=== PATIENT | male | born 1935 | race Caucasian/White ===

== ENCOUNTER 2018-01-24 11:19 | Emergency (ER) | payer MEDICARE, BC ==
[2018-01-24] MEDS ORDERED: Bacitracin Zinc 1 Packet ONE (12:39)
[2018-01-24] MEDS ORDERED: Adacel (T-DAP) 0.5 ML VIAL ONE (12:50)
== END 2018-01-24 13:15 | disposition home or self-care (01) ==
LOC: ERS 11:19
DX: S51.012A Laceration without foreign body of left elbow, initial encounter (principal); I25.10 Atherosclerotic heart disease of native coronary artery without angina pectoris; I11.0 Hypertensive heart disease with heart failure; I50.9 Heart failure, unspecified; E03.9 Hypothyroidism, unspecified; K21.9 Gastro-esophageal reflux disease without esophagitis; E78.5 Hyperlipidemia, unspecified; W01.0XXA Fall on same level from slipping, tripping and stumbling without subsequent striking against object, initial encounter
CPT/HCPCS: 90471; 90715

== ENCOUNTER 2018-02-02 13:42 | Outpatient (CLI) | payer MEDICARE, BC ==
[~2018-02-02 13:42] MED LIST: Sodium Chloride 0.9% 15 ML NEB ONE
--- NOTE | 2018-02-02 19:11 | HP ---
DATE OF SERVICE: 02/02/2018 HISTORY OF PRESENT ILLNESS: Mr. Jack Angelo is a very pleasant 82-year-old gentleman, who presents to the [facility] for evaluation of a wound of the left upper arm from a skin tear. The patient s tates that he fell approximately 10 days ago. He states that for the wound of his left upper arm, he was seen in the Emergency Department on the following day after his fall. The patient states that t he wound from his skin tear was cleansed and antibiotic ointment applied and bandaged. The patient s vandana being seen in the Emergency Department has been receiving dressing changes every other day of an antibiotic ointment followed by 4 x 4s and Kerlix secured with tape. The wound is being cleansed wi th water at the time of dressing changes. At the time of the patient's visit in the Emergency Depart ment, Mr. Angelo was referred to the Wound Center for further evaluation and treatment. PAST MEDICAL HISTORY: 1. Psoriasis. 2. Hypertension. 3. Atrial fibrillation. 4. Coronary artery disease. 5. History of bladder cancer. 6. Cardiomyopathy. 7. Diabetes mellitus. 8. Osteoarthritis. 9. Gastroesophageal reflux disease. 10. Choledocholithiasis. 11. History of chronic pancreatitis. 12. COPD. 13. History of hepatic encephalopathy. 14. Chronic liver disease. PAST SURGICAL HISTORY: 1. Removal of scar from neck. 2. Knee arthroscopy. 3. Coronary artery bypass grafting x3/intraoperative maze procedure. 4. Laser ablation of bladder tumor x3. 5. Right shoulder replacement and left shoulder replacement. 6. Cystectomy/Penny pouch and prostatectomy in 2004. 7. Laparoscopic cholecystectomy. 8. AICD placement. MEDICATIONS: 1. Aspirin 81 mg. 2. Atorvastatin. 3. Coenzyme Q10. 4. Coreg. 5. Tarceva. 6. NovoLog. 7. Omeprazole. 8. Xifaxan. 9. Potassium chloride. 10. Torsemide. 11. Metolazone. 12. Lisinopril. 13. Magnesium oxide. 14. Lactulose. 15. Zenpep. 16. Synthroid. 17. Advair Diskus. 18. Spiriva. 19. Folic acid. 20. Cinnamon. 21. Vitamin D3. ALLERGIES: No known diagnosed allergies. SOCIAL HISTORY: Significant for tobacco use of up to 1 pack of cigarettes per day for 30 years. The patient states that he stopped smoking 25 years ago. The patient also admits to the moderate consum ption of alcohol in the past. The patient states that he stopped consuming alcohol completely 12 yea rs ago. FAMILY HISTORY: Significant for diabetes mellitus. The patient states that his son and a half-broth er were both diagnosed with diabetes mellitus. Family history is negative for coronary artery diseas e. PHYSICAL EXAMINATION: VITAL SIGNS: Temperature 97.5, pulse 71, respirations 17, blood pressure 106/63. Accu-Chek is 204. GENERAL: An 82-year-old gentleman sitting on wheelchair in examination room, in no acute distress. HEENT: Normocephalic, atraumatic. NECK: No nuchal rigidity. CHEST: Clear to auscultation. CARDIOVASCULAR: Irregular. ABDOMEN: Soft. EXTREMITIES: A wound of the left upper arm is present, which measures approximately 7.1 x 3.0 cm. G ranulation tissue is present within the wound margins. No purulent drainage is associated with the w ound. No erythema of the skin surrounding the wound is present. No maceration of the skin of the pe riwound is noted. ASSESSMENT AND PLAN: 1. Wound of left upper arm from a skin tear subsequent to a fall. Dressing changes of Silvercel, 4 x 4s, Kerlix, and an Oracio bandage will be initiated today. These dressing changes are to be performed on a daily basis or alternatively every other day after cleansing and irrigation. I will see Mr. Me choudhary again in two weeks if the wound is still present at this time. No antibiotics will be prescribe d today based upon the appearance of the wound. The patient understands and is in agreement with the preceding treatment plan. 2. Psoriasis. 3. Hypertension. 4. Atrial fibrillation. 5. Coronary artery disease. 6. History of bladder carcinoma. 7. Cardiomyopathy. 8. Diabetes mellitus. The patient's Accu-Chek in clinic today is 204. The patient has been told th at for optimal wound healing, his blood glucoses should remain below 150. 9. Osteoarthritis. 10. Gastroesophageal reflux disease. 11. Choledocholithiasis. 12. History of chronic pancreatitis. 13. Chronic obstructive pulmonary disease. 14. History of hepatic encephalopathy. 15. Chronic liver disease.
== END 2018-02-02 13:43 | disposition home or self-care (01) ==
LOC: WCC 13:42
PROVIDERS: ATTEND Family Medicine
DX: S41.102D Unspecified open wound of left upper arm, subsequent encounter (principal); E11.9 Type 2 diabetes mellitus without complications; K21.9 Gastro-esophageal reflux disease without esophagitis; L40.9 Psoriasis, unspecified; I10 Essential (primary) hypertension; I48.91 Unspecified atrial fibrillation; J44.9 Chronic obstructive pulmonary disease, unspecified; K76.9 Liver disease, unspecified; I25.10 Atherosclerotic heart disease of native coronary artery without angina pectoris; I51.7 Cardiomegaly; M19.90 Unspecified osteoarthritis, unspecified site; K80.50 Calculus of bile duct without cholangitis or cholecystitis without obstruction; Z85.51 Personal history of malignant neoplasm of bladder; Z86.61 Personal history of infections of the central nervous system
CPT/HCPCS: 36416; 97602; 99203; A4218; G0463

== ENCOUNTER 2018-12-24 09:40 | Outpatient (CLI) | payer MEDICARE, BC ==
--- NOTE | 2018-12-24 12:02 | ULT ---
HEPATIC DOPPLER ULTRASOUND: HISTORY: Cirrhosis, pancreatitis. FINDINGS: Multiple longitudinal and transverse images of the liver were obtained using a Multihertz curvilinear transducer. Real-time, color flow, and spectral waveform Doppler analysis demonstrates visualized p ortions of the pancreas to be unremarkable. Normal flow is seen in the hepatic veins. Hepatopetal f low is seen in the portal system. Good blood flow is seen in the inferior vena cava. No evidence of intrahepatic biliary dilatation seen. The gallbladder has been surgically removed. The spleen is unremarkable. The abdominal aorta demonstrates a fusiform mid abdominal aortic dilatation, axial diameter measuring 2.9 x 3.4 cm with an area of aneurysmal dilatation superior inferiorly having a length of 4.6 cm. IMPRESSION: Infrarenal abdominal aortic aneurysm. Correlate with CT angiography. POS: SENG
== END 2018-12-24 09:41 | disposition home or self-care (01) ==
LOC: BICULT 09:40
PROVIDERS: ATTEND Internal Medicine Gastroenterology
DX: K86.1 Other chronic pancreatitis (principal); K74.60 Unspecified cirrhosis of liver; K86.89 Other specified diseases of pancreas; I71.4 Abdominal aortic aneurysm, without rupture
CPT/HCPCS: 76705

== ENCOUNTER 2019-08-23 09:39 | Outpatient (CLI) | payer MEDICARE, BC ==
--- NOTE | 2019-08-23 11:03 | ULT ---
Hepatic sonogram with duplex evaluation HISTORY: Liver disease. FINDINGS: Gallbladder is surgically absent. Common duct is 0.7 cm. Liver heterogeneous without focal mass or intrahepatic biliary dilatation. No free fluid. Spleen measures up to 11.5 cm. Good color and spectral Doppler flow within the splenic artery. Hepati c artery not well documented. Fusiform dilatation of the lower abdominal aorta measures up to 3.0 cm AP diameter on today's exam. Portal venous flow is towards the liver. Hepatic venous flow is towar ds the IVC. IMPRESSION: Status post cholecystectomy. No evidence of biliary obstruction. No evidence of portal venous hypertension. Lower abdominal aortic aneurysm, stable.
== END 2019-08-23 09:40 | disposition home or self-care (01) ==
LOC: ULT 09:39
PROVIDERS: ATTEND Internal Medicine Gastroenterology
DX: K86.1 Other chronic pancreatitis (principal); K21.9 Gastro-esophageal reflux disease without esophagitis; K74.60 Unspecified cirrhosis of liver; K72.90 Hepatic failure, unspecified without coma; R93.5 Abnormal findings on diagnostic imaging of other abdominal regions, including retroperitoneum; I85.00 Esophageal varices without bleeding; Z90.49 Acquired absence of other specified parts of digestive tract; I71.4 Abdominal aortic aneurysm, without rupture; C25.9 Malignant neoplasm of pancreas, unspecified
CPT/HCPCS: 36415; 76705; 86301

== ENCOUNTER 2019-08-27 07:57 | Day surgery (SDC) | payer MEDICARE, BC ==
[2019-08-26 09:10] VITALS: BMI 25.7
[2019-08-27] MEDS ORDERED: PHENYLEPHRINE-NS 100 MCG/ML 10 ML SYRINGE ONE (09:58)
[2019-08-27] MEDS ORDERED: Furosemide 20 MG/2 ML VIAL ONE (10:21)
--- NOTE | 2019-08-27 10:54 | RAD ---
Chest AP view INDICATION: Pulmonary edema COMPARISON: January 13, 2016 FINDINGS: Lungs:There is interstitial prominence bilaterally suspicious for interstitial edema. Cardiac silhouette:There is moderate cardiomegaly. Pulmonary vasculature:There is mild pulmonary vascular congestion. Pleural spaces:No pleural effusion or pneumothorax is demonstrated. Upper abdomen:No abnormality seen. Osseous structures: There are bilateral total shoulder replacements. There is healed deformity involv ing the right posterior chest wall which is stable. Additional findings:Dual-lead AICD appears unchanged. Post-CABG change is stable. IMPRESSION: Mild CHF
--- NOTE | 2019-08-29 17:23 | EKG ---
Test Reason : Blood Pressure : / mmHG Vent. Rate : 076 BPM Atrial Rate : 076 BPM P-R Int : 000 ms QRS Dur : 162 ms QT Int : 458 ms P-R-T Axes : 000 100 -79 degrees QTc Int : 515 ms Demand pacemaker; interpretation is based on intrinsic rhythm Right bundle branch block Marked T-wave abnormality, consider inferolateral ischemia Abnormal ECG When compared with ECG of 13-JAN-2016 06:54, Significant changes have occurred Confirmed by TREVOR HOPKINS (2) on 08/29/2019 5:23:18 PM Referred By: CAROL Confirmed By:TREVOR HOPKINS
== END 2019-08-27 12:18 | disposition home or self-care (01) ==
LOC: SDC 07:57
PROVIDERS: ATTEND Internal Medicine Gastroenterology
DX: K21.9 Gastro-esophageal reflux disease without esophagitis (principal); K86.1 Other chronic pancreatitis; M19.90 Unspecified osteoarthritis, unspecified site; I25.10 Atherosclerotic heart disease of native coronary artery without angina pectoris; E11.9 Type 2 diabetes mellitus without complications; K72.90 Hepatic failure, unspecified without coma; Z79.4 Long term (current) use of insulin; Z79.82 Long term (current) use of aspirin; Z79.899 Other long term (current) drug therapy; Z95.1 Presence of aortocoronary bypass graft; Z95.810 Presence of automatic (implantable) cardiac defibrillator; Z53.8 Procedure and treatment not carried out for other reasons
CPT/HCPCS: 36416; 71045; 93005; 93010; J1940

== ENCOUNTER 2019-09-23 10:29 | Outpatient (CLI) | payer MEDICARE, BC ==
--- NOTE | 2019-09-23 14:29 | CT ---
CT ABDOMEN WITH AND WITHOUT IV CONTRAST: INDICATIONS: Assess for pancreatic mass. COMPARISON: CTs chest from [facility] on 06/02/2019 and 10/20/2018. TECHNIQUE: Post contrast images were obtained in arterial phase and delayed venous phase. FINDINGS: Images through the lung bases show cardiomegaly. No evidence of parenchymal process seen in the lung bases. The liver is homogeneous. There is intrahepatic biliary duct dilatation. The patient appears to be po st cholecystectomy. The body and tail of the pancreas is very atrophic with no significant pancreatic tissue identified. Slight prominence of the pancreatic duct in the body of the pancreas. There is an irregular area of enhancing tissue in the region of the pancreatic head, measuring up to 2.6 cm in AP dimension in the axial plane. This could represent an enhancing mass in the head of the pancreas although it may represent normal enhancing pancreatic tissue. There is no significant pancre atic tissue seen in the body or tail of the pancreas. The size of this area has not significantly flip nged when compared to the prior CT scans at [facility] which would suggest a probable deysi ign process. MRI with MRCP may also be of benefit to further characterize this area. The stomach and duodenum are unremarkable. There is a small nodule involving the medial limb of the right adrenal gland, measuring 1 cm. The adr enal glands are otherwise unremarkable. There are bilateral renal cystic lesions, which appear benign. Both kidneys show symmetric enhancemen t. The visualized small bowel loops are of normal caliber. The aorta is calcified and aneurysmal, measuring up to 3.6 cm in AP dimension in the lower abdominal aorta. Mural thickening in the sigmoid colon is nonspecific and may be due to nondistention. Images through the pelvis show a mildly contracted bladder. In the upper abdomen there are increased vascular structures with evidence of esophageal varices, whi ch may indicate portal hypertension. IMPRESSION: 1. The body and tail of the pancreas are severely atrophic with no discernible pancreatic tissue pres ent. There is enhancing tissue in the region of the head of the pancreas, which could represent a osullivan creatic mass or normally enhancing pancreatic tissue. Consider further evaluation with endoscope retr ograde cholangiopancreatography or magnetic resonance imaging with magnetic resonance cholangiopancre atography as indicated. 2. There is intrahepatic and extrahepatic biliary duct dilatation. 3. Evidence of varices in the splenic hilum and paraesophageal region suggesting portal hypertension. 4. Bilateral renal cystic lesions. 5. Fusiform aneurysmal dilatation of the abdominal aorta. 6. Nonspecific mural thickening of the sigmoid colon. 7. Tiny right adrenal nodule. POS: TPC
== END 2019-09-23 10:30 | disposition home or self-care (01) ==
LOC: BICCT 10:29
PROVIDERS: ATTEND Internal Medicine Gastroenterology
DX: K86.1 Other chronic pancreatitis (principal); K74.60 Unspecified cirrhosis of liver; K72.90 Hepatic failure, unspecified without coma; R93.3 Abnormal findings on diagnostic imaging of other parts of digestive tract; R93.5 Abnormal findings on diagnostic imaging of other abdominal regions, including retroperitoneum; I85.00 Esophageal varices without bleeding; I71.4 Abdominal aortic aneurysm, without rupture; N28.9 Disorder of kidney and ureter, unspecified; K63.89 Other specified diseases of intestine
CPT/HCPCS: 74178; 82565

== ENCOUNTER 2020-01-24 10:47 | Outpatient (CLI) | payer MEDICARE, BC ==
--- NOTE | 2020-01-24 11:49 | CT ---
CT abdomen and pelvis without and with IV contrast HISTORY: Pancreatic lesion. Follow-up. COMPARISON: 09/23/2019. FINDINGS: Parenchymal scarring at the lung bases similar in appearance to the prior study. The 1.0 cm noncalcified nodule at the right medial lung base is stable. Gallbladder is surgically absent with associated distention of the biliary system. Around the region of the pancreatic head, hemostasis clips and dystrophic calcifications are similar in appearance to the prior study. The area of soft tissue contrast enhancement at the expected location of the pancrea tic head, measuring up to 2.6 cm oblique diameter on the axial images, is stable in appearance and favored to represent residual pancreatic tissue. Pancreatic duct remains slightly distended with comp lete atrophy of the body and tail of the pancreas. Splenic and gastric varices are again demonstrated. Tiny right adrenal nodule is stable. Cysts of each kidney are unchanged in appearance. Fusiform dilatation of the densely calcified lower abdominal aorta measures up to 3.5 cm, stable. Postoperative changes of the bowel in the lower anterior pelvis with adjacent scarring in the abdomin al fat extending to the anterior abdominal wall. Degenerative changes throughout the lumbar spine. IMPRESSION: Stable CT appearance of the soft tissue enhancement at the expected location of the pancr eatic head, favored to represent residual pancreatic tissue. Findings of chronic pancreatitis and severe pancreatic atrophy are also stable. Findings of portal venous hypertension, stable. Atherosclerotic calcification with fusiform lower abdominal aortic aneurysm, stable
== END 2020-01-24 10:48 | disposition home or self-care (01) ==
LOC: BICCT 10:47
PROVIDERS: ATTEND Internal Medicine Gastroenterology
DX: D49.0 Neoplasm of unspecified behavior of digestive system (principal); R93.89 Abnormal findings on diagnostic imaging of other specified body structures; K86.1 Other chronic pancreatitis; K86.89 Other specified diseases of pancreas; I71.4 Abdominal aortic aneurysm, without rupture; K76.6 Portal hypertension
CPT/HCPCS: 74178; 82565

== ENCOUNTER 2020-11-05 12:43 | Emergency (ER) | payer MEDICARE, BC | END 2020-11-05 15:19 | disposition left against medical advice (07) | LOC: ERS 12:43 | DX: Z53.21 Procedure and treatment not carried out due to patient leaving prior to being seen by health care provider (principal) ==

== ENCOUNTER 2020-12-05 23:01 | Inpatient (IN) | payer MEDICARE, BC ==
--- NOTE | 2020-12-05 23:37 | RAD ---
Exam:2 views left hip HISTORY: Fall. Pain. COMPARISON: None FINDINGS: Left femoral neck fracture with associated deformity. IMPRESSION: Left femoral neck fracture.
--- NOTE | 2020-12-05 23:38 | RAD ---
Exam: One view pelvis HISTORY: Fall. Pain. FINDINGS: Intact iliac wings. Sacral ala are preserved. Intact bilateral obturator rings. Contour of both femoral heads are maintained. Symmetric hip joint spaces. Unremarkable right hip. Left femoral neck fracture with foreshortening. Extensive atherosclerosis IMPRESSION: Left femoral neck fracture.
[2020-12-05] MEDS ORDERED: Ketorolac Tromethamine 30 MG/ML VIAL ONE (23:40)
[2020-12-06 00:03] LABS: ALT (SGPT) 22 U/L (8-55); AST (SGOT) 26 U/L (5-34); Albumin 3.7 g/dL (3.4-4.8); Alkaline Phosphatase 103 U/L (40-110); Anion Gap 16 mmol/L (10-20); BUN (Urea Nitrogen) 34 mg/dL (8.4-25.7); Calc. Creatinine Clearance 0 mL/min (70-130); Calcium 8.8 mg/dL (7.8-10.44); Carbon Dioxide 20 mmol/L (23-31); Chloride 109 mmol/L (98-107); Globulin 2.7 g/dL (2.4-3.5); Glucose 243 mg/dL (83-110); Potassium 3.9 mmol/L (3.5-5.1); Protein, Total 6.4 g/dL (5.8-8.1); Sodium 141 mmol/L (136-145)
[2020-12-06 00:11] LABS: Anisocytosis SLIGHT = 6-15 cells (100X) (0-5/hpf); Band 12 % (5-11); Hemoglobin 8.5 g/dL (14.0-18.0); Lymphocytes 35 % (21-51); MDiff Complete? YES; Mean Corpuscular HGB CONC 33.3 g/dL (32.0-36.0); Mean Corpuscular Hemoglobin 36.5 pg (27.0-31.0); Mean Platelet Volume 11.3 fL (7.4-10.4); Monocytes 16 % (0-10); Myelocyte 2 % (0-0); Neutrophil 31 % (42-75); Platelet Count 30 thou/uL (130-400); Platelet Morphology Comment Appears Decreased; RBC Distribution Width 14.6 % (11.5-14.5); Reactive Lymphocytes 4 % (0-10); Red Blood Cell (RBC) Count 2.34 mill/uL (4.70-6.10); Reflex for Review?? YES; White Blood Cell (WBC) Count 1.2 thou/uL (4.8-10.8)
--- NOTE | 2020-12-06 00:16 | CT ---
Exam: Head CT without contrast HISTORY: Mechanical fall. Pain. COMPARISON: 01/13/2016 FINDINGS: Hemorrhage: No intraparenchymal hemorrhage or extra-axial hematoma. Brain parenchyma: Cortical bryant-white matter differentiation is preserved. No mass effect or midline shift. Basilar cisterns are patent.Age-appropriate atrophy. Minimal chronic small vessel ischemic changes of white matter. Ventricular system: Ventricles and sulci are patent and symmetric. Calvarium: Intact. Sinuses and mastoid air cells: Adequate aeration. IMPRESSION: No intracranial post traumatic sequelae.
[2020-12-06 00:32] LABS: INR-International Normal Ratio 1.4
[2020-12-06 00:38] LABS: Phosphorus 3.4 mg/dL (2.3-4.7)
[2020-12-06] MEDS ORDERED: hydrALAZINE 20 MG/ML VIAL SLOW IVP PRN (01:20)
[2020-12-06] MEDS ORDERED: Dextrose 50% Abboject 50 ML SYRINGE SLOW IVP PRN (01:20)
[2020-12-06] MEDS ORDERED: Morphine 2 MG/ML VIAL SLOW IVP PRN (01:20)
[2020-12-06] MEDS ORDERED: Dextrose 5% in Water 1,000 ML IV PRN (01:20)
[2020-12-06] MEDS ORDERED: Ondansetron PF 4 MG/2 ML Vial IVP PRN (01:20)
[2020-12-06] MEDS ORDERED: traMADol HCl 50 MG TAB PO PRN ×2 (01:25)
[2020-12-06] MEDS ORDERED: Cyclobenzaprine 10 MG TAB PO PRN (01:25)
[2020-12-06] MEDS ORDERED: Morphine 4 MG/ML VIAL ONE (01:26)
[2020-12-06] MEDS ORDERED: Magnesium 2 GM/50 ML 2 GM in Premix Bag 1 BAG IVPB SCH (01:30)
[2020-12-06] MEDS ORDERED: Sodium Chloride 0.9% 500 ML IV SCH (01:30)
[2020-12-06] MEDS ORDERED: PHOS-NAK 1 PKT PACK PO SCH (01:30)
[2020-12-06 02:50] VITALS: BMI 26.2
--- NOTE | 2020-12-06 03:29 | HP ---
TRAUMA SURGEON: Dr. Peñaloza. CONSULTING PHYSICIANS: Dr. Sood and Dr. Dennis. HISTORY OF PRESENT ILLNESS: The patient is an 84-year-old male, presented to the emergency department via EMS after a mechanical fall at home. The patient reports that he was using his cane and got hung up on a rug subsequently falling. He was found to have a left femoral neck fracture. Trauma was consulted to admit the patient. Orthopedic Surgery would like to do surgery tomorrow. Upon my evaluation, the patient complained of left-sided hip pain. He denies hitting his head, loss of consciousness, and anticoagulation use. He has several medical problems including a significant cardiac history. At the time of my evaluation, the patient is on room air and does not seem to be decompensated. He denies chest pain, shortness of breath, nausea, vomiting, diarrhea. Denies numbness and tingling in the bilateral upper and lower extremities. Denies neck or back pain. The patient was seen by Dr. Dennis. He reports that Dr. Hayes completed an echo two months ago. I was not able to find the results in [employer] or [employer]. He recently saw a cardiovascular surgeon in [place] to address his severe mitral valve regurg and tricuspid valve regurg. It appears that they elected to not do surgery. The patient does have a pacemaker and ICD implanted. REVIEW OF SYSTEMS: All additional 10-point review of systems negative except as indicated above. PAST MEDICAL HISTORY: ICD and pacemaker, CABG, diabetes, severe mitral valve regurg and tricuspid valve regurg, ischemic cardiomyopathy, systolic heart failure, GERD, diabetes, hypothyroidism, hypertension, bladder cancer status post bladder resection, liver cirrhosis, coronary artery disease, psoriasis, chronic pancreatitis, COPD. PAST SURGICAL HISTORY: CABG, right shoulder replacement, left shoulder replacement, cystectomy with Penny pouch and prostatectomy, lap choly, and AICD/pacemaker placement. SOCIAL HISTORY: The patient is a previous smoker. He also stopped drinking about 10 years ago. He denies any drug use. He lives at home with either a or a lady friend. He uses a cane and a walker to get around. MEDICATIONS: The patient was not completely aware of all of his medications. We are waiting for a list from his family, but it includes; 1. Carvedilol. 2. Aspirin. 3. Levothyroxine. 4. Omeprazole. 5. Tresiba. 6. Trulicity. 7. Torsemide. ALLERGIES: NO KNOWN DRUG ALLERGIES. PHYSICAL EXAMINATION: VITAL SIGNS: Temperature 98.6, pulse 84, respirations 18, oxygen saturation 96% on room air, blood pressure 123/85. PRIMARY SURVEY: Airway intact. Adequate breath sounds bilaterally. 2+ pulses in the bilateral radials, femorals, and DPs. GCS 15. Gross motor and sensation are intact. No lacerations or external bleeding. SECONDARY SURVEY: HEAD: Normocephalic, atraumatic. No gross palpable skull deformities or tenderness. EYES: Pupils 3-2, equal, round, reactive to light bilaterally. ENT: No signs of trauma. C-SPINE: No step-offs or deformities. Nontender. C-collar not in place. CHEST: Nontender. No crepitus. No abrasions or ecchymosis. Equal chest movement. The patient with mid diastolic murmur. ABDOMEN: Soft, nontender, nondistended. PELVIS: Stable to palpation. Nontender. RECTAL: Deferred. GENITOURINARY: Deferred. EXTREMITIES: The patient with left lower extremity shortened, left lateral thigh pain. The patient also with 2+ pitting edema, bilateral lower extremities. This is chronic. Otherwise, no other deformity noted. Pulses intact in all 4 extremities. BACK/SPINE: No step-offs, deformities, or tenderness to palpation of the thoracic or lumbar spine. No abrasions or ecchymosis noted. NEUROLOGIC: 5/5 strength in bilateral stretching machine tender frame, plantar flexion, and dorsiflexion. Gross normal sensation x4 extremities. LABORATORY FINDINGS: White count 1.2, hemoglobin 8.5, hematocrit 25.7, platelets 30. INR 1.4. Sodium 141, potassium 3.9, chloride 109, bicarb 20, BUN 34, creatinine 1.35, glucose 243, phosphorus 3.4, magnesium 1.3, total bilirubin 1.0, AST 26, ALT 22, alkaline phosphatase 103. DIAGNOSTIC FINDINGS: CT scan of the brain demonstrates no intracranial posttraumatic sequela. X-ray of the left hip demonstrates left femoral neck fracture. X-ray of the pelvis demonstrates left femoral neck fracture. Chest x-ray is completed, read is pending. ASSESSMENT: 1. Status post mechanical fall from standing. 2. Left femoral neck fracture. 3. Acute kidney injury. 4. History of pacemaker and AICD, coronary artery bypass grafting, ischemic cardiomyopathy, systolic heart failure, severe mitral valve regurgitation and tricuspid valve regurgitation, coronary artery disease, hypertension, chronic obstructive pulmonary disease, diabetes, gastroesophageal reflux disease, hypothyroidism, bladder cancer, liver cirrhosis, psoriasis, chronic pancreatitis. PLAN: The patient will be admitted to the Trauma Service. He will receive 500 mL of normal saline at 100 an hour for one bag to improve his kidney function. We will closely monitor for signs of heart failure and volume overload. We will restart his home carvedilol dosing with hold parameters. Orthopedic Surgery has been consulted and would like to take the patient to the OR. We will ask Dr. Coker and Dr. Dennis to evaluate the patient preoperatively tomorrow as the patient has severe mitral valve and tricuspid valve regurgitation as well as systolic heart failure. He is at increased risk to do poorly postop as he also has an ICD. He has a history of COPD and liver cirrhosis on top of his cardiac history. I think it would be ortiz of us to ask Dr. Coker and Dr. Dennis to evaluate the patient preoperatively before the patient is appropriate for surgery. The patient does not have any signs of acute congestive heart failure. However, we will complete an echo in the meantime as previous echo completed in the outpatient setting could not be identified in [facility] or [facility]. The patient will likely need placement in acute rehab facility postoperatively. This patient was discussed with Dr. Peñaloza before this dictation. Job ID: [id number]
[2020-12-06] MEDS: Acetaminophen 325 MG TAB PO SCH ×3 (05:57→18:33)
[2020-12-06] MEDS ORDERED: CEFAZOLIN 2 GM in Premix Bag 1 BAG IVPB SCH (08:15)
--- NOTE | 2020-12-06 08:50 | CON ---
DATE OF CONSULTATION: This is Renan Teague PA-C dictating a report for Helder Sood MD. HISTORY OF PRESENT ILLNESS: We were asked by Trauma to see the patient. The patient was at home. He lives with an another individual female and he got up without his cane, caught his foot on the carpet, fell, landing on his left hip. He sustained a left hip fracture yesterday. He could not move it today. He can move it a little bit better, but still has a fair amount of pain with moving. He denies any other injuries. He does have a fairly significant health history, but had an echo a few months ago, I have not looked up the results yet. Currently, he is resting in bed in room 3308, no acute distress. He got a fair amount of sleep last night. No numbness and tingling down the leg, but is able to move it a little bit better than yesterday he thinks. PAST MEDICAL HISTORY: Positive for pacemaker, defibrillator, CABG, diabetes, mitral valve regurg, tricuspid regurg, ischemic cardiomyopathy, GERD, systolic heart failure, hypothyroid, hypertension, bladder cancer with resection, cirrhosis, coronary artery disease, psoriasis, chronic pancreatitis, COPD. PAST SURGICAL HISTORY: CABG, right and left shoulder replacements, cystectomy with Penny pouch and prostatectomy, lap choly, AICD/pacemaker placement. SOCIAL HISTORY: The patient is retired from the [employer] and [employer]. He is a past smoker, drinker. No drug use. Lives at home with a lady friend. He continues to use a cane around the house and walker when he is out. CURRENT MEDICATIONS: 1. Carvedilol. 2. Aspirin. 3. Levothyroxine. 4. Omeprazole. 5. Tresiba. 6. Trulicity. 7. Torsemide. ALLERGIES: NONE. FAMILY HISTORY: For this particular occurrence is noncontributory. REVIEW OF SYSTEMS: Left hip pain. Otherwise, he is resting in bed in room 3308, in no acute distress. No chest pain. No respiratory issues. PHYSICAL EXAMINATION: GENERAL: Well-nourished, well-developed, very pleasant male, again resting in bed in room 3308, no acute distress. Speech clear. Affect pleasant. Answers questions appropriately. He is alert and oriented x3. HEENT: Scalp atraumatic. Face symmetric. Tongue midline. EXTREMITIES: Upper extremities equal size, shape, symmetry, normal bulk and tone. It is noted that he has multiple areas of bruising and skin scarring with very frail appearing skin, but he is moving his upper extremities symmetrically and sensations are intact. VITAL SIGNS: Respirations 16. No acute distress. PELVIS: No pain with rocking. Left hip, increased pain with internal-external rotation and pain otherwise. Lower extremities equal, size, shape, and symmetry. Normal bulk and tone. Also bruising to lower extremities. Sensations are intact. DP and PT pulses equal. ASSESSMENT: 1. Multiple health issues managed by Trauma. 2. Left hip fracture. PLAN: If the patient is cleared, we would like to do a hemiarthroplasty. I went over the procedure with the patient. He is familiar with ortho procedures as he has had bilateral shoulder replacement. We went over the risks and benefits of surgery, which he understands well. His questions and concerns have been addressed and he is amenable to go forth with surgery. I will let the patient know that we will wait Trauma's orders, but if able we will get his hip fixed today and get him set up with PT/OT afterwards and Case Management as he will probably need some aftercare rehab which the patient understands. Job ID: [id number]
[2020-12-06] MEDS ORDERED: diphenhydrAMINE 50 MG/ML VIAL ONE (08:51)
[2020-12-06] MEDS ORDERED: Rocuronium Bromide 10 MG/ML (10ML VIAL) ONE (08:51)
[2020-12-06] MEDS ORDERED: Lidocaine 1% PF 5 ML VIAL ONE (08:51)
[2020-12-06] MEDS ORDERED: PHENYLEPHRINE-NS 100 MCG/ML 10 ML SYRINGE ONE (08:51)
[2020-12-06] MEDS ORDERED: PROPOFOL 200 MG/20 ML VIAL ONE (08:51)
[2020-12-06] MEDS ORDERED: Ondansetron PF 4 MG/2 ML Vial ONE (08:51)
[2020-12-06] MEDS ORDERED: Famotidine/PF 20 mg/2ml Vial SLOW IVP SCH (09:00)
--- NOTE | 2020-12-06 09:03 | RAD ---
EXAM: XR Chest 1 View Portable PROVIDED CLINICAL HISTORY: Fall, head injury COMPARISON: 08/27/2019 FINDINGS: The cardiac silhouette appears prominently enlarged. Median sternotomy changes and left subclavian ca rdiac pacing device are redemonstrated. Bilateral shoulder arthroplasties are again demonstrated. No focal consolidation, pleural fluid or pneumothorax apparent. IMPRESSION: No evidence for an acute cardiopulmonary process.
[2020-12-06 09:35] LABS: SARS-CoV-2 MS2 Positive; SARS-CoV-2 N Gene Negative; SARS-CoV-2 S Gene Negative; SARS-CoV-2 by NAA Not Detected (NotDetected); SARS-CoV-2 orf1ab Negative
[2020-12-06] MEDS: Carvedilol 6.25 MG TAB PO SCH ×2 (10:24→15:33)
[2020-12-06] MEDS: Polyethylene Glycol 3350 17 GM Packet PO SCH (10:24)
[2020-12-06] MEDS: Senokot S 8.6-50 MG TAB PO SCH ×2 (11:09→21:10)
--- NOTE | 2020-12-06 13:08 | CON ---
DATE OF CONSULTATION: HISTORY OF PRESENT ILLNESS: The patient is an 84-year-old gentleman, who had a fall and needs to undergo surgery. The patient has a long history of coronary artery disease. In 2003, he underwent coronary artery bypass graft surgery x3. He had a JERONIMO placed to LAD, saphenous vein graft to the PDA and RCA. The patient also developed ischemic cardiomyopathy. He had placement of automatic implantable cardiac defibrillator. The patient also has been diagnosed with atrial fibrillation. He had recurrent bleeding and eventually underwent placement of a Watchman device. The patient also has a history of cirrhosis. The patient also has severe tricuspid regurgitation. He underwent an evaluation in [place], but was felt to be at prohibitive risk for undergoing tricuspid valve surgery. The patient denies having any chest discomfort. He had a fall and then reports having severe hip pain. The patient denies having any PND or orthopnea. PAST MEDICAL HISTORY: 1. Coronary artery disease. 2. History of cardiomyopathy. 3. History of coronary artery bypass surgery. 4. History of left atrial appendage ligation. 5. History of AICD placement. 6. History of bladder carcinoma. 7. Cirrhosis. 8. History of pancreatitis. PAST SURGICAL HISTORY: Prostatectomy, cholecystectomy, shoulder surgery, coronary artery bypass surgery, cystectomy. SOCIAL HISTORY: Former heavy user of ethanol. Nonsmoker. MEDICATIONS: See nursing list. ALLERGIES: NO KNOWN DRUG ALLERGIES. PHYSICAL EXAMINATION: GENERAL: Pale, ill-appearing gentleman, in mild distress. VITAL SIGNS: Blood pressure 135/79. NECK: No jugular venous distention. LUNGS: Coarse breath sounds. HEART: Regular rate and rhythm. Normal S1 and S2 with a 3/6 holosystolic murmur. ABDOMEN: Nondistended. EXTREMITIES: Showed moderate bilateral edema. VASCULAR: Radial pulse 2+. LABORATORY DATA: White blood cell count 1.2, hemoglobin 8.5, hematocrit 25.7, and his platelets were 30. Sodium was 141, potassium 3.9, chloride 109, bicarbonate 20, BUN 34, creatinine 1.35, glucose is 201. ASSESSMENT AND PLAN: This gentleman had a fall, who needs to undergo surgery. He has undergone a recent echocardiogram, which revealed to have normal left ventricular systolic function. He has an increased but acceptable risk for undergoing hip orthopedic surgery. I am, however, concerned about his severe pancytopenia.I would recommend hematology evaluation prior to undergoing surgery. I will repeat the patient's CBC. We will follow this patient with you through his hospitalization. Job ID: [id number] [id number]
[2020-12-06 13:24] LABS: Band 12 % (5-11); Eosinophils 1 % (0-10); Hemoglobin 9.1 g/dL (14.0-18.0); Lymphocytes 21 % (21-51); MDiff Complete? YES; Macrocytosis SLIGHT = 6-15 cells (100X) (0-5/hpf); Mean Corpuscular HGB CONC 33.4 g/dL (32.0-36.0); Mean Corpuscular Hemoglobin 36.6 pg (27.0-31.0); Mean Platelet Volume 15.5 fL (7.4-10.4); Metamyelocyte 1 % (0-0); Monocytes 33 % (0-10); Neutrophil 31 % (42-75); Ovalocytes SLIGHT = 2-5 cells (100X) (0-1/hpf); Platelet Count 26 thou/uL (130-400); Platelet Morphology Comment Appears Decreased; Polychromasia MODERATE = 3-4 cells (100X) (0-2/hpf); RBC Distribution Width 14.9 % (11.5-14.5); White Blood Cell (WBC) Count 3.1 thou/uL (4.8-10.8)
[2020-12-06] MEDS: Dexamethasone 4 mg/ml Vial SLOW IVP SCH ×2 (15:20→22:10)
[2020-12-06] MEDS ORDERED: SUGAMMADEX SODIUM 200 MG/2 ML VIAL ONE (17:49)
[2020-12-06] MEDS ORDERED: Fentanyl 100 MCG/2 ML VIAL ONE (17:55)
[2020-12-06] MEDS ORDERED: Promethazine HCl 25 MG/ML VIAL SLOW IVP PRN (18:08)
[2020-12-06] MEDS ORDERED: Promethazine HCl 25 MG/ML VIAL IM PRN (18:08)
[2020-12-06] MEDS ORDERED: Ondansetron HCl/PF 4 MG/2 ML Vial IVP PRN (18:08)
[2020-12-06] MEDS ORDERED: Sodium Chloride 0.9% 30 ML ONE (18:22)
[2020-12-06] MEDS ORDERED: Sodium Chloride For Inhalation 0.9% 3 ML NEB ONE (18:22)
--- NOTE | 2020-12-06 19:21 | PRG ---
DATE OF SERVICE: HISTORY: Patient was admitted early this morning, status post ground level fall, in which he sustained a left femoral neck fracture. The patient has significant comorbidities and was evaluated by Dr. Dennis of Cardiology this morning, and reported that he has increased but acceptable risk for undergoing orthopedic procedure. His concern as were the rest of the team his pancytopenia. With that in mind, platelets were made available to be given intraoperatively and we will follow this closely postoperatively and monitor for any bleeding. The patient has been n.p.o. since midnight. His pain has been controlled. PHYSICAL EXAMINATION: VITAL SIGNS: Temperature is 97.7, heart rate 61, blood pressure 118/76, respirations 14, oxygen saturation 95% on 2 L via nasal cannula. GENERAL: The patient is resting comfortably in bed. He was asleep at the time of our visit, but did wake up to answer our questions. He would answer simple questions and follow simple commands. He reports he had no complaints at this time. RESPIRATIONS: Nonlabored. Clear bilaterally. HEART: Regular rate and rhythm. ABDOMEN: Soft, nontender with active bowel sounds. EXTREMITIES: Neurovascularly intact x4. LABORATORY FINDINGS: White blood cell count 3.1, hemoglobin 9.1, hematocrit 27.3, platelets 26. There are no chemistries or radiographs reviewed this morning. ASSESSMENT AND PLAN: 1. Status post fall from standing. 2. Left femoral neck fracture, awaiting surgery. 3. Acute kidney injury. 4. History of pacemaker and AICD, coronary artery bypass grafting, ischemic cardiomyopathy, systolic heart failure, severe mitral valve regurgitation and tricuspid valve regurgitation, coronary artery disease, hypertension, chronic obstructive pulmonary disease, diabetes, gastroesophageal reflux disease, hypothyroidism, bladder cancer, liver cirrhosis, psoriasis, and chronic pancreatitis. PLAN: Plan will be to continue supportive care, encourage physical and occupational therapy, closely monitor his bleeding, platelets for the OR. Repeat labs and discuss placement tomorrow. The patient was evaluated this morning with Dr. Coker. Job ID: [id number]
[2020-12-06] MEDS: CEFAZOLIN 2 GM in Premix Bag 1 BAG IVPB SCH (21:09)
[2020-12-07] MEDS: Acetaminophen 325 MG TAB PO SCH ×4 (01:31→18:26)
[2020-12-07] MEDS: CEFAZOLIN 2 GM in Premix Bag 1 BAG IVPB SCH ×2 (05:14→13:37)
[2020-12-07] MEDS: Insulin Regular 300 UNITS/3 ML VIAL SC PRN ×3 (05:24→17:20)
[2020-12-07] MEDS: Dexamethasone 4 mg/ml Vial SLOW IVP SCH (05:25)
[2020-12-07 06:13] LABS: Anion Gap 14 mmol/L (10-20); BUN (Urea Nitrogen) 34 mg/dL (8.4-25.7); Calc. Creatinine Clearance 54 mL/min (70-130); Calcium 8.1 mg/dL (7.8-10.44); Carbon Dioxide 20 mmol/L (23-31); Chloride 114 mmol/L (98-107); Glucose 211 mg/dL (83-110); Magnesium 2.1 mg/dL (1.6-2.6); Phosphorus 3.5 mg/dL (2.3-4.7); Sodium 144 mmol/L (136-145)
[2020-12-07 06:46] LABS: Band 26 % (5-11); Hemoglobin 7.8 g/dL (14.0-18.0); Lymphocytes 7 % (21-51); MDiff Complete? YES; Macrocytosis SLIGHT = 6-15 cells (100X) (0-5/hpf); Mean Corpuscular HGB CONC 33.6 g/dL (32.0-36.0); Mean Corpuscular Hemoglobin 36.8 pg (27.0-31.0); Mean Platelet Volume 9.7 fL (7.4-10.4); Monocytes 20 % (0-10); Neutrophil 47 % (42-75); Platelet Count 50 thou/uL (130-400); Platelet Morphology Comment Appears Decreased; RBC Distribution Width 14.8 % (11.5-14.5); Red Blood Cell (RBC) Count 2.11 mill/uL (4.70-6.10); White Blood Cell (WBC) Count 3.9 thou/uL (4.8-10.8)
--- NOTE | 2020-12-07 08:01 | OP ---
DATE OF PROCEDURE: 12/06/2020 PREOPERATIVE DIAGNOSIS: Left femoral neck fracture, displaced. POSTOPERATIVE DIAGNOSIS: Left femoral neck fracture, displaced. PROCEDURE PERFORMED: Left hip hemiarthroplasty. ANESTHESIA: General. GEOGRAPHIC INFORMATION SYSTEM SURVEYOR: Sonny Marsh PA-C ESTIMATED BLOOD LOSS: 200 mL. IMPLANTS: DePuy system was used with a size 6 femoral stem, a 28 x 50 bipolar cup, and a +5 femoral head. COMPLICATIONS: None. DRAINS: None. SPECIMEN: None. OUTCOME: Satisfactory. INDICATIONS FOR PROCEDURE: The patient is an 84-year-old gentleman, status post ground level fall at home, sustaining a displaced left femoral neck fracture. After discussion with the patient including risks and benefits, we decided to proceed with left hip hemiarthroplasty to allow the patient to resume mobility and provide pain relief. I believe risks and benefits have been explained to the patient. I believe all questions have been answered. DESCRIPTION OF PROCEDURE: The patient was brought to the operating room and a time-out performed followed by induction of general anesthesia. Next, the patient was positioned in a right lateral decubitus position and sterile prep and drape were performed of the left lower extremity. Next, a curvilinear incision was made centered over the greater trochanter. After skin was sharply incised, dissection was carried down through the skin and subcutaneous tissue, exposing the fascia gracy and tensor fascia. This structure was incised in line with the skin incision and then a Charnley retractor was placed in the wound, reflecting the fascia gracy and tensor fascia and exposing the trochanteric bursa. The bursa was swept off the short external rotators. Next, while my shampoo assistant provided retraction of the abductors and the piriformis, the gemelli were reflected off the posterior aspect of the femur and reflected posteriorly, exposing the joint capsule. The capsule was then entered with T capsulotomy type incision and then the femoral head was removed with a corkscrew device. Next, my shampoo assistant provided further internal rotation of the hip for me to gain access to the proximal femur. A retractor was placed medially and then a femoral neck cut performed. Once the femoral neck was cut with the oscillating saw, excess bone removed and then the proximal femur further prepared to accept the stem. This was followed by box chisel, opening up the proximal femur followed by T-handle awl and then lateralizing reamer. Progressive T-handle awls were passed down the shaft up to a size 6, which gave good fit distally. Next, broaching was started at size 3 and continued up to size 6, which gave good proximal fit. At this point, a trial reduction was performed with +5 head. My shampoo assistant reduced the hip while I provided retraction of the soft tissue. The legs were felt to be equal length and he had excellent stability of the hip. The hip was then dislocated and the trial components removed. The wound was irrigated with 3 L of normal saline at this point, and then the final size 6 femoral stem was inserted in the proximal femur with no evidence of calcar fractures. The bipolar head was then applied to the stem and then the hip reduced. He was found to have excellent stability. The leaflets of the capsule were reapproximated with #1 Vicryl. This was then followed by #1 Vicryl for the fascia gracy and tensor fascia. 0 Vicryl was used for Keya's fascia followed by 2-0 Vicryl and patricia for the skin. A Xeroform gauze and tape dressing were applied to the thigh and then the patient was transferred to recovery room in stable condition. There were no complications. He tolerated the procedure well. Job ID: [id number]
[2020-12-07] MEDS: Senokot S 8.6-50 MG TAB PO SCH (09:46)
[2020-12-07] MEDS: Polyethylene Glycol 3350 17 GM Packet PO SCH (09:46)
[2020-12-07] MEDS: Carvedilol 6.25 MG TAB PO SCH ×2 (09:46→18:26)
--- NOTE | 2020-12-07 13:37 | RAD ---
AP PELVIS: 12/07/20 HISTORY: Postop. Arthritic changes of the lower lumbar spine and right hip are seen. Left hip prosthesis is partially visualized on this exam. IMPRESSION: 1. Placement of left hip prosthesis. 2. Postop changes of the pelvis probably related to a radical prostatectomy. POS: [facility]
--- NOTE | 2020-12-07 13:38 | RAD ---
LEFT HIP 2 VIEWS: HISTORY: Postop. FINDINGS: A total hip prosthesis is in good position. No evidence of fracture. IMPRESSION: Placement of a total hip prosthesis. POS: [facility]
--- NOTE | 2020-12-07 16:08 | PRG ---
DATE OF SERVICE: 12/07/2020 SUBJECTIVE: The patient is hospital day #2, postop day #1, status post ground level fall, in which he sustained a left femoral neck fracture. Yesterday, he underwent open reduction and internal fixation of that fracture, which he did well. Overnight, he had no issues. This morning, he started working with Physical and Occupational Therapy. He is tolerating a diet, and his pain is controlled. Due to his pancytopenia, an oncology consultation has been placed also. OBJECTIVE: VITAL SIGNS: Temperature 97.6, heart rate 78, blood pressure 113/67, respirations 18, oxygen saturation 93% on room air. GENERAL: The patient is resting comfortably in bed. He is sitting on the side working with therapist at the time of our visit. He appeared in no distress. He was awake, conversant, appropriate. Aleks Coma Scale is 15. HEENT: Unremarkable. RESPIRATIONS: Nonlabored. ABDOMEN: Nondistended. EXTREMITIES: Neurovascularly intact x4. Postop dressing was clean, dry, and intact. LABORATORY FINDINGS: White blood cell count 3.9, hemoglobin 7.8, hematocrit 23.1, and platelets 50. Sodium 144, potassium 4.0, chloride 114, CO2 of 20, BUN 34, creatinine 1.21, glucose 211, magnesium 2.1, phosphorus 3.5. There are no radiographs to review this morning. ASSESSMENT AND PLAN: 1. Status post fall from standing. 2. Status post open reduction and internal fixation of left femoral neck fracture. 3. Acute kidney injury, resolved. 4. Pancytopenia, awaiting Oncology. 5. History of multiple comorbidities. PLAN: Continue supportive care. Encourage physical and occupational therapy. Repeat labs in the morning. The patient was evaluated this morning with Dr. Coker. Job ID: [id number]
--- NOTE | 2020-12-07 18:33 | CON ---
DATE OF CONSULTATION: REASON FOR CONSULT: Pancytopenia. HISTORY OF PRESENT ILLNESS: Mr. Angelo is a pleasant 84-year-old gentleman with a complicated medical history, who was admitted after a fall and underwent an open reduction and internal fixation of his left femoral neck fracture. On admission, he was noted to be pancytopenic with a white count of 1.2, hemoglobin of 8.5, and platelet count of 30,000. He had 31% neutrophils, 35% lymphocytes, and 16% monocytes on differential. He had 12% bands with 2% metamyelocytes. Over the course of the stay, his white count has improved to 3.9, platelets have been stable around 50. The patient has a history of cirrhosis with portal hypertension. He is followed by Dr. Hayes. He takes Rifaximin for hepatic encephalopathy. On this admission, both his Hgb and platelets are lower than his baseline. He denies any episodes of bleeding except recently where he had a nosebleed. He went to the ER, but by the time he was seen, it had spontaneously stopped, so he left. He is resting comfortably at bedside. No complaints at this time. No petechiae, purpura, or rash. PAST MEDICAL HISTORY: 1. History of bladder cancer in 2004. 2. Arthritis. 3. Cirrhosis. 4. Coronary artery disease. 5. Diabetes mellitus. 6. Gallstones. 7. Severe mitral valve and tricuspid valve regurg and systolic heart failure. 8. Chronic pancreatitis. 9. COPD. PAST SURGICAL HISTORY: CABG, shoulder repair, cystectomy, prostatectomy, laparoscopic cholecystectomy, pacemaker placement, and multiple colonoscopies. ALLERGIES: NO KNOWN DRUG ALLERGIES. CURRENT MEDICATIONS: 1. Lipitor. 2. Coreg. 3. Flexeril. 4. Insulin. 5. Iron. 6. Xarelto. 7. MiraLAX. 8. Zofran. 9. Senokot. 10. Ultram. FAMILY HISTORY: His mother had a history of breast cancer. SOCIAL HISTORY: . No alcohol, tobacco, or illicit drug use. REVIEW OF SYSTEMS: A 10-point review of systems is negative except for noted in HPI. PHYSICAL EXAMINATION: VITAL SIGNS: Temperature is 98, pulse is 73, respiratory rate 18, BP is 97/60. He is 93% on room air. GENERAL: A well-developed, well-nourished male, in no acute distress. HEENT: Normocephalic, atraumatic. Pupils are equal and reactive to light. NECK: Supple. CV: Regular rate and rhythm. He does have a murmur. LUNGS: Clear anterior. ABDOMEN: Soft. NEUROLOGICAL: Nonfocal. PERTINENT LABORATORY DATA AND X-RAYS: WBCs 3.9, hemoglobin 7.8, hematocrit 23.1, platelet count 50,000, 47% neutrophils, 26% bands, 7% lymphocytes, 20% monocytes. PT 17, INR is 1.4, PTT 35.5. Sodium 144, potassium 4, chloride 114, CO2 is 20, BUN is 34, creatinine 1.21, calcium 8.1, phosphorus 3.5, magnesium 2.1. Bilirubin 1, AST is 26, ALT is 22, alkaline phosphatase is 103. Serum total protein is 6.4, albumin 3.7, globulin 2.7. B12 is 462, folate 1660. COVID PCR negative. ASSESSMENT: 1. Leukopenia, new. 2. History of liver cirrhosis with portal hypertension. 3. 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 Recent fall, status post femoral head repair. DISCUSSION: The patient states that he had a workup at the [facility] approximately a week ago and received "six pages of documents." The workup was regarding his blood count and liver disease. He denies any frequent infections, recent chills or fevers. No bleeding except for the recent nosebleed. His counts are multifactorial, certainly can be from cirrhosis, portal hypertension, likely sequestration in the spleen. His low WBC is new but has been improving daily. No plan for further inpatient workup at this time. He agrees to follow up in the clinic with us to further evaluate his counts if his WBC remain low. I did discuss with Dr. Stewart. Recommend transfusion for hemoglobin for less than 7 and platelets less than 15. Otherwise, continue to monitor. I have provided him clinic information and he was instructed to call for appointment once he is out of rehab. Thank you for the consult. Job ID: [id number]
[2020-12-07] MEDS ORDERED: Atorvastatin Calcium 10 MG TAB PO SCH (21:00)
[2020-12-08] MEDS: Senokot S 8.6-50 MG TAB PO SCH ×3 (00:12→20:48)
[2020-12-08] MEDS: Acetaminophen 325 MG TAB PO SCH ×4 (00:13→18:00)
[2020-12-08] MEDS: Insulin Regular 300 UNITS/3 ML VIAL SC PRN ×4 (05:18→21:46)
[2020-12-08 06:21] LABS: Band 11 % (5-11); Hemoglobin 6.5 g/dL (14.0-18.0); Lymphocytes 13 % (21-51); MDiff Complete? YES; Mean Corpuscular HGB CONC 33.1 g/dL (32.0-36.0); Mean Corpuscular Hemoglobin 36.5 pg (27.0-31.0); Mean Platelet Volume 10.2 fL (7.4-10.4); Monocytes 22 % (0-10); Neutrophil 54 % (42-75); Platelet Count 41 thou/uL (130-400); Platelet Morphology Comment Appears Decreased; RBC Distribution Width 14.8 % (11.5-14.5); Red Blood Cell (RBC) Count 1.79 mill/uL (4.70-6.10); White Blood Cell (WBC) Count 5.9 thou/uL (4.8-10.8)
[2020-12-08] MEDS: Polyethylene Glycol 3350 17 GM Packet PO SCH (08:44)
[2020-12-08] MEDS: Carvedilol 6.25 MG TAB PO SCH ×2 (08:44→18:00)
[2020-12-08 17:05] LABS: Glucose 238 mg/dL (83-110)
[2020-12-08] MEDS: Pancrelipase DR 12,000 1 CAP PO SCH (20:48)
[2020-12-08 21:27] LABS: Glucose 258 mg/dL (83-110)
[2020-12-09] MEDS: Acetaminophen 325 MG TAB PO SCH ×4 (00:26→16:58)
[2020-12-09] MEDS ORDERED: Levothyroxine Sodium 112 MCG TAB PO SCH (06:00)
[2020-12-09 06:28] LABS: Glucose 132 mg/dL (83-110)
[2020-12-09 06:42] LABS: Band 7 % (5-11); Eosinophils 2 % (0-10); Hemoglobin 8.4 g/dL (14.0-18.0); Hypochromia SLIGHT = 6-15 cells (100X) (0-5/hpf); Lymphocytes 15 % (21-51); MDiff Complete? YES; Macrocytosis SLIGHT = 6-15 cells (100X) (0-5/hpf); Mean Corpuscular HGB CONC 34.7 g/dL (32.0-36.0); Mean Corpuscular Hemoglobin 35.8 pg (27.0-31.0); Mean Platelet Volume 10.5 fL (7.4-10.4); Monocytes 23 % (0-10); Neutrophil 53 % (42-75); Nucleated RBC 1 % (0); Platelet Count 36 thou/uL (130-400); Platelet Morphology Comment Appears Decreased; RBC Distribution Width 17.3 % (11.5-14.5); Red Blood Cell (RBC) Count 2.34 mill/uL (4.70-6.10); White Blood Cell (WBC) Count 4.5 thou/uL (4.8-10.8)
[2020-12-09] MEDS: Senokot S 8.6-50 MG TAB PO SCH ×2 (08:40→19:52)
[2020-12-09] MEDS: Pancrelipase DR 12,000 1 CAP PO SCH ×2 (08:41→19:42)
[2020-12-09] MEDS: Carvedilol 6.25 MG TAB PO SCH ×2 (08:41→17:00)
[2020-12-09] MEDS: Polyethylene Glycol 3350 17 GM Packet PO SCH (08:41)
[2020-12-09] MEDS ORDERED: Torsemide 20 MG TAB PO SCH (09:00)
[2020-12-09] MEDS: Insulin Regular 300 UNITS/3 ML VIAL SC PRN ×2 (11:36→17:00)
[2020-12-09 16:23] VITALS: TEMP 98
[2020-12-09 19:23] VITALS: BP 123/68
[2020-12-09] MEDS ORDERED: Atorvastatin Calcium 10 MG TAB PO SCH (21:00)
--- NOTE | 2020-12-09 22:14 | DIS ---
DATE OF ADMISSION: 12/06/2020 DATE OF DISCHARGE: 12/09/2020 ADMISSION DIAGNOSES: 1. Status post fall from standing. 2. Left femoral neck fracture. 3. Acute kidney injury. 4. History of pacemaker and AICD, coronary artery bypass graft, ischemic cardiomyopathy, systolic heart failure, severe mitral valve regurgitation and tricuspid valve regurgitation, coronary artery disease, hypertension, chronic obstructive pulmonary disease, diabetes, gastroesophageal reflux disease, hypothyroidism, bladder cancer, liver cirrhosis, psoriasis, and chronic pancreatitis. 5. Pancytopenia. CONSULTATIONS: 1. Orthopedics, Dr. Sood. 2. Oncology, Dr. Stewart. 3. Cardiology, Dr. Dennis. PROCEDURES: Left hip hemiarthroplasty. SUMMARY: The patient is an 84-year-old man, who presented to the emergency department after having a ground level fall. The patient sustained the above injuries and brought into the hospital for orthopedic evaluation. Due to the patient's extensive comorbidities, he was evaluated by Cardiology, who cleared him for surgery, who was also noted his pancytopenia on admission. Postoperatively, the patient was evaluated by Oncology, and they will follow him up as an outpatient to evaluate his pancytopenia. The patient was given platelets intraoperatively and received 2 units of packed red blood cells during his hospital stay postoperatively. At the time of discharge, the patient was progressing with physical and occupational therapy, he was tolerating a diet, his pain was controlled, his [place] Coma Scale was 15, he was voiding without difficulty, and his bowel function had returned. The patient will follow up with Dr. Sood in 2 weeks. He will call to schedule appointment with Dr. Stewart. He will follow up with his electronics test engineer and may follow up with the [facility] if needed. The patient was discharged to inpatient rehab. Job ID: [id number]
== END 2020-12-09 20:04 | DRG 522 ==
LOC: ERS 23:01 → SURG A 12-06 00:22
PROVIDERS: ADMIT Specialist; ATTEND Specialist
PROC: 0SRS0JA Replacement of Left Hip Joint, Femoral Surface with Synthetic Substitute, Uncemented, Open Approach (ICD-10-PCS; principal; 2020-12-06)
PROC: 30233R1 Transfusion of Nonautologous Platelets into Peripheral Vein, Percutaneous Approach (ICD-10-PCS; 2020-12-06)
PROC: 30233N1 Transfusion of Nonautologous Red Blood Cells into Peripheral Vein, Percutaneous Approach (ICD-10-PCS; 2020-12-08)
DX: S72.002A Fracture of unspecified part of neck of left femur, initial encounter for closed fracture (principal); N17.9 Acute kidney failure, unspecified; I50.22 Chronic systolic (congestive) heart failure; K86.1 Other chronic pancreatitis; D61.818 Other pancytopenia; K76.6 Portal hypertension; Z20.822 Contact with and (suspected) exposure to COVID-19; I25.5 Ischemic cardiomyopathy; I08.1 Rheumatic disorders of both mitral and tricuspid valves; E03.9 Hypothyroidism, unspecified; I11.0 Hypertensive heart disease with heart failure; I25.10 Atherosclerotic heart disease of native coronary artery without angina pectoris; L40.9 Psoriasis, unspecified; J44.9 Chronic obstructive pulmonary disease, unspecified; K74.60 Unspecified cirrhosis of liver; Z96.612 Presence of left artificial shoulder joint; Z96.611 Presence of right artificial shoulder joint; K72.90 Hepatic failure, unspecified without coma; W18.30XA Fall on same level, unspecified, initial encounter; Y92.009 Unspecified place in unspecified non-institutional (private) residence as the place of occurrence of the external cause; Z95.810 Presence of automatic (implantable) cardiac defibrillator; Z87.891 Personal history of nicotine dependence; Z95.1 Presence of aortocoronary bypass graft; Z85.51 Personal history of malignant neoplasm of bladder; Z79.899 Other long term (current) drug therapy; Z79.82 Long term (current) use of aspirin; Z79.890 Hormone replacement therapy; Z79.51 Long term (current) use of inhaled steroids
CPT/HCPCS: 36415; 36416; 36430; 70450; 71045; 72170; 80048; 80053; 82607; 82746; 82947; 83735; 84100; 85007; 85025; 85027; 85060; 85610; 85730; 86850; 86900; 86901; 87635; 93005; 93306; 94760; 96374; 96375; C1776; J0690; J1100; J1200; J1815; J1885; J2270; J2405; J2704; J3010; J3475; P9016; P9035; S0028; U0003

== ENCOUNTER 2020-12-22 18:14 | Inpatient (IN) | payer MEDICARE, BC ==
[~2020-12-22 18:14] MED LIST changes: +Iopamidol-370 76% 500 ML 1 ML ONE; +PROPOFOL 200 MG/20 ML VIAL ONE; +Rocuronium Bromide 10 MG/ML (10ML VIAL) ONE; -Sodium Chloride 0.9% 15 ML NEB ONE; +Succinylcholine 200 MG/10 ml SYRINGE FS ONE
--- NOTE | 2020-12-22 19:13 | RAD ---
Chest one view HISTORY: Dyspnea. COVID positive. COMPARISON: 12/15/2020. FINDINGS: Cardiac silhouette is magnified and enlarged. Pulmonary vasculature upper limits of normal and accentuated by shallow inspiration. Mediastinum is midline with postoperative changes, aortic calcification, and a dual lead left subclav jason cardiac electronic device. Subtle patchy groundglass infiltrates now project over each lower lobe and right upper lobe. No evidence of pneumothorax. Bilateral shoulder prostheses. Old right rib fractures. IMPRESSION : New Multifocal infiltrates. Correlate for COVID pneumonitis. Other findings are stable.
[2020-12-22 19:17] LABS: Hemoglobin 8.9 g/dL (14.0-18.0); Mean Corpuscular HGB CONC 32.8 g/dL (32.0-36.0); Mean Corpuscular Hemoglobin 34.7 pg (27.0-31.0); Platelet Count 49 thou/uL (130-400); RBC Distribution Width 16.9 % (11.5-14.5); Red Blood Cell (RBC) Count 2.56 mill/uL (4.70-6.10); White Blood Cell (WBC) Count 3.5 thou/uL (4.8-10.8)
[2020-12-22] MEDS ORDERED: Albuterol 200 PUFF (6.7GM INHALER) ONE (19:17)
[2020-12-22 19:36] LABS: Anisocytosis SLIGHT = 6-15 cells (100X) (0-5/hpf); Band 10 % (5-11); Lymphocytes 12 % (21-51); MDiff Complete? YES; Macrocytosis SLIGHT = 6-15 cells (100X) (0-5/hpf); Monocytes 58 % (0-10); Myelocyte 1 % (0-0); Neutrophil 18 % (42-75); Platelet Morphology Comment Appears Decreased; Polychromasia SLIGHT = 2-3 cells (100X) (0-2/hpf); Reactive Lymphocytes 1 % (0-10)
[2020-12-22 19:43] LABS: ALT (SGPT) 10 U/L (8-55); AST (SGOT) 28 U/L (5-34); Albumin 3.1 g/dL (3.4-4.8); Alkaline Phosphatase 95 U/L (40-110); Anion Gap 16 mmol/L (10-20); BUN (Urea Nitrogen) 39 mg/dL (8.4-25.7); Bilirubin, Total 1.8 mg/dL (0.2-1.2); Calc. Creatinine Clearance 0 mL/min (70-130); Calcium 8.6 mg/dL (7.8-10.44); Carbon Dioxide 24 mmol/L (23-31); Chloride 104 mmol/L (98-107); Glucose 180 mg/dL (83-110); Potassium 3.9 mmol/L (3.5-5.1); Protein, Total 6.1 g/dL (5.8-8.1); Sodium 140 mmol/L (136-145)
[2020-12-22 20:05] LABS: CKMB 2.2 ng/mL (0-6.6)
--- NOTE | 2020-12-22 20:52 | CT ---
CT arteriogram chest with IV contrast and 3-D imaging HISTORY: Dyspnea. Chest pain. COMPARISON: 06/02/2019. FINDINGS: There is good contrast opacification pulmonary arteries. Aorta not yet opacified. Normal br anching of the great vessels. Heart is enlarged. No mediastinal adenopathy. Minimal left pleural fluid. Prominent patchy areas of groundglass infiltrate and interstitial thicken ing. No pneumothorax. Right lower lobe nodule described on prior studies is obscured by the infiltrates. No dominant mass. Postoperative changes mediastinum. Calcification throughout the arterial structures. Gallbladder surgically absent. Pancreatic abnormality described on prior studies is not visible on this exam. Tiny nonobstructing ca lculus noted at the superior pole right kidney. IMPRESSION : No evidence of pulmonary embolus. Prominent bilateral infiltrates of COVID pneumonitis.
[2020-12-22 22:40] LABS: Troponin I 0.051 ng/mL (< 0.028)
--- NOTE | 2020-12-23 00:30 | PDOC.HHP ---
Hospitalist HPI - History of Present Illness SOB History of Present Illness: This is an 85-year-old male patient with a history of bladder cancer, carotid artery disease, heart failure with AICD, diabetes mellitus, hypothyroidism who presents with worsening cough and dyspnea for evaluation. Oxygen saturation was around 79 and he tested positive for Covid. Of note patient was recently admitted for femoral neck fracture after a fall and had left hip hemiarthroplasty prior to discharge. He was discharged on 12/09/2020 and went to rehab. For rehab he had a cough however for the past couple of days has had worsening shortness of breath for which he was brought to the ED for further evaluation his oxygen saturation was noted to be around 79%. At presentation here saturation was 93 on 4 L, BP was 98/60, heart rate 67, respiratory rate 24 and temperature was 97.7. He denies any associated chills or fevers however had mild diarrhea. His labs showed mild leukopenia of 3.5, anemia of 8.9 and thrombocytopenia of 49 which is around his baseline. Chemistry showed normal renal function. He had troponin elevated 0.054, EKG showed atrial fibrillation with no RVR. Repeat Metro ventricular complexes however no concerning ST or T wave changes. Chest x-ray showed new multifocal infiltrates consistent with Covid. CTA also revealed no pulmonary embolism however was also consistent with Covid pneumon itis. Patient was given breathing treatment Hospitalist team consulted for admission. Hospitalist ROS - Review of Systems Constitutional: reports: weakness, malaise. denies: fever, chills, sweats Respiratory: reports: cough, shortness of breath, SOB with excertion. denies: hemoptysis Gastrointestinal: reports: diarrhea. denies: nausea, vomiting, constipation Genitourinary: denies: dysuria, frequency, incontinence Neurological: denies: weakness, numbness, incoordination All other systems reviewed; all pertinent +/- noted in HPI/Subj - Medication Medications: Medications: Refer to ambulatory list. Allergies: No known drug allergies Hospitalist History - Past Medical History Other Medical History: bladder cancer, carotid artery disease, heart failure with AICD, diabetes mellitus, hypothyroidism - Past Surgical History Other Surgical History: AICD placement, bilateral shoulder surgery. - Family History Family History: reports: no pertinent history - Social History Smoking Status: Never smoker Alcohol: reports: None - Exam General Appearance: awake alert General - other findings: Mild respiratory distress Eye: PERRL, anicteric sclera Hospitalist Results - Labs Result Diagrams: 12/23/20 04:59 12/23/20 04:59 Lab results: WBC 3.5 thou/uL (4.8-10.8) L 12/22/20 18:30 Hgb 8.9 g/dL (14.0-18.0) L 12/22/20 18:30 Hct 27.1 % (42.0-52.0) L 12/22/20 18:30 MCV 106.0 fL (78.0-98.0) H 12/22/20 18:30 Plt Count 49 thou/uL (130-400) L 12/22/20 18:30 Band Neuts % (Manual) 10 % (5-11) 12/22/20 18:30 Sodium 140 mmol/L (136-145) 12/22/20 18:30 Potassium 3.9 mmol/L (3.5-5.1) 12/22/20 18:30 Chloride 104 mmol/L (98-107) 12/22/20 18:30 Carbon Dioxide 24 mmol/L (23-31) 12/22/20 18:30 BUN 39 mg/dL (8.4-25.7) H 12/22/20 18:30 Creatinine 1.27 mg/dL (0.7-1.3) 12/22/20 18:30 Glucose 180 mg/dL (83-110) H 12/22/20 18:30 Calcium 8.6 mg/dL (7.8-10.44) 12/22/20 18:30 Total Bilirubin 1.8 mg/dL (0.2-1.2) H 12/22/20 18:30 AST 28 U/L (5-34) 12/22/20 18:30 ALT 10 U/L (8-55) 12/22/20 18:30 Alkaline Phosphatase 95 U/L (40-110) 12/22/20 18:30 CK-MB (CK-2) 2.2 ng/mL (0-6.6) 12/22/20 18:30 Troponin I 0.051 ng/mL (< 0.028) H 12/22/20 22:01 Serum Total Protein 6.1 g/dL (5.8-8.1) 12/22/20 18:30 Albumin 3.1 g/dL (3.4-4.8) L 12/22/20 18:30 Hospitalist H&P A/P - Plan Plan: This is an 85-year-old male patient with a history of coronary disease, heart failure status post AICD, pancytopenia, recent left hip fracture status post hemiarthroplasty presenting with worsening cough and shortness of breath and noted to have Covid pneumonia. Acute hypoxic respiratory failure Likely due to Covid pneumonia As needed oxygen Monitorpulmonary consult if deteriorates. Pneumonia due to Covid We will do vitamin C and steroids/zinc Monitor CRP ferritin Consider statin remdesivir/convalescent plasma Recent left hip fracture Currently stable Orthopedic consult if indicated. History of falls Fall precautions Severe thrombocytopenia Has a history of pancytopenia Platelets 48 around baseline Is unclear etiology of his thrombocytopenia We will monitor no transfusion for now Anemia Stable VT prophylaxisSCDs holding Lovenox on account of severe thrombocytopenia, consider restarting later. CODE STATUSfull code
[2020-12-23 01:35] LABS: Troponin I 0.045 ng/mL (< 0.028)
[2020-12-23 05:45] LABS: Anion Gap 14 mmol/L (10-20); BUN (Urea Nitrogen) 38 mg/dL (8.4-25.7); Calc. Creatinine Clearance 51 mL/min (70-130); Calcium 8.3 mg/dL (7.8-10.44); Carbon Dioxide 26 mmol/L (23-31); Chloride 106 mmol/L (98-107); Glucose 165 mg/dL (83-110); Potassium 3.8 mmol/L (3.5-5.1); Sodium 142 mmol/L (136-145)
[2020-12-23 06:43] LABS: Band 3 % (5-11); Hemoglobin 8.7 g/dL (14.0-18.0); Lymphocytes 26 % (21-51); MDiff Complete? YES; Mean Corpuscular HGB CONC 32.5 g/dL (32.0-36.0); Mean Corpuscular Hemoglobin 34.7 pg (27.0-31.0); Mean Platelet Volume 9.7 fL (7.4-10.4); Monocytes 43 % (0-10); Neutrophil 28 % (42-75); Platelet Count 44 thou/uL (130-400); Platelet Morphology Comment Appears Decreased; Red Blood Cell (RBC) Count 2.52 mill/uL (4.70-6.10); White Blood Cell (WBC) Count 2.9 thou/uL (4.8-10.8)
[2020-12-23] MEDS: Ascorbic Acid 500 mg Chewable Tablet PO SCH (07:38)
[2020-12-23] MEDS: Zinc Sulfate 220 MG CAP PO SCH (07:38)
[2020-12-23] MEDS: Cholecalciferol (Vitamin D3) 400 UNITS TAB PO SCH (07:39)
[2020-12-23] MEDS: Dexamethasone 4 mg/ml Vial SLOW IVP SCH (07:39)
[2020-12-23] MEDS ORDERED: Enoxaparin Sodium 40 MG/0.4 ML SYRINGE SC SCH ×2 (09:00)
[2020-12-23] MEDS ORDERED: Dextrose 5% in Water 1,000 ML IV PRN (12:30)
[2020-12-23] MEDS ORDERED: Dextrose 50% Abboject 50 ML SYRINGE IVP PRN (12:30)
--- NOTE | 2020-12-23 13:29 | PDOC.HOSPP ---
- Subjective Encounter Date: 12/23/20 Subjective: Pt c/o SOB and also as per patient performed covid test out pt friday was positive - Objective Vital Signs & Weight: Vital Signs (12 hours) Temp Pulse Resp BP Pulse Ox 12/23/20 12:00 98.1 F 63 16 113/59 L 100 12/23/20 07:50 97.9 F 61 22 H 108/58 L 92 L 12/23/20 03:55 97.6 F 60 20 98/57 L 94 L Weight Weight 164 lb Result Diagrams: 12/23/20 04:59 12/23/20 04:59 Additional Labs: Accuchecks 12/23/20 12/23/20 11:56 05:35 POC Glucose 143 H 147 H Hospitalist ROS - Review of Systems Constitutional: denies: fever Eyes: denies: pain ENT: denies: ear pain Respiratory: reports: cough, shortness of breath, SOB with excertion Cardiovascular: denies: chest pain Gastrointestinal: denies: nausea Musculoskeletal: denies: neck pain Neurological: denies: weakness All other systems reviewed; all pertinent +/- noted in HPI/Subj - Medication Medications: Active Medications Generic Name Dose Route Start Last Admin Trade Name Freq PRN Reason Stop Dose Admin Ascorbic Acid 1,000 mg 12/23/20 09:00 12/23/20 07:38 Ascorbic Acid 500 Mg Chewable Tablet PO 1,000 mg DAILY KO Administration Cholecalciferol 400 units 12/23/20 09:00 12/23/20 07:39 Cholecalciferol (Vitamin D3) 400 Units Tab PO 400 units DAILY KO Administration Dexamethasone 8 mg 12/23/20 09:00 12/23/20 07:39 Dexamethasone 4 Mg/Ml Vial SLOW IVP 8 mg DAILY KO Administration Zinc Sulfate 220 mg 12/23/20 09:00 12/23/20 07:38 Zinc Sulfate 220 Mg Cap PO 220 mg DAILY KO Administration - Exam General Appearance: awake alert Eye: anicteric sclera ENT: normocephalic atraumatic Neck: supple Heart: no murmur Respiratory - other findings: decrease air antry b/l bases Gastrointestinal: soft Extremities: no cyanosis Skin: normal turgor Neurological: cranial nerve grossly intact Musculoskeletal: normal tone Psychiatric: normal affect Hosp A/P - Plan Acute hypoxic respiratory failure Likely due to Covid pneumonia as per patient test perforemd last friday posit becky and he was d/sam form rehab CTA neg for PE Continue oxygen Continue steroids Continue incentive spirometry and pron positioning Add convalecent plasma and remdesevir , Risk benifits discussed with pt and he agrees to receive pulmonary consult requested Recent left hip fracture Currently stable Continue prn pain meds and PT evalaution Severe thrombocytopenia Has a history of pancytopenia Will get heparin antibodies Been on lovenox in hospital and rehab Denies active bleeding or bruising Anemia Continue to montior Denies active bleeding VT prophylaxisSCDs CODE STATUSfull code
[2020-12-23 14:51] LABS: SARS-CoV-2 NAA Rapid Test DETECTED (NotDetected)
[2020-12-23] MEDS ORDERED: FLU VACC QS2020-21(65YR UP)/PF 240 MCG/0.7 ML SYRINGE IM ONE (21:00)
[2020-12-23] MEDS: Benzonatate 100 MG CAP PO PRN (22:48)
[2020-12-23] MEDS: HumaLOG 300 UNITS/3 ML VIAL SC PRN (22:50)
[2020-12-24] MEDS: HumaLOG 300 UNITS/3 ML VIAL SC PRN ×3 (06:18→17:04)
[2020-12-24] MEDS: Albuterol 200 PUFF (6.7GM INHALER) INH PRN ×2 (06:19→21:41)
[2020-12-24 06:22] LABS: Anion Gap 17 mmol/L (10-20); BUN (Urea Nitrogen) 40 mg/dL (8.4-25.7); Calc. Creatinine Clearance 51 mL/min (70-130); Calcium 8.2 mg/dL (7.8-10.44); Carbon Dioxide 21 mmol/L (23-31); Chloride 105 mmol/L (98-107); Glucose 251 mg/dL (83-110); Potassium 4.1 mmol/L (3.5-5.1); Sodium 139 mmol/L (136-145)
[2020-12-24 06:28] LABS: Lymphocytes 26 % (21-51); MDiff Complete? YES; Mean Corpuscular HGB CONC 32.7 g/dL (32.0-36.0); Mean Corpuscular Hemoglobin 34.5 pg (27.0-31.0); Mean Platelet Volume 10.3 fL (7.4-10.4); Metamyelocyte 5 % (0-0); Monocytes 16 % (0-10); Myelocyte 3 % (0-0); Neutrophil 50 % (42-75); Platelet Count 53 thou/uL (130-400); Platelet Morphology Comment Appears Decreased; RBC Morphology Normal; Red Blood Cell (RBC) Count 2.62 mill/uL (4.70-6.10); White Blood Cell (WBC) Count 2.7 thou/uL (4.8-10.8)
[2020-12-24] MEDS ORDERED: Dextrose 50% Abboject 50 ML SYRINGE SLOW IVP PRN (07:52)
[2020-12-24] MEDS ORDERED: Dextrose 5% in Water 1,000 ML IV PRN (07:52)
[2020-12-24] MEDS: Cholecalciferol 1,000 UNITS (25 MCG) TAB PO SCH (08:20)
[2020-12-24] MEDS: Carvedilol 6.25 MG TAB PO SCH ×2 (08:20→17:03)
[2020-12-24] MEDS: Pancrelipase DR 12,000 1 CAP PO SCH ×2 (08:21→21:40)
[2020-12-24] MEDS: Lisinopril 5 MG TAB PO SCH (08:21)
[2020-12-24] MEDS: Folic Acid 1 MG TAB PO SCH (08:21)
[2020-12-24] MEDS: Torsemide 20 MG TAB PO SCH (08:21)
[2020-12-24] MEDS: Zinc Sulfate 220 MG CAP PO SCH (08:21)
[2020-12-24] MEDS: Ascorbic Acid 500 mg Chewable Tablet PO SCH (08:21)
[2020-12-24] MEDS: Cholecalciferol (Vitamin D3) 400 UNITS TAB PO SCH (08:21)
[2020-12-24] MEDS: Dexamethasone 4 mg/ml Vial SLOW IVP SCH (08:24)
[2020-12-24] MEDS ORDERED: REMDESIVIR (EUA) 200 MG in Sodium Chloride 0.9% 250 ML 210 ML IV SCH (10:00)
--- NOTE | 2020-12-24 12:32 | PDOC.HOSPP ---
- Subjective Encounter Date: 12/24/20 Subjective: Pt seen says he feels sob but it is same as yesterday Denies nausea vomiting diarrhea fever - Objective Vital Signs & Weight: Vital Signs (12 hours) Temp Pulse Resp BP Pulse Ox 12/24/20 11:15 97.7 F 68 12 128/79 97 12/24/20 08:03 97.4 F L 60 21 H 132/58 L 100 12/24/20 04:13 97.2 F L 64 24 H 130/68 96 12/24/20 02:02 97 Weight Admit Weight 164 lb Weight 164 lb I&O: 12/23/20 12/24/20 12/25/20 06:59 06:59 06:59 Intake Total 960 Balance 960 Result Diagrams: 12/24/20 05:24 12/24/20 05:24 Additional Labs: Accuchecks 12/24/20 12/23/20 12/23/20 11:26 20:35 17:32 POC Glucose 255 H 288 H 202 H Hospitalist ROS - Review of Systems Constitutional: denies: fever Eyes: denies: pain ENT: denies: ear pain Respiratory: reports: cough, shortness of breath, SOB with excertion Cardiovascular: denies: chest pain Gastrointestinal: denies: nausea Musculoskeletal: denies: neck pain Neurological: denies: weakness All other systems reviewed; all pertinent +/- noted in HPI/Subj - Medication Medications: Active Medications Generic Name Dose Route Start Last Admin Trade Name Freq PRN Reason Stop Dose Admin Albuterol Sulfate 2 puff 12/23/20 21:05 12/24/20 06:19 Albuterol 200 Puff (6.7gm Inhaler) INH 2 puff [id number] PRN Administration Wheezing Lipase/Protease/Amylase 1 cap 12/24/20 09:00 12/24/20 08:[address] 12,000 1 Cap PO 1 cap BID KO Administration Ascorbic Acid 1,000 mg 12/23/20 09:00 12/24/20 08:21 Ascorbic Acid 500 Mg Chewable Tablet PO 1,000 mg DAILY KO Administration Benzonatate 100 mg 12/23/20 21:02 12/23/20 22:48 Benzonatate 100 Mg Cap PO 100 mg Q4H PRN Administration Cough Carvedilol 6.25 mg 12/24/20 08:00 12/24/20 08:20 Carvedilol 6.25 Mg Tab PO 6.25 mg BID-WM KO Administration Cholecalciferol 1,000 units 12/24/20 09:00 12/24/20 08:20 Cholecalciferol 1,000 Units (25 Mcg) Tab PO 1,000 units DAILY KO Administration Dexamethasone 8 mg 12/23/20 09:00 12/24/20 08:24 Dexamethasone 4 Mg/Ml Vial SLOW IVP 8 mg DAILY KO Administration Folic Acid 1 mg 12/24/20 09:00 12/24/20 08:21 Folic Acid 1 Mg Tab PO 1 mg DAILY KO Administration Insulin Human Lispro 0 units 12/23/20 12:30 12/24/20 12:06 Humalog 300 Units/3 Ml Vial SC 4 unit .MILD SLIDING SCALE PRN Administration MILD SLIDING SCALE Protocol Insulin Human Lispro 0 units 12/23/20 21:15 12/23/20 22:50 Humalog 300 Units/3 Ml Vial SC 3 unit .BEDTIME SLIDING SC PRN Administration Bedtime Correctional Scale Lactulose 20 gm 12/24/20 09:00 12/24/20 08:24 Lactulose 20 Gm/30 Ml Udcup PO 20 gm DAILY KO Administration Lisinopril 5 mg 12/24/20 09:00 12/24/20 08:21 Lisinopril 5 Mg Tab PO 5 mg DAILY KO Administration Pantoprazole Sodium 40 mg 12/24/20 09:00 12/24/20 08:21 Pantoprazole 40 Mg Tab PO 40 mg QAM KO Administration Torsemide 20 mg 12/24/20 09:00 12/24/20 08:21 Torsemide 20 Mg Tab PO 20 mg DAILY KO Administration Zinc Sulfate 220 mg 12/23/20 09:00 12/24/20 08:21 Zinc Sulfate 220 Mg Cap PO 220 mg DAILY KO Administration - Exam General Appearance: awake alert Eye: anicteric sclera ENT: normocephalic atraumatic Neck: supple Heart: no murmur Respiratory: no wheezes Gastrointestinal: soft Hosp A/P - Plan Acute hypoxic respiratory failure Likely due to Covid 19 pneumonia, as per patient test perforemd last friday was positive and he was d/sam form rehab last CTA neg for PE Continue oxygen and wean as tolerated Continue steroids Continue incentive spirometry and pron positioning s/p convalescent plasma and remdesevir 2/ pulmonary consult requested High D dimer Pt has thrombocytopenia Hematology consulted for evaluation of thrombocytpenia if pt needs anticoagulation Recent left hip fracture Currently stable Continue prn pain meds and PT evalaution Severe thrombocytopenia Has a history of pancytopenia Been on lovenox in hospital and rehab Denies active bleeding or bruising Anemia Continue to montior Denies active bleeding VT prophylaxisSCDs CODE STATUSfull code Discussed with pt and nursing staff
[2020-12-24] MEDS ORDERED: Insulin Glargine 10 UNITS in Pre-Filled Syringe 1 EACH SC SCH ×2 (12:45→13:00)
[2020-12-24] MEDS: Albuterol 200 PUFF (6.7GM INHALER) INH SCH ×2 (14:20→19:07)
[2020-12-24] MEDS: Benzonatate 100 MG CAP PO PRN (15:12)
[2020-12-24] MEDS: Mometasone 100 MCG/Formoterol 5 MCG 120 PUFF INHALER INH SCH (19:07)
[2020-12-24] MEDS: Atorvastatin Calcium 10 MG TAB PO SCH (21:41)
[2020-12-25] MEDS: Benzonatate 100 MG CAP PO PRN ×2 (01:33→05:58)
[2020-12-25] MEDS: Albuterol 200 PUFF (6.7GM INHALER) INH PRN (01:34)
[2020-12-25] MEDS: Albuterol 200 PUFF (6.7GM INHALER) INH SCH ×4 (02:46→18:23)
[2020-12-25] MEDS: Mometasone 100 MCG/Formoterol 5 MCG 120 PUFF INHALER INH SCH ×2 (05:56→18:05)
[2020-12-25] MEDS: Levothyroxine Sodium 112 MCG TAB PO SCH (05:58)
[2020-12-25 06:00] LABS: Fibrinogen 117 mg/dL (253-463)
[2020-12-25 06:21] LABS: Anion Gap 14 mmol/L (10-20); BUN (Urea Nitrogen) 55 mg/dL (8.4-25.7); Calc. Creatinine Clearance 41 mL/min (70-130); Carbon Dioxide 23 mmol/L (23-31); Chloride 105 mmol/L (98-107); Potassium 4.3 mmol/L (3.5-5.1); Sodium 138 mmol/L (136-145)
[2020-12-25 06:22] LABS: CRP (Inflammatory) 4.31 mg/dL (= or < 0.5); Calcium 8.4 mg/dL (7.8-10.44); Glucose 140 mg/dL (83-110)
[2020-12-25 06:36] LABS: Hemoglobin 9.5 g/dL (14.0-18.0); Mean Corpuscular HGB CONC 33.4 g/dL (32.0-36.0); Mean Corpuscular Hemoglobin 35.4 pg (27.0-31.0); Mean Platelet Volume 10.8 fL (7.4-10.4); Platelet Count 28 thou/uL (130-400); White Blood Cell (WBC) Count 6.6 thou/uL (4.8-10.8)
[2020-12-25 06:37] LABS: Band 10 % (5-11); Lymphocytes 9 % (21-51); MDiff Complete? YES; Metamyelocyte 2 % (0-0); Monocytes 26 % (0-10); Neutrophil 53 % (42-75); Platelet Morphology Comment Appears Decreased
[2020-12-25 06:56] LABS: D-Dimer Test Greater than 20.00 *mcg/mL (0.27-0.43)
[2020-12-25] MEDS ORDERED: Non-Formulary Item 1 EACH (Tiotropium [Spiriva Handihaler] 18 MCG Box) INH SCH (07:00)
[2020-12-25] MEDS: Folic Acid 1 MG TAB PO SCH (07:54)
[2020-12-25] MEDS: Carvedilol 6.25 MG TAB PO SCH ×2 (07:54→18:04)
[2020-12-25] MEDS: Lisinopril 5 MG TAB PO SCH (07:54)
[2020-12-25] MEDS: Zinc Sulfate 220 MG CAP PO SCH (07:54)
[2020-12-25] MEDS: Torsemide 20 MG TAB PO SCH (07:54)
[2020-12-25] MEDS: Cholecalciferol 1,000 UNITS (25 MCG) TAB PO SCH (07:55)
[2020-12-25] MEDS: Pancrelipase DR 12,000 1 CAP PO SCH ×2 (07:55→20:44)
[2020-12-25] MEDS: Dexamethasone 4 mg/ml Vial SLOW IVP SCH (07:55)
--- NOTE | 2020-12-25 09:24 | PDOC.HOSPP ---
- Subjective Encounter Date: 12/25/20 Encounter Time: 09:22 Subjective: alert, comfortable on O2 - Objective Vital Signs & Weight: Vital Signs (12 hours) Temp Pulse Resp BP Pulse Ox 12/25/20 05:00 97.6 F 66 16 94 L 12/25/20 01:00 98.0 F 65 18 123/77 97 Weight Admit Weight 164 lb Weight 164 lb I&O: 12/24/20 12/25/20 12/26/20 06:59 06:59 06:59 Intake Total 960 1210 Balance 960 1210 Result Diagrams: 12/25/20 05:03 12/25/20 05:03 Additional Labs: Accuchecks 12/25/20 12/24/20 12/24/20 05:03 21:06 16:12 POC Glucose 137 H 198 H 299 H 12/24/20 12/24/20 11:26 04:09 POC Glucose 255 H 225 H Hospitalist ROS - Medication Medications: Active Medications Generic Name Dose Route Start Last Admin Trade Name Freq PRN Reason Stop Dose Admin Albuterol Sulfate 2 puff 12/23/20 21:05 12/25/20 01:34 Albuterol 200 Puff (6.7gm Inhaler) INH 2 puff [id number] PRN Administration Wheezing Albuterol Sulfate 2 puff 12/24/20 13:00 12/25/20 05:58 Albuterol 200 Puff (6.7gm Inhaler) INH 2 puff [id number] Administration Lipase/Protease/Amylase 1 cap 12/24/20 09:00 12/25/20 07:[address] 12,000 1 Cap PO 1 cap BID KO Administration Ascorbic Acid 1,000 mg 12/23/20 09:00 12/24/20 08:21 Ascorbic Acid 500 Mg Chewable Tablet PO 1,000 mg DAILY KO Administration Atorvastatin Calcium 10 mg 12/24/20 21:00 12/24/20 21:41 Atorvastatin Calcium 10 Mg Tab PO 10 mg Q2DAYS KO Administration Benzonatate 100 mg 12/23/20 21:02 12/25/20 05:58 Benzonatate 100 Mg Cap PO 100 mg Q4H PRN Administration Cough Carvedilol 6.25 mg 12/24/20 08:00 12/25/20 07:54 Carvedilol 6.25 Mg Tab PO 6.25 mg BID-WM KO Administration Cholecalciferol 1,000 units 12/24/20 09:00 12/25/20 07:55 Cholecalciferol 1,000 Units (25 Mcg) Tab PO 1,000 units DAILY KO Administration Dexamethasone 8 mg 12/23/20 09:00 12/25/20 07:55 Dexamethasone 4 Mg/Ml Vial SLOW IVP 8 mg DAILY KO Administration Folic Acid 1 mg 12/24/20 09:00 12/25/20 07:54 Folic Acid 1 Mg Tab PO 1 mg DAILY KO Administration Insulin Human Lispro 0 units 12/23/20 21:15 12/23/20 22:50 Humalog 300 Units/3 Ml Vial SC 3 unit .BEDTIME SLIDING SC PRN Administration Bedtime Correctional Scale Insulin Human Lispro 0 units 12/24/20 07:52 12/24/20 17:04 Humalog 300 Units/3 Ml Vial SC 9 unit .AGGRESSIVE SLIDING PRN Administration Aggressive Correctional Scale Lactulose 20 gm 12/24/20 09:00 12/25/20 07:55 Lactulose 20 Gm/30 Ml Udcup PO 20 gm DAILY KO Administration Levothyroxine Sodium 112 mcg 12/25/20 06:00 12/25/20 05:58 Levothyroxine Sodium 112 Mcg Tab PO 112 mcg 0600 KO Administration Lisinopril 5 mg 12/24/20 09:00 12/25/20 07:54 Lisinopril 5 Mg Tab PO 5 mg DAILY KO Administration Mometasone Furoate/Formoterol Fumar 2 puff 12/24/20 18:30 12/25/20 05:56 Mometasone 100 Mcg/Formoterol 5 Mcg 120 Puff Inhaler INH 2 puff BID-RT KO Administration Pantoprazole Sodium 40 mg 12/24/20 09:00 12/25/20 07:54 Pantoprazole 40 Mg Tab PO 40 mg QAM KO Administration Sodium Chloride 10 ml 12/24/20 21:00 12/24/20 21:42 Flush - Normal Saline 10 Ml Syringe IVF 10 ml Q12HR KO Administration Torsemide 20 mg 12/24/20 09:00 12/25/20 07:54 Torsemide 20 Mg Tab PO 20 mg DAILY KO Administration Zinc Sulfate 220 mg 12/23/20 09:00 01/25/21 07:54 Zinc Sulfate 220 Mg Cap PO 220 mg DAILY KO Administration - Exam General Appearance: awake alert Neck: no JVD Heart: RRR, no murmur Respiratory - other findings: fine rales and coarse BS bilat Gastrointestinal: soft, non-distended, normal bowel sounds Extremities: no edema Hosp A/P (1) Pneumonia due to COVID-19 virus Code(s): U07.1 - COVID-19; J12.82 - PNEUMONIA DUE TO CORONAVIRUS DISEASE 2019 Status: Acute (2) Acute respiratory failure with hypoxemia Code(s): J96.01 - ACUTE RESPIRATORY FAILURE WITH HYPOXIA Status: Acute (3) Cardiomyopathy Code(s): I42.9 - CARDIOMYOPATHY, UNSPECIFIED Status: Acute Qualifiers: Cardiomyopathy type: unspecified Qualified Code(s): I42.9 - Cardiomyopathy, unspecified (4) Chronic obstructive pulmonary disease Status: Chronic Qualifiers: Emphysema type: unspecified (5) Diabetes mellitus Code(s): E11.9 - TYPE 2 DIABETES MELLITUS WITHOUT COMPLICATIONS Status: Chronic Qualifiers: Diabetes mellitus type: type 2 Diabetes mellitus predatory animal exterminator insulin use: with predatory animal exterminator use Diabetes mellitus complication status: without complication Qualified Code(s): E11.9 - Type 2 diabetes mellitus without complications; Z79.4 - termite control servicer (current) use of insulin (6) Dyslipidemia Code(s): E78.5 - HYPERLIPIDEMIA, UNSPECIFIED Status: Chronic (7) Hypertension Code(s): I10 - ESSENTIAL (PRIMARY) HYPERTENSION Status: Chronic Qualifiers: Hypertension type: essential hypertension Qualified Code(s): I10 - Essential (primary) hypertension (8) Hypothyroid Code(s): E03.9 - HYPOTHYROIDISM, UNSPECIFIED Status: Chronic Qualifiers: Hypothyroidism type: unspecified Qualified Code(s): E03.9 - Hypothyroidism, unspecified - Plan cont remdesivir cont iv decadron cont high flow O2 selected home meds ,avoid lovenox, thrombocytopenia
[2020-12-25] MEDS: REMDESIVIR (EUA) 100 MG in Sodium Chloride 0.9% 250 ML 230 ML IV SCH (11:38)
[2020-12-25] MEDS: Insulin Glargine 10 UNITS in Pre-Filled Syringe 1 EACH SC SCH (11:39)
[2020-12-25] MEDS: Ascorbic Acid 500 mg Chewable Tablet PO SCH (11:39)
--- NOTE | 2020-12-25 13:20 | PQF ---
CLINICAL DOCUMENTATION CLARIFICATION FORM: Dear ACUTE RENAL FAILURE Date: 12-25-20 Please exercise your independent, professional judgment in responding to the clarification form. Clinical indicators are provided on the bottom of this form for your review. Please check appropriate box(es): [ ] Acute Renal Failure (ARF) / Acute Kidney Injury (CHARISSE) [ ] Insignificant Lab Values [ x ] Other diagnosis _ckd 3 [ ] Unable to determine In addition, please specify: Present on Admission (POA): [v ] Yes [ ] No [ ] Unable to determine For continuity of documentation, please document condition throughout progress notes and discharge summary. Thank You. To be completed by CDI/Coding staff for physician review: CLINICAL INDICATORS - SIGNS / SYMPTOMS / LABS / RESULTS AND LOCATION IN MR: GFR: 12-22-20: 54 12-23-20: 61 12-24-20: 61 12-25-20: 48 CREATININE: 12-22-20: 1.27 12-25-20: 1.40 BUN: 12-22-20: 39 12-23-20: 38 12-24-20: 40 12-25-20: 55 RISK FACTORS / RESULTS AND LOCATION IN MR: ER MEDS 12-22-20: PREDNISONE, CEFDINIR MAR: 12-24-20: DEMADEX TREATMENTS / RESULTS AND LOCATION IN MR: MONITORING LABS 12-22-20 TO 12-25-20 National Kid[employer] Guidelines for CKD Staging Stage I Kidney damage with normal or increased GFR GFR > 90 Stage II Kidney damage with mildly decreased GFR GFR 60-89 Stage III Kidney damage with moderately decreased GFR GFR 30-59 Stage IV Kidney damage with severely decreased GFR GFR 16-29 Stage V Kidney failure GFR<15 ESRD End Stage Renal Disease On dialysis Acute Renal Failure/Acute Kidney Failure defined as: Increases in SCr by (>) 0.3 mg/dl within 48 hours OR- Increases in SCr by (>) 1.5 times baseline, known or presumed to have occurred within the prior 7 days OR- Urine volume < 0.5 ml/kg/hour for 6 hours (KDIGO supplement 2012 for RIFLE/MITZI criteria) CDS Signature: Ángela Arora Phone #: [phone] Date: 12-25-20 This is a permanent part of the Medical Record [facility]
[2020-12-25] MEDS: Lorazepam 0.5 MG TAB PO PRN (18:04)
[2020-12-25] MEDS: HumaLOG 300 UNITS/3 ML VIAL SC PRN (18:06)
[2020-12-26] MEDS: Albuterol 200 PUFF (6.7GM INHALER) INH SCH ×4 (01:00→17:37)
[2020-12-26] MEDS: traMADol HCl 50 MG TAB PO PRN ×2 (02:01→09:49)
[2020-12-26] MEDS: Lorazepam 0.5 MG TAB PO PRN ×2 (02:02→09:49)
[2020-12-26] MEDS: Mometasone 100 MCG/Formoterol 5 MCG 120 PUFF INHALER INH SCH ×2 (05:31→17:36)
[2020-12-26] MEDS: Levothyroxine Sodium 112 MCG TAB PO SCH (05:31)
[2020-12-26] MEDS: Pancrelipase DR 12,000 1 CAP PO SCH ×2 (07:21→21:00)
[2020-12-26] MEDS: Torsemide 20 MG TAB PO SCH (07:22)
[2020-12-26] MEDS: Atorvastatin Calcium 10 MG TAB PO SCH ×2 (07:22→21:00)
[2020-12-26] MEDS: Cholecalciferol 1,000 UNITS (25 MCG) TAB PO SCH (07:23)
[2020-12-26] MEDS: Ascorbic Acid 500 mg Chewable Tablet PO SCH (07:23)
[2020-12-26] MEDS: Lisinopril 5 MG TAB PO SCH (07:23)
[2020-12-26] MEDS: Folic Acid 1 MG TAB PO SCH (07:23)
[2020-12-26] MEDS: Dexamethasone 4 mg/ml Vial SLOW IVP SCH ×2 (07:23→19:54)
[2020-12-26] MEDS: Zinc Sulfate 220 MG CAP PO SCH (07:23)
[2020-12-26] MEDS: Carvedilol 6.25 MG TAB PO SCH ×2 (07:24→17:36)
[2020-12-26 09:20] LABS: ALT (SGPT) 9 U/L (8-55); AST (SGOT) 30 U/L (5-34)
[2020-12-26] MEDS: Insulin Glargine 10 UNITS in Pre-Filled Syringe 1 EACH SC SCH (09:48)
[2020-12-26] MEDS: REMDESIVIR (EUA) 100 MG in Sodium Chloride 0.9% 250 ML 230 ML IV SCH (09:49)
--- NOTE | 2020-12-26 11:54 | PDOC.HOSPP ---
- Subjective Encounter Date: 12/26/20 Encounter Time: 11:53 Subjective: anxous, - Objective Vital Signs & Weight: Vital Signs (12 hours) Temp Pulse Resp BP Pulse Ox 12/26/20 07:45 97.6 F 73 22 H 115/69 90 L 12/26/20 06:33 61 135/60 94 L 12/26/20 03:00 97.5 F L 61 20 160/104 H 94 L Weight Admit Weight 164 lb Weight 164 lb I&O: 12/25/20 12/26/20 12/27/20 06:59 06:59 06:59 Intake Total 1210 800 Balance 1210 800 Result Diagrams: 12/25/20 05:03 12/25/20 05:03 Additional Labs: Accuchecks 12/26/20 12/26/20 12/25/20 11:23 06:01 20:46 POC Glucose 138 H 142 H 188 H 12/25/20 18:02 POC Glucose 230 H Hospitalist ROS - Medication Medications: Active Medications Generic Name Dose Route Start Last Admin Trade Name Freq PRN Reason Stop Dose Admin Albuterol Sulfate 2 puff 12/23/20 21:05 12/25/20 01:34 Albuterol 200 Puff (6.7gm Inhaler) INH 2 puff [id number] PRN Administration Wheezing Albuterol Sulfate 2 puff 12/24/20 13:00 12/26/20 06:35 Albuterol 200 Puff (6.7gm Inhaler) INH 2 puff [id number] KO Administration Lipase/Protease/Amylase 1 cap 12/24/20 09:00 12/26/20 07:[address] 12,000 1 Cap PO 1 cap BID KO Administration Ascorbic Acid 1,000 mg 12/23/20 09:00 12/26/20 07:23 Ascorbic Acid 500 Mg Chewable Tablet PO 1,000 mg DAILY KO Administration Atorvastatin Calcium 10 mg 12/24/20 21:00 12/24/20 21:41 Atorvastatin Calcium 10 Mg Tab PO 10 mg Q2DAYS KO Administration Benzonatate 100 mg 12/23/20 21:02 12/25/20 05:58 Benzonatate 100 Mg Cap PO 100 mg Q4H PRN Administration Cough Carvedilol 6.25 mg 12/24/20 08:00 12/26/20 07:24 Carvedilol 6.25 Mg Tab PO 6.25 mg BID-WM KO Administration Cholecalciferol 1,000 units 12/24/20 09:00 12/26/20 07:23 Cholecalciferol 1,000 Units (25 Mcg) Tab PO 1,000 units DAILY KO Administration Dexamethasone 8 mg 12/23/20 09:00 12/26/20 07:23 Dexamethasone 4 Mg/Ml Vial SLOW IVP 8 mg DAILY KO Administration Folic Acid 1 mg 12/24/20 09:00 12/26/20 07:23 Folic Acid 1 Mg Tab PO 1 mg DAILY KO Administration Remdesivir 100 mg/ Sodium 250 mls @ 250 mls/hr 12/25/20 10:00 12/26/20 09:49 Chloride IV 12/28/20 10:59 250 mls 1000 KO Administration Insulin Glargine 10 units/ 0.1 mls @ 0 mls/hr 12/25/20 09:00 12/26/20 09:48 Miscellaneous Medication SC Not Given QAM [facility] Insulin Human Lispro 0 units 12/23/20 21:15 12/23/20 22:50 Humalog 300 Units/3 Ml Vial SC 3 unit .BEDTIME SLIDING SC PRN Administration Bedtime Correctional Scale Insulin Human Lispro 0 units 12/24/20 07:52 12/25/20 18:06 Humalog 300 Units/3 Ml Vial SC 6 unit .AGGRESSIVE SLIDING PRN Administration Aggressive Correctional Scale Lactulose 20 gm 12/24/20 09:00 12/26/20 08:15 Lactulose 20 Gm/30 Ml Udcup PO Not Given DAILY [facility] Levothyroxine Sodium 112 mcg 12/25/20 06:00 12/26/20 05:31 Levothyroxine Sodium 112 Mcg Tab PO 112 mcg 0600 KO Administration Lisinopril 5 mg 12/24/20 09:00 12/26/20 07:23 Lisinopril 5 Mg Tab PO 5 mg DAILY KO Administration Lorazepam 0.5 mg 12/25/20 16:29 12/26/20 09:49 Lorazepam 0.5 Mg Tab PO 0.5 mg Q6H PRN Administration Anxiety Mometasone Furoate/Formoterol Fumar 2 puff 12/24/20 18:30 12/26/20 05:31 Mometasone 100 Mcg/Formoterol 5 Mcg 120 Puff Inhaler INH 2 puff BID-RT KO Administration Pantoprazole Sodium 40 mg 12/24/20 09:00 12/26/20 07:23 Pantoprazole 40 Mg Tab PO 40 mg QAM KO Administration Sodium Chloride 10 ml 12/24/20 21:00 12/26/20 07:24 Flush - Normal Saline 10 Ml Syringe IVF 10 ml Q12HR KO Administration Torsemide 20 mg 12/24/20 09:00 12/26/20 07:22 Torsemide 20 Mg Tab PO 20 mg DAILY KO Administration Tramadol HCl 50 mg 12/24/20 07:53 12/26/20 09:49 Tramadol Hcl 50 Mg Tab PO 50 mg Q6H PRN Administration Moderate Pain (4-6) Zinc Sulfate 220 mg 12/23/20 09:00 12/26/20 07:23 Zinc Sulfate 220 Mg Cap PO 220 mg DAILY KO Administration Hospitalist Exam Vitals: Vital Signs (12 hours) Temp Pulse Resp BP Pulse Ox 12/26/20 07:45 97.6 F 73 22 H 115/69 90 L 12/26/20 06:33 61 135/60 94 L 12/26/20 03:00 97.5 F L 61 20 160/104 H 94 L Weight Admit Weight 164 lb Weight 164 lb Neck: no JVD Heart: RRR, no murmur Respiratory - other findings: bilat fine rales Gastrointestinal: soft, normal bowel sounds Extremities: 1+ LE edema Hosp A/P (1) Pneumonia due to COVID-19 virus Code(s): U07.1 - COVID-19; J12.82 - PNEUMONIA DUE TO CORONAVIRUS DISEASE 2019 Status: Acute (2) Acute respiratory failure with hypoxemia Code(s): J96.01 - ACUTE RESPIRATORY FAILURE WITH HYPOXIA Status: Acute (3) Cardiomyopathy Code(s): I42.9 - CARDIOMYOPATHY, UNSPECIFIED Status: Acute Qualifiers: Cardiomyopathy type: unspecified Qualified Code(s): I42.9 - Cardiomyopathy, unspecified (4) Chronic obstructive pulmonary disease Status: Chronic Qualifiers: Emphysema type: unspecified (5) Diabetes mellitus Code(s): E11.9 - TYPE 2 DIABETES MELLITUS WITHOUT COMPLICATIONS Status: Chronic Qualifiers: Diabetes mellitus type: type 2 Diabetes mellitus ferry terminal agent insulin use: with nursing home use Diabetes mellitus complication status: without complication Qualified Code(s): E11.9 - Type 2 diabetes mellitus without complications; Z79.4 - intermodal dispatcher (current) use of insulin (6) Dyslipidemia Code(s): E78.5 - HYPERLIPIDEMIA, UNSPECIFIED Status: Chronic (7) Hypertension Code(s): I10 - ESSENTIAL (PRIMARY) HYPERTENSION Status: Chronic Qualifiers: Hypertension type: essential hypertension Qualified Code(s): I10 - Essenti al (primary) hypertension (8) Hypothyroid Code(s): E03.9 - HYPOTHYROIDISM, UNSPECIFIED Status: Chronic Qualifiers: Hypothyroidism type: unspecified Qualified Code(s): E03.9 - Hypothyroidism, unspecified - Plan cont remdesivir cont iv decadron cont high flow O2 selected home meds ,avoid lovenox, thrombocytopenia cbc, cmp today, poor intake, iv fluids, dobhoff if no improvement
[2020-12-26] MEDS: Dextrose 5 %-0.45 % NaCl 1,000 ML IV SCH (12:47)
[2020-12-26 13:31] LABS: Hemoglobin 9.8 g/dL (14.0-18.0); Mean Corpuscular HGB CONC 32.8 g/dL (32.0-36.0); Mean Corpuscular Hemoglobin 34.5 pg (27.0-31.0); Mean Platelet Volume 14.5 fL (7.4-10.4); Platelet Count 16 thou/uL (130-400); RBC Distribution Width 17.5 % (11.5-14.5); Red Blood Cell (RBC) Count 2.83 mill/uL (4.70-6.10); White Blood Cell (WBC) Count 14.4 thou/uL (4.8-10.8)
[2020-12-26 13:57] LABS: ALT (SGPT) 9 U/L (8-55); AST (SGOT) 25 U/L (5-34); Albumin 2.6 g/dL (3.4-4.8); Alkaline Phosphatase 160 U/L (40-110); Anion Gap 17 mmol/L (10-20); BUN (Urea Nitrogen) 65 mg/dL (8.4-25.7); Bilirubin, Total 2.3 mg/dL (0.2-1.2); Calc. Creatinine Clearance 37 mL/min (70-130); Calcium 8.3 mg/dL (7.8-10.44); Carbon Dioxide 22 mmol/L (23-31); Chloride 106 mmol/L (98-107); Globulin 2.9 g/dL (2.4-3.5); Glucose 150 mg/dL (83-110); Potassium 4.1 mmol/L (3.5-5.1); Protein, Total 5.5 g/dL (5.8-8.1); Sodium 141 mmol/L (136-145)
[2020-12-26 14:02] LABS: Anisocytosis SLIGHT = 6-15 cells (100X) (0-5/hpf); Band 15 % (5-11); Lymphocytes 1 % (21-51); MDiff Complete? YES; Macrocytosis SLIGHT = 6-15 cells (100X) (0-5/hpf); Monocytes 15 % (0-10); Myelocyte 1 % (0-0); Neutrophil 68 % (42-75); Ovalocytes SLIGHT = 2-5 cells (100X) (0-1/hpf); Platelet Morphology Comment Appears Decreased; Poikilocytosis SLIGHT = 6-15 cells (100X) (0-5/hpf); Polychromasia SLIGHT = 2-3 cells (100X) (0-2/hpf); Schistocytes SLIGHT = 2-5 cells (100X) (0-1/hpf); Tear Drops SLIGHT = 2-5 cells (100X) (0-1/hpf)
--- NOTE | 2020-12-26 14:37 | RAD ---
EXAM: CHEST ONE VIEW HISTORY: Covid 19. Dyspnea. Follow-up evaluation. COMPARISON: 12/22/2020 FINDINGS: Dual lead left subclavian acid device remains place with median sternotomy wires again noted. Cardiac silhouette is enlarged. Parenchymal airspace opacities are seen throughout the right lung with confluent opacity in the right midlung zone. Minimal patchy parenchymal opacities are seen at the lef t lung base. Parenchymal opacities on the right have increased. Postoperative changes each shoulder are again seen. Remote right-sided rib fractures are again seen. No other interval change. IMPRESSION: 1. Worsening parenchymal opacities in a distribution suggesting worsening Covid pneumonia. 2. Cardiomegaly.
[2020-12-26] MEDS: Cefepime 1 GM in Sodium Chloride 0.9% 100 ML IVPB SCH (15:40)
[2020-12-26 16:14] LABS: Heparin-Induced Ab (HITA) 0.066 OD (0.000-0.400)
--- NOTE | 2020-12-26 16:25 | CON ---
DATE OF CONSULTATION: 12/26/2020 HISTORY OF PRESENT ILLNESS: Jack Angelo is an 85-year-old gentleman who was admitted on 12/22/2020. Consulted today on 12/26/2020 regarding his pulmonary status. He has known history of bender positive infection, has been receiving remdesivir. Apparently, he has had convalescent plasma already. His x-ray shows worsening status. He was in the hospital recently following a fracture of left hip. He was in acute rehab, having difficulty breathing with sats dropping. X-ray shows a new right-sided infiltrate. He was tested for a coronavirus serology and was positive. PAST MEDICAL HISTORY: 1. Bladder cancer. 2. Severe thrombocytopenia. 3. Coronary artery disease. 4. Congestive heart failure. 5. Pacemaker. 6. AICD. 7. Diabetes. 8. Hypothyroidism. 9. Reflux. 10. Hyperlipidemia. 11. Hypertension. PREVIOUS SURGERIES: 1. Cholecystectomy. 2. Bladder surgery. 3. AICD. 4. Shoulder surgery. 5. Hip surgery. ALLERGIES: NO ALCOHOL OR TOBACCO ABUSE. MEDICATIONS: Home medicines prior to admission includes: 1. Coreg 6.25. 2. Lipitor 10. 3. Tramadol 50. 4. Demadex 20. 5. Spiriva. 6. Potassium. 7. Omeprazole. 8. Zaroxylyn. 9. Lisinopril. 10. Synthroid. 11. Aspirin. 12. Advair. 13. Cinnamon. 14. Trulicity. 15. Rifaximin. PHYSICAL EXAMINATION: GENERAL: He is on high-flow, at rest appears to be relatively asymptomatic. VITAL SIGNS: His sats are 93% to 94% on high flow, flow rate of 60 and a 90% FiO2. Pulse 80, respiratory rate 20, blood pressure 130/80. CHEST: No wheezing. No crackles. CARDIAC: Normal S1 and S2. No gallops. ABDOMEN: Soft. LABORATORY DATA: His creatinine is elevated at 1.5 and BUN is 65. His white count 14,000, 60 segs, 1 lymphocytes, and platelet count 16,000. Albumin is 2.6. X-ray shows mainly a right-sided infiltrate. CAT scan shows bilateral infiltrates. IMPRESSION: 1. Respiratory failure with bender positive pneumonia. 2. Recent hip fracture. 3. Diabetes. 4. Cardiomyopathy. 5. Hypothyroidism. 6. Bladder cancer. 7. Apparently, cirrhosis of the liver. 8. Chronic pancreatitis. 9. Chronic obstructive pulmonary disease. PLAN: Empiric broad-spectrum antibiotics have been initiated, adjusted for his renal failure. GFR is 44. I have increased the dose of steroids. Otherwise, continue supportive care and PT. Obviously, condition gets worse, he may require transfer to the ICU. Start him on inhaled steroids. BNP is ordered for the morning. TIME SPENT: 70 minutes, 50% in direct patient care. Job ID: [id number]
[2020-12-27] MEDS: Albuterol 200 PUFF (6.7GM INHALER) INH SCH ×4 (01:00→18:23)
[2020-12-27] MEDS: Dextrose 5 %-0.45 % NaCl 1,000 ML IV SCH ×2 (04:14→17:18)
[2020-12-27] MEDS: Cefepime 1 GM in Sodium Chloride 0.9% 100 ML IVPB SCH ×2 (04:21→17:19)
[2020-12-27 04:44] LABS: ALT (SGPT) 10 U/L (8-55); AST (SGOT) 21 U/L (5-34); Albumin 2.7 g/dL (3.4-4.8); Alkaline Phosphatase 164 U/L (40-110); Bilirubin, Direct 1.3 mg/dL (0.1-0.3); Bilirubin, Total 2.3 mg/dL (0.2-1.2); Protein, Total 5.5 g/dL (5.8-8.1)
[2020-12-27] MEDS: traMADol HCl 50 MG TAB PO PRN (04:45)
[2020-12-27] MEDS: Levothyroxine Sodium 112 MCG TAB PO SCH (04:45)
[2020-12-27] MEDS: Lorazepam 0.5 MG TAB PO PRN (04:46)
[2020-12-27] MEDS: Mometasone 100 MCG/Formoterol 5 MCG 120 PUFF INHALER INH SCH (06:02)
[2020-12-27] MEDS: HumaLOG 300 UNITS/3 ML VIAL SC PRN ×4 (06:07→22:11)
[2020-12-27] MEDS: Dexamethasone 4 mg/ml Vial SLOW IVP SCH ×2 (10:08→22:10)
--- NOTE | 2020-12-27 11:05 | PDOC.HOSPP ---
- Subjective Encounter Date: 12/27/20 Encounter Time: 11:05 Subjective: confused , tachypnic - Objective Vital Signs & Weight: Vital Signs (12 hours) Temp Pulse Resp BP Pulse Ox 12/27/20 08:09 97.4 F L 73 20 116/56 L 97 12/27/20 07:58 96 12/27/20 07:43 97.3 F L 76 24 H 117/56 L 96 12/27/20 04:00 96.7 F L 80 20 104/50 L 94 L 12/27/20 00:09 90 L Weight Admit Weight 164 lb Weight 161 lb 9.6 oz I&O: 12/26/20 12/27/20 12/28/20 06:59 06:59 06:59 Intake Total 800 1867 Balance 800 1867 Result Diagrams: 12/26/20 13:15 12/26/20 13:15 Additional Labs: Accuchecks 12/27/20 12/27/20 12/26/20 10:23 06:03 19:34 POC Glucose 247 H 295 H 185 H 12/26/20 12/26/20 15:47 11:23 POC Glucose 163 H 138 H Hospitalist ROS - Medication Medications: Active Medications Generic Name Dose Route Start Last Admin Trade Name Freq PRN Reason Stop Dose Admin Albuterol Sulfate 2 puff 12/23/20 21:05 12/25/20 01:34 Albuterol 200 Puff (6.7gm Inhaler) INH 2 puff [id number] PRN Administration Wheezing Albuterol Sulfate 2 puff 12/24/20 13:00 12/27/20 06:02 Albuterol 200 Puff (6.7gm Inhaler) INH 2 puff [id number] KO Administration Lipase/Protease/Amylase 1 cap 12/24/20 09:00 12/26/20 21:[address] 12,000 1 Cap PO Not Given BID KO Ascorbic Acid 1,000 mg 12/23/20 09:00 12/26/20 07:23 Ascorbic Acid 500 Mg Chewable Tablet PO 1,000 mg DAILY KO Administration Atorvastatin Calcium 10 mg 12/24/20 21:00 12/26/20 21:00 Atorvastatin Calcium 10 Mg Tab PO Not Given Q2DAYS KO Benzonatate 100 mg 12/23/20 21:02 12/25/20 05:58 Benzonatate 100 Mg Cap PO 100 mg Q4H PRN Administration Cough Carvedilol 6.25 mg 12/24/20 08:00 12/26/20 17:36 Carvedilol 6.25 Mg Tab PO Not Given BID-WM KO Cholecalciferol 1,000 units 12/24/20 09:00 12/26/20 07:23 Cholecalciferol 1,000 Units (25 Mcg) Tab PO 1,000 units DAILY KO Administration Dexamethasone 6 mg 12/26/20 21:00 12/27/20 10:08 Dexamethasone 4 Mg/Ml Vial SLOW IVP 6 mg BID KO Administration Folic Acid 1 mg 12/24/20 09:00 12/26/20 07:23 Folic Acid 1 Mg Tab PO 1 mg DAILY KO Administration Remdesivir 100 mg/ Sodium 250 mls @ 250 mls/hr 12/25/20 10:00 12/26/20 09:49 Chloride IV 12/28/20 10:59 250 mls 1000 KO Administration Insulin Glargine 10 units/ 0.1 mls @ 0 mls/hr 12/25/20 09:00 12/26/20 09:48 Miscellaneous Medication SC Not Given QAM KO Dextrose/Sodium Chloride 1,000 mls @ 75 mls/hr 12/26/20 12:00 12/27/20 04:14 D5 1/2 Ns IV 1,000 mls .[id number] KO Administration Cefepime HCl 1 gm/ Sodium 100 mls @ 200 mls/hr 12/26/20 16:00 12/27/20 04:21 Chloride IVPB 100 mls 0400,1600 KO Administration Doxycycline Hyclate 100 mg/ 100 mls @ 100 mls/hr 12/26/20 17:00 12/27/20 04:15 Sodium Chloride IVPB 100 mls 0500,1700 KO Administration Insulin Human Lispro 0 units 12/23/20 21:15 12/23/20 22:50 Humalog 300 Units/3 Ml Vial SC 3 unit .BEDTIME SLIDING SC PRN Administration Bedtime Correctional Scale Insulin Human Lispro 0 units 12/24/20 07:52 12/27/20 06:07 Humalog 300 Units/3 Ml Vial SC 9 unit .AGGRESSIVE SLIDING PRN Administration Aggressive Correctional Scale Lactulose 20 gm 12/24/20 09:00 12/26/20 08:15 Lactulose 20 Gm/30 Ml Udcup PO Not Given DAILY KO Levothyroxine Sodium 112 mcg 12/25/20 06:00 12/27/20 04:45 Levothyroxine Sodium 112 Mcg Tab PO 112 mcg 0600 KO Administration Lisinopril 5 mg 12/24/20 09:00 12/26/20 07:23 Lisinopril 5 Mg Tab PO 5 mg DAILY KO Administration Lorazepam 0.5 mg 12/25/20 16:29 12/27/20 04:46 Lorazepam 0.5 Mg Tab PO 0.5 mg Q6H PRN Administration Anxiety Mometasone Furoate/Formoterol Fumar 2 puff 12/24/20 18:30 12/27/20 06:02 Mometasone 100 Mcg/Formoterol 5 Mcg 120 Puff Inhaler INH 2 puff BID-RT KO Administration Pantoprazole Sodium 40 mg 12/24/20 09:00 12/26/20 07:23 Pantoprazole 40 Mg Tab PO 40 mg QAM KO Administration Sodium Chloride 10 ml 12/24/20 21:00 12/26/20 21:00 Flush - Normal Saline 10 Ml Syringe IVF 10 ml Q12HR KO Administration Torsemide 20 mg 12/24/20 09:00 12/26/20 07:22 Torsemide 20 Mg Tab PO 20 mg DAILY KO Administration Tramadol HCl 50 mg 12/24/20 07:53 12/27/20 04:45 Tramadol Hcl 50 Mg Tab PO 50 mg Q6H PRN Administration Moderate Pain (4-6) Zinc Sulfate 220 mg 12/23/20 09:00 12/26/20 07:23 Zinc Sulfate 220 Mg Cap PO 220 mg DAILY KO Administration Hospitalist Exam Vitals: Vital Signs (12 hours) Temp Pulse Resp BP Pulse Ox 12/27/20 08:09 97.4 F L 73 20 116/56 L 97 12/27/20 07:58 96 12/27/20 07:43 97.3 F L 76 24 H 117/56 L 96 12/27/20 04:00 96.7 F L 80 20 104/50 L 94 L 12/27/20 00:09 90 L Weight Admit Weight 164 lb Weight 161 lb 9.6 oz Neck: no JVD Heart: RRR, no murmur Respiratory - other findings: coarse BS Gastrointestinal: soft, normal bowel sounds Extremities: no edema Hosp A/P (1) Pneumonia due to COVID-19 virus Code(s): U07.1 - COVID-19; J12.82 - PNEUMONIA DUE TO CORONAVIRUS DISEASE 2019 Status: Acute (2) Acute respiratory failure with hypoxemia Code(s): J96.01 - ACUTE RESPIRATORY FAILURE WITH HYPOXIA Status: Acute (3) Cardiomyopathy Code(s): I42.9 - CARDIOMYOPATHY, UNSPECIFIED Status: Acute Qualifiers: Cardiomyopathy type: unspecified Qualified Code(s): I42.9 - Cardiomyopathy, unspecified (4) Chronic obstructive pulmonary disease Status: Chronic Qualifiers: Emphysema type: unspecified (5) Diabetes mellitus Code(s): E11.9 - TYPE 2 DIABETES MELLITUS WITHOUT COMPLICATIONS Status: Chronic Qualifiers: Diabetes mellitus type: type 2 Diabetes mellitus local company intermodal truck driver insulin use: with local company intermodal truck driver use Diabetes mellitus complication status: without complication Qualified Code(s): E11.9 - Type 2 diabetes mellitus without complications; Z79.4 - local company intermodal truck driver (current) use of insulin (6) Dyslipidemia Code(s): E78.5 - HYPERLIPIDEMIA, UNSPECIFIED Status: Chronic (7) Hypertension Code(s): I10 - ESSENTIAL (PRIMARY) HYPERTENSION Status: Chronic Qualifiers: Hypertension type: essential hypertension Qualified Code(s): I10 - Essential (primary) hypertension (8) Hypothyroid Code(s): E03.9 - HYPOTHYROIDISM, UNSPECIFIED Status: Chronic Qualifiers: Hypothyroidism type: unspecified Qualified Code(s): E03.9 - Hypothyroidism, unspecified (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
[2020-12-27] MEDS: Carvedilol 6.25 MG TAB PO SCH (11:19)
[2020-12-27] MEDS: Ascorbic Acid 500 mg Chewable Tablet PO SCH (11:19)
[2020-12-27] MEDS: Cholecalciferol 1,000 UNITS (25 MCG) TAB PO SCH (11:20)
[2020-12-27] MEDS: Insulin Glargine 10 UNITS in Pre-Filled Syringe 1 EACH SC SCH (11:21)
[2020-12-27] MEDS: Folic Acid 1 MG TAB PO SCH (11:21)
[2020-12-27] MEDS: Pancrelipase DR 12,000 1 CAP PO SCH ×2 (11:22→20:40)
[2020-12-27] MEDS: Lisinopril 5 MG TAB PO SCH (11:23)
[2020-12-27] MEDS: REMDESIVIR (EUA) 100 MG in Sodium Chloride 0.9% 250 ML 230 ML IV SCH (11:25)
[2020-12-27] MEDS: Zinc Sulfate 220 MG CAP PO SCH (11:25)
[2020-12-27] MEDS: Torsemide 20 MG TAB PO SCH (11:26)
[2020-12-27 12:09] LABS: Hemoglobin 9.8 g/dL (14.0-18.0); Mean Corpuscular HGB CONC 34.3 g/dL (32.0-36.0); Mean Corpuscular Hemoglobin 36.6 pg (27.0-31.0); Mean Platelet Volume 14.1 fL (7.4-10.4); Platelet Count 16 thou/uL (130-400); RBC Distribution Width 17.7 % (11.5-14.5); Red Blood Cell (RBC) Count 2.67 mill/uL (4.70-6.10); White Blood Cell (WBC) Count 15.6 thou/uL (4.8-10.8)
[2020-12-27 12:32] LABS: Anisocytosis MODERATE=16-30 cells (100X) (0-5/hpf); Band 15 % (5-11); Hypochromia SLIGHT = 6-15 cells (100X) (0-5/hpf); Lymphocytes 4 % (21-51); MDiff Complete? YES; Metamyelocyte 2 % (0-0); Monocytes 18 % (0-10); Myelocyte 1 % (0-0); Neutrophil 59 % (42-75); Nucleated RBC 2 % (0); Platelet Morphology Comment Appears Decreased; Polychromasia MODERATE = 3-4 cells (100X) (0-2/hpf); Reactive Lymphocytes 1 % (0-10); Schistocytes MODERATE= 6-15 cells (100X) (0-1/hpf)
--- NOTE | 2020-12-27 13:36 | PRG ---
DATE OF SERVICE: 12/27/2020 SUBJECTIVE: Jack Angelo remains tachypneic and confused. OBJECTIVE: VITAL SIGNS: His FiO2 is 60%. His sats are in the high 90s. He is afebrile. Heart rates in the 70s, blood pressure 116/56. LUNGS: Unchanged. HEART: Unchanged. ABDOMEN: Unchanged. IMPRESSION: Respiratory insufficiency associated with COVID pneumonia. gas exchange issue that would lead me to believe that he needs intubation. It is more of him having advanced age and muscle weakness combined with confusion. In my opinion, he would benefit from intubation if he has any chance to survive this. He will be transferred to critical care unit for intubation. CRITICAL CARE TIME: 30 minutes. Job ID: [id number]
[2020-12-27] MEDS ORDERED: Propofol 1,000 MG/100 ML VIAL IV ONE (14:05)
[2020-12-27] MEDS ORDERED: PHENYLEPHRINE-NS 100 MCG/ML 10 ML SYRINGE ONE (14:17)
[2020-12-27] MEDS ORDERED: ePHEDrine 50 MG/ML VIAL ONE (14:17)
--- NOTE | 2020-12-27 14:42 | RAD ---
Exam: Chest one view HISTORY:Evaluate chest tube placement Comparison: 12/26/2020 FINDINGS: Cardiac silhouette:Stable cardiomegaly Aorta: Elongation aorta Lines and tubes: Redemonstration of endotracheal and nasogastric tube. Pacing device: Stable left-sided defibrillator Pulmonary vessels: Normal Costophrenic angles: Clear LUNGS: Stable masses throughout the lung parenchyma. Pneumothorax: There is a left-sided pneumothorax. Increased lucency left hemithorax with the deep lef t sulcus on this supine projection. Patient is rotated the left resulting in rotation of the sternum and mediastinum. Patient positioning limits evaluation for possible tension pneumothorax. Osseous abnormalities: None IMPRESSION: 1. Left-sided pneumothorax. Patient leftward rotation limits evaluation for possible tension pneumoth orax. Consider repeat portable upright AP chest radiograph. 2. No evidence of a left sided chest tube. Results of the study discussed with [facility] nurse 12/27/2020 at 2:38 PM
[2020-12-27 14:43] LABS: CO2 Tension 32.5 mmHg (35.0-45.0); Calcium, Ionized (arterial) 1.16 mmol/L (1.12-1.30); Carboxyhemoglobin (COHb) 1.2 gm% (0.0-3.0); Hemoglobin (Hb) 9.4 g/dL (14.0-18.0); Potassium - ABG Lab 3.59 mmol/L (3.70-5.30); pH, Arterial 7.41 (7.35-7.45)
[2020-12-27] MEDS ORDERED: Fentanyl CADD 100 ML ONE (14:46)
[2020-12-27 14:58] LABS: ALV-art Gradient 191.475 mmHg (0-20); O2 Tension (PaO2), arterial 53.1 mmHg (> 60.0); Puncture Site RRA
[2020-12-27] MEDS ORDERED: Ventilator Sedation Protocol 1 EACH FS ONE (16:00)
[2020-12-27] MEDS ORDERED: Vecuronium 10 MG VIAL IV PRN (16:04)
[2020-12-27] MEDS ORDERED: Morphine 2 MG/ML VIAL SLOW IVP PRN (16:15)
[2020-12-27] MEDS ORDERED: DISCONTINUE PREVIOUS NARCOTIC PAIN MEDICATIONS AND BENZODIAZEPINES FS SCH (16:15)
[2020-12-27] MEDS ORDERED: Propofol BOLUS 1,000 MG/100 ML VIAL IV PRN (16:15)
[2020-12-27] MEDS ORDERED: Fentanyl BOLUS 250 ML IVPB PRN (16:15)
[2020-12-27] MEDS ORDERED: Lorazepam 2 MG/ML VIAL SLOW IVP PRN (16:15)
--- NOTE | 2020-12-27 16:25 | RAD ---
EXAM: CHEST ONE VIEW HISTORY: Pneumonia. Follow-up evaluation. COMPARISON: 12/27/2020 at 1421 hours. FINDINGS: Endotracheal tube, nasogastric tube, and left subclavian AICD device remain in place. One of the lead s of the AICD device is again fractured. However, this is unchanged when compared to study on 08/27/2019. Patient rotated to the right which accentuates cardiac silhouette, the cardiac silhouette does appear enlarged. Median sternotomy wires are again present. Parenchymal lung changes are again seen bilaterally in a right perihilar location and at each lung base. No pneumothorax is visualized o n this examination. Pneumothorax was reported on the left on prior exam, and an obvious pneumothorax is not seen on this study. No other interval change. IMPRESSION: 1. Radiographic findings again suggestive of Covid pneumonia. 2. Fractured left AICD lead is again seen. 3. No pneumothorax is visualized.
[2020-12-27] MEDS ORDERED: Albumin 25% 25 GM/100 ML BOT IVPB SCH (20:00)
[2020-12-27] MEDS ORDERED: Sodium Chloride 0.9% 1,000 ML IV SCH (20:00)
[2020-12-27] MEDS ORDERED: Phenylephrine 40 MG in Sodium Chloride 0.9% 250 ML 250 ML IVPB SCH ×2 (20:45→21:00)
[2020-12-27] MEDS ORDERED: Norepinephrine 8 MG/0.9% NS 250 ML ONE (21:07)
[2020-12-28] MEDS: Albuterol 200 PUFF (6.7GM INHALER) INH SCH ×4 (00:16→18:46)
[2020-12-28] MEDS: Cefepime 1 GM in Sodium Chloride 0.9% 100 ML IVPB SCH (03:36)
[2020-12-28 04:01] LABS: Hemoglobin 8.6 g/dL (14.0-18.0); Mean Corpuscular HGB CONC 32.3 g/dL (32.0-36.0); Mean Corpuscular Hemoglobin 33.9 pg (27.0-31.0); Mean Platelet Volume 14.6 fL (7.4-10.4); Platelet Count 13 thou/uL (130-400); Red Blood Cell (RBC) Count 2.52 mill/uL (4.70-6.10); White Blood Cell (WBC) Count 11.7 thou/uL (4.8-10.8)
[2020-12-28 04:02] LABS: PTT 37.5 sec (22.9-36.1)
[2020-12-28 04:19] LABS: ALT (SGPT) 7 U/L (8-55); AST (SGOT) 15 U/L (5-34); Albumin 2.7 g/dL (3.4-4.8); Alkaline Phosphatase 134 U/L (40-110); Anion Gap 15 mmol/L (10-20); BUN (Urea Nitrogen) 74 mg/dL (8.4-25.7); Band 6 % (5-11); Bilirubin, Direct 1.2 mg/dL (0.1-0.3); Bilirubin, Total 2.1 mg/dL (0.2-1.2); Calc. Creatinine Clearance 33 mL/min (70-130); Carbon Dioxide 20 mmol/L (23-31); Chloride 110 mmol/L (98-107); Globulin 2.6 g/dL (2.4-3.5); Glucose 165 mg/dL (83-110); Hypochromia SLIGHT = 6-15 cells (100X) (0-5/hpf); Lymphocytes 16 % (21-51); MDiff Complete? YES; Macrocytosis SLIGHT = 6-15 cells (100X) (0-5/hpf); Monocytes 8 % (0-10); Neutrophil 70 % (42-75); Platelet Morphology Comment Appears Decreased; Potassium 3.9 mmol/L (3.5-5.1); Protein, Total 5.3 g/dL (5.8-8.1); Sodium 141 mmol/L (136-145)
[2020-12-28 04:20] LABS: Prothrombin Time 23.4 sec (12.0-14.7)
[2020-12-28 04:28] LABS: Fibrinogen 61 mg/dL (253-463)
[2020-12-28] MEDS: Levothyroxine Sodium 112 MCG TAB PO SCH (05:57)
[2020-12-28] MEDS: Ascorbic Acid 500 mg Chewable Tablet PO SCH (08:17)
[2020-12-28] MEDS: Zinc Sulfate 220 MG CAP PO SCH (08:17)
[2020-12-28] MEDS: Pancrelipase DR 12,000 1 CAP PO SCH ×2 (08:17→20:26)
[2020-12-28] MEDS: Dexamethasone 4 mg/ml Vial SLOW IVP SCH ×2 (08:18→20:25)
--- NOTE | 2020-12-28 08:23 | PDOC.HOSPP ---
- Subjective Encounter Date: 12/28/20 Encounter Time: 08:16 Subjective: intubated, sedated - Objective Vital Signs & Weight: Vital Signs (12 hours) Temp Pulse Ox 12/28/20 07:51 100 12/28/20 07:25 98 12/28/20 04:00 97.7 F 12/28/20 00:00 97.5 F L Weight Admit Weight 164 lb Weight 161 lb 9.6 oz Most Recent Monitor Data Heart Rate from ECG 79 NIBP 122/52 NIBP BP-Mean 75 Respiration from ECG 22 SpO2 98 I&O: 12/27/20 12/28/20 12/29/20 06:59 06:59 06:59 Intake Total 1867 3611.0 Output Total 200 Balance 1867 3411.0 Result Diagrams: 12/28/20 03:43 12/28/20 03:43 Additional Labs: Accuchecks 12/27/20 12/27/20 12/27/20 21:52 17:30 10:23 POC Glucose 218 H 261 H 247 H Hospitalist ROS - Medication Medications: Active Medications Generic Name Dose Route Start Last Admin Trade Name Freq PRN Reason Stop Dose Admin Albuterol Sulfate 2 puff 12/23/20 21:05 12/25/20 01:34 Albuterol 200 Puff (6.7gm Inhaler) INH 2 puff [id number] PRN Administration Wheezing Albuterol Sulfate 2 puff 12/24/20 13:00 12/28/20 07:33 Albuterol 200 Puff (6.7gm Inhaler) INH 2 puff [id number] KO Administration Lipase/Protease/Amylase 1 cap 12/24/20 09:00 12/27/20 20:[address] 12,000 1 Cap PO Not Given BID KO Ascorbic Acid 1,000 mg 12/23/20 09:00 12/27/20 11:19 Ascorbic Acid 500 Mg Chewable Tablet PO 1,000 mg DAILY KO Administration Dexamethasone 6 mg 12/26/20 21:00 12/27/20 22:10 Dexamethasone 4 Mg/Ml Vial SLOW IVP 6 mg BID KO Administration Remdesivir 100 mg/ Sodium 250 mls @ 250 mls/hr 12/25/20 10:00 12/27/20 11:25 Chloride IV 12/28/20 10:59 250 mls 1000 KO Administration Insulin Glargine 10 units/ 0.1 mls @ 0 mls/hr 12/25/20 09:00 12/27/20 11:21 Miscellaneous Medication SC 0.1 mls QAM KO Administration Dextrose/Sodium Chloride 1,000 mls @ 75 mls/hr 12/26/20 12:00 12/27/20 17:18 D5 1/2 Ns IV 1,000 mls .[id number] KO Administration Cefepime HCl 1 gm/ Sodium 100 mls @ 200 mls/hr 12/26/20 16:00 12/28/20 03:36 Chloride IVPB 100 mls 0400,1600 KO Administration Doxycycline Hyclate 100 mg/ 100 mls @ 100 mls/hr 12/26/20 17:00 12/28/20 04:51 Sodium Chloride IVPB 100 mls 0500,1700 KO Administration Insulin Human Lispro 0 units 12/23/20 21:15 12/27/20 22:11 Humalog 300 Units/3 Ml Vial SC 2 unit .BEDTIME SLIDING SC PRN Administration Bedtime Correctional Scale Insulin Human Lispro 0 units 12/24/20 07:52 12/27/20 17:49 Humalog 300 Units/3 Ml Vial SC 9 unit .AGGRESSIVE SLIDING PRN Administration Aggressive Correctional Scale Lactulose 20 gm 12/24/20 09:00 12/27/20 11:22 Lactulose 20 Gm/30 Ml Udcup PO 20 gm DAILY KO Administration Levothyroxine Sodium 112 mcg 12/25/20 06:00 12/28/20 05:57 Levothyroxine Sodium 112 Mcg Tab PO Not Given 0600 KO Pantoprazole Sodium 40 mg 12/24/20 09:00 12/27/20 11:23 Pantoprazole 40 Mg Tab PO 40 mg QAM KO Administration Sodium Chloride 10 ml 12/24/20 21:00 12/27/20 22:10 Flush - Normal Saline 10 Ml Syringe IVF 10 ml Q12HR KO Administration Zinc Sulfate 220 mg 12/23/20 09:00 12/27/20 11:25 Zinc Sulfate 220 Mg Cap PO 220 mg DAILY KO Administration Hospitalist Exam Vitals: Vital Signs (12 hours) Temp Pulse Ox 12/28/20 07:51 100 12/28/20 07:25 98 12/28/20 04:00 97.7 F 12/28/20 00:00 97.5 F L Weight Admit Weight 164 lb Weight 161 lb 9.6 oz Most Recent Monitor Data Heart Rate from ECG 79 NIBP 122/52 NIBP BP-Mean 75 Respiration from ECG 22 SpO2 98 Neck: no JVD Heart: RRR, no murmur Respiratory - other findings: diffuse rhonchi Gastrointestinal: soft, non-distended, normal bowel sounds Extremities: no edema Hosp A/P (1) Pneumonia due to COVID-19 virus Code(s): U07.1 - COVID-19; J12.82 - PNEUMONIA DUE TO CORONAVIRUS DISEASE 2019 Status: Acute (2) Acute respiratory failure with hypoxemia Code(s): J96.01 - ACUTE RESPIRATORY FAILURE WITH HYPOXIA Status: Acute (3) Cardiomyopathy Code(s): I42.9 - CARDIOMYOPATHY, UNSPECIFIED Status: Acute Qualifiers: Cardiomyopathy type: unspecified Qualified Code(s): I42.9 - Cardiomyopathy, unspecified (4) Chronic obstructive pulmonary disease Status: Chronic Qualifiers: Emphysema type: unspecified (5) Diabetes mellitus Code(s): E11.9 - TYPE 2 DIABETES MELLITUS WITHOUT COMPLICATIONS Status: Chronic Qualifiers: Diabetes mellitus type: type 2 Diabetes mellitus penitentiary insulin use: with penitentiary use Diabetes mellitus complication status: without complication Qualified Code(s): E11.9 - Type 2 diabetes mellitus without complications; 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 (6) Dyslipidemia Code(s): E78.5 - HYPERLIPIDEMIA, UNSPECIFIED Status: Chronic (7) Hypertension Code(s): I10 - ESSENTIAL (PRIMARY) HYPERTENSION Status: Chronic Qualifiers: Hypertension type: essential hypertension Qualified Code(s): I10 - Essential (primary) hypertension (8) Hypothyroid Code(s): E03.9 - HYPOTHYROIDISM, UNSPECIFIED Status: Chronic Qualifiers: Hypothyroidism type: unspecified Qualified Code(s): E03.9 - Hypothyroidism, unspecified (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
[2020-12-28] MEDS: Dextrose 5 %-0.45 % NaCl 1,000 ML IV SCH (09:34)
[2020-12-28] MEDS: Pantoprazole 40 MG GRANULES PACKET PER TUBE SCH (09:35)
[2020-12-28] MEDS: Insulin Glargine 10 UNITS in Pre-Filled Syringe 1 EACH SC SCH (09:35)
[2020-12-28] MEDS: REMDESIVIR (EUA) 100 MG in Sodium Chloride 0.9% 250 ML 230 ML IV SCH (09:54)
[2020-12-28 14:49] VITALS: BMI 22.5
[2020-12-28] MEDS ORDERED: Fentanyl CADD 100 ML ONE (16:11)
[2020-12-28] MEDS: Propofol 1,000 MG/100 ML VIAL IV PRN (16:31)
[2020-12-28] MEDS: Fentanyl CADD 100 ML IV SCH (16:32)
[2020-12-28] MEDS: HumaLOG 300 UNITS/3 ML VIAL SC PRN ×2 (17:10→21:33)
--- NOTE | 2020-12-28 20:45 | PRG ---
DATE OF SERVICE: 12/28/2020 SUBJECTIVE: Hemodynamics are resolved with transient pressors and volume. OBJECTIVE: VITAL SIGNS: Blood pressure 109/51, heart rate 62, respiratory rate 22, oximetry is 100%. LUNGS: Coarse equal breath sounds. HEART: Regular rhythm. ABDOMEN: Soft. EXTREMITIES: Without edema. LABORATORY DATA: White count , hemoglobin 8.6, platelet count dropped to 13,000 today. Sodium 141, potassium 3.9, chloride 110, bicarb 20, BUN 74, creatinine 1.71, glucose 165. IMPRESSION: 1. COVID pneumonia respiratory failure, requiring intubation. 2. Thrombocytopenia. Depending on his lab work, he could eventually be switched to Arixtra on prophylactic doses. Continue with supportive care. FiO2 requirements fortunately have been 50% at the most part since he has been intubated. Critical care time 30 min. Job ID: [id number] MTDD
[2020-12-29] MEDS: Dextrose 5 %-0.45 % NaCl 1,000 ML IV SCH ×2 (00:30→10:54)
[2020-12-29] MEDS: Albuterol 200 PUFF (6.7GM INHALER) INH SCH ×4 (00:35→18:29)
--- NOTE | 2020-12-29 01:29 | CON ---
DATE OF CONSULTATION: 12/28/2020 REASON FOR CONSULTATION: 1. Penny pouch. 2. Acute illness with presumed urinary retention. 3. COVID-19 positive. HISTORY OF PRESENT ILLNESS: Mr. Jack Angelo is an 85-year-old white male, who received a lot of his care in [facility] related facilities in the [facility]. Mr. Angelo has an unfortunate past history of bladder cancer, underwent several transurethral resections of the bladder in 2003 and early 2004. He did undergo a radical cystoprostatectomy with orthotopic Penny pouch apparently in December 2004. The patient is admitted with COVID-19 and is on a ventilator. The patient's additional medical history is significant for cirrhosis of the liver, coronary artery disease status post coronary artery bypass graft, diabetes mellitus, heart failure with an AICD, carotid artery disease, hypothyroidism, and now pulmonary failure, requiring ventilation. The patient is unconscious secondary to sedation and is not able to participate in his own portions of medical history that I have gleaned from the [facility] record and the [facility] record via [facility]. REVIEW OF SYSTEMS: The patient is not able to participate in 12-point review of systems. SOCIAL HISTORY: The patient is a [id number] or more cigarette smoker with related pulmonary disease and history of bladder cancer. He is in senior care and resides in [place]. PAST MEDICAL HISTORY: 1. Bladder cancer status post cystoprostatectomy in 2004. 2. Coronary artery disease status post coronary artery bypass graft in 2003. 3. Carotid artery disease. 4. Heart failure with AICD. 5. Diabetes mellitus. 6. Hypothyroidism. PAST SURGICAL HISTORY: 1. AICD placement. 2. Bilateral shoulder surgery. 3. Coronary artery bypass graft. 4. Orthotopic Penny pouch, urinary diversion with cystoprostatectomy. FAMILY MEDICAL HISTORY: Not pertinent to the patient's current condition. PHYSICAL EXAMINATION: GENERAL: The patient is intubated and sedated at the present time. He is not able to participate in any of his history taking or physical examination. HEAD, EYES, EARS, NOSE, AND THROAT: The patient is intubated. LUNGS: Predominantly clear anteriorly. There are coarse breath sounds associated with an intubated status. The patient is on a ventilator at the present time. CARDIAC: Regular rate and rhythm with occasional PVCs observed on the school lunch monitor. ABDOMEN: Soft and nontender. It is nondistended. There is an infraumbilical surgical incisional scar compatible with patient's known history of exploratory laparotomy and cystoprostatectomy with orthotopic neobladder. EXTREMITIES: There is dusky changes to the patient's bilateral lower extremities. SKIN: The patient's skin color is generally pale. GENITOURINARY: I asked to have the patient's bladder catheterized earlier today and catheter passed without difficulty. He is returning straw-colored urine without significant mucus. VITAL SIGNS: The patient's pulse is 67, respiratory rate currently 22, FiO2 is 50%. The blood pressure is 116/52 with a mean arterial pressure of 73. O2 saturation on current settings is 100%. LABORATORY STUDIES: The patient's white count is 11,700, hemoglobin is 8.6 with hematocrit of 26.5. Serum chemistry showed the patient's chloride at 110, carbon dioxide at 20, blood urea nitrogen is 74 and creatinine at 1.71. The patient's creatinine baseline is around 1.27 as measured on 12/22/2020. It has previously been lower than that around 0.78 in 2016. It has been a gradual rise in the serum creatinine over time and it is worse now than it has ever been. No urine cultures or blood cultures are available for assessment. A CT scan of the chest and thorax was performed on 12/22/2020 and demonstrates no evidence of pulmonary embolus. A CT scan of the patient's abdomen and pelvis was performed on 01/24/2021. This studies notable for the absence of the patient's gallbladder, area of soft tissue contrast enhancement in the expected location of the patient's pancreatic head, measuring 2.6 cm in diameter, favored to represent a residual pancreatic tissue and right adrenal nodule is stable relative to previous imaging studies and cysts of the patient's kidneys are of unchanged appearance. The patient has a right lower pole cyst that potentially is of interest at about 1.4 cm. The patient has a densely calcified lower abdominal aorta, measuring up to 3.5 cm in diameter, stable from previous imaging. ASSESSMENT AND PLAN: 1. Orthotopic neobladder, Penny type. Main concern with this would be multipass metabolism of metabolites from medications, particularly narcotics and related agents utilized for sedation. Due to the absorptive surface of the patient's Penny pouch, resorption of renally excreted pharmaceuticals can occur leading to delirium and accumulation of metabolites in the patient. Drainage of the patient's bladder is recommended for that reason in addition, due to the risk of rupture of the patient's Penny pouch which may occur. Benjamin catheter should be left in place while the patient is ventilated, sedated and not able to void on his own volition. Recommend hand irrigation of the patient's catheter at least daily due to the mucus production due to the orthotopic neobladder being constructed primarily from ileum tissue. 2. Urinary tract infection concerns. I would not recommend culturing the patient's urine, which is completely clear. I would not treat supposed infection from the patient's orthotopic neobladder which is undoubtedly colonized with some type of organism, though it appears clear today. Treatment of the patient's systemic infections are indicated if cultured from blood. 3. Coronavirus disease 2019 status. The patient remains on appropriate droplet and airborne precautions. TIME SPENT WITH PATIENT: Over 80 minutes of initial evaluation, consultation, assessment, coordination care time was spent in assessment of this patient today. Job ID: [id number]
[2020-12-29 04:37] LABS: Hemoglobin 8.7 g/dL (14.0-18.0); Mean Corpuscular HGB CONC 33.3 g/dL (32.0-36.0); Mean Corpuscular Hemoglobin 35.3 pg (27.0-31.0); Mean Platelet Volume 15.7 fL (7.4-10.4); Platelet Count 10 thou/uL (130-400); RBC Distribution Width 18.1 % (11.5-14.5); Red Blood Cell (RBC) Count 2.46 mill/uL (4.70-6.10); White Blood Cell (WBC) Count 9.2 thou/uL (4.8-10.8)
[2020-12-29 04:40] LABS: Anion Gap 14 mmol/L (10-20); Anisocytosis SLIGHT = 6-15 cells (100X) (0-5/hpf); BUN (Urea Nitrogen) 81 mg/dL (8.4-25.7); Band 9 % (5-11); Calc. Creatinine Clearance 30 mL/min (70-130); Calcium 8.1 mg/dL (7.8-10.44); Carbon Dioxide 19 mmol/L (23-31); Chloride 112 mmol/L (98-107); Glucose 319 mg/dL (83-110); Lymphocytes 1 % (21-51); MDiff Complete? YES; Macrocytosis SLIGHT = 6-15 cells (100X) (0-5/hpf); Monocytes 10 % (0-10); Myelocyte 3 % (0-0); Neutrophil 77 % (42-75); Nucleated RBC 1 % (0); Platelet Morphology Comment Appears Decreased; Schistocytes SLIGHT = 2-5 cells (100X) (0-1/hpf); Sodium 141 mmol/L (136-145)
[2020-12-29] MEDS: Levothyroxine Sodium 112 MCG TAB PO SCH (05:14)
[2020-12-29] MEDS: HumaLOG 300 UNITS/3 ML VIAL SC PRN ×3 (05:27→21:01)
[2020-12-29] MEDS ORDERED: Cefepime 1 GM in Sodium Chloride 0.9% 100 ML IVPB SCH (09:00)
--- NOTE | 2020-12-29 09:30 | PRG ---
DATE OF SERVICE: 12/29/2020 This is a 35 minutes critical care time. SUBJECTIVE: The patient remains intubated on mechanical ventilation. OBJECTIVE: VITAL SIGNS: Temperature is 98.5, pulse 61, blood pressure 117/52. He is currently on a small amount of Levophed, but not through a central line because of severe thrombocytopenia. HEENT: Exam is unremarkable. NECK: No JVD. LUNGS: Clear breath sounds. CARDIAC: S1, S2. Regular. ABDOMEN: Soft. EXTREMITIES: No edema. LABORATORY DATA: White blood cell count 9.2, hematocrit 26.1, and platelet count 10. Sodium 141, potassium 4, chloride 112, CO2 of 19, BUN 81, creatinine 1.4, glucose 319. Chest x-ray shows diffuse bilateral infiltrates. ASSESSMENT: 1. COVID-19 pneumonia with respiratory failure requiring mechanical ventilation. He is currently on bilevel ventilation with a rate of 22, high pressure 21, low pressure 8 with FiO2 of 40%. 2. Thrombocytopenia-perhaps drug induced. The most likely drug on his list to cause this would be the cefepime. Plan to stop cefepime. 3. Continue steroids. 4. Not weanable at this time. 5. He is being given a platelet transfusion today, but I think it would be best to stop the cefepime. 6. I would anticipate him being on a ventilator for quite some time. Job ID: [id number]
[2020-12-29] MEDS: Ascorbic Acid 500 mg Chewable Tablet PO SCH (09:33)
[2020-12-29] MEDS: Pantoprazole 40 MG GRANULES PACKET PER TUBE SCH (09:33)
[2020-12-29] MEDS: Zinc Sulfate 220 MG CAP PO SCH (09:33)
[2020-12-29] MEDS: Dexamethasone 4 mg/ml Vial SLOW IVP SCH ×2 (09:33→20:32)
[2020-12-29] MEDS: Pancrelipase DR 12,000 1 CAP PO SCH ×2 (09:33→20:17)
[2020-12-29] MEDS: Insulin Glargine 10 UNITS in Pre-Filled Syringe 1 EACH SC SCH (09:50)
--- NOTE | 2020-12-29 15:12 | PDOC.HOSPP ---
- Subjective Encounter Date: 12/29/20 Encounter Time: 10:00 non-verbal (on MV) - Objective Vital Signs & Weight: Vital Signs (12 hours) Temp Pulse Resp Pulse Ox 12/29/20 12:00 22 H 12/29/20 10:48 61 12/29/20 10:00 97.1 F L 22 H 12/29/20 08:00 22 H 100 12/29/20 07:19 64 12/29/20 07:00 95.8 F L 12/29/20 04:00 98.5 F Weight Admit Weight 164 lb Weight 156 lb 15.506 oz Most Recent Monitor Data Heart Rate from ECG 62 NIBP 98/46 NIBP BP-Mean 63 Respiration from ECG 22 SpO2 98 I&O: 12/28/20 12/29/20 12/30/20 06:59 06:59 06:59 Intake Total 3611.0 3109.5 607 Output Total 200 1130 680 Balance 3411.0 1979.5 -73 Result Diagrams: 12/29/20 03:50 12/29/20 03:50 Additional Labs: Accuchecks 12/29/20 12/28/20 12/28/20 09:46 21:30 17:03 POC Glucose 197 H 278 H 237 H Hospitalist ROS - Review of Systems ROS unobtainable: due to endotracheal tube - Medication Medications: Active Medications Generic Name Dose Route Start Last Admin Trade Name Freq PRN Reason Stop Dose Admin Albuterol Sulfate 2 puff 12/23/20 21:05 12/25/20 01:34 Albuterol 200 Puff (6.7gm Inhaler) INH 2 puff [id number] PRN Administration Wheezing Albuterol Sulfate 2 puff 12/24/20 13:00 12/29/20 13:23 Albuterol 200 Puff (6.7gm Inhaler) INH 2 puff [id number] KO Administration Lipase/Protease/Amylase 1 cap 12/24/20 09:00 12/29/20 09:[address] 12,000 1 Cap PO 1 cap BID KO Administration Ascorbic Acid 1,000 mg 12/23/20 09:00 12/29/20 09:33 Ascorbic Acid 500 Mg Chewable Tablet PO 1,000 mg DAILY KO Administration Dexamethasone 6 mg 12/26/20 21:00 12/29/20 09:33 Dexamethasone 4 Mg/Ml Vial SLOW IVP 6 mg BID KO Administration Insulin Glargine 10 units/ 0.1 mls @ 0 mls/hr 12/25/20 09:00 12/29/20 09:50 Miscellaneous Medication SC 0.1 mls QAM KO Administration Doxycycline Hyclate 100 mg/ 100 mls @ 100 mls/hr 12/26/20 17:00 12/29/20 05:12 Sodium Chloride IVPB 100 mls 0500,1700 KO Administration Fentanyl 100 mls @ 0 mls/hr 12/27/20 16:15 12/28/20 16:32 Fentanyl Cadd IV 01/26/21 16:15 100 mls INF KO Administration Protocol Per Protocol Insulin Human Lispro 0 units 12/23/20 21:15 12/27/20 22:11 Humalog 300 Units/3 Ml Vial SC 2 unit .BEDTIME SLIDING SC PRN Administration Bedtime Correctional Scale Insulin Human Lispro 0 units 12/24/20 07:52 12/29/20 05:27 Humalog 300 Units/3 Ml Vial SC 11 unit .AGGRESSIVE SLIDING PRN Administration Aggressive Correctional Scale Lactulose 20 gm 12/24/20 09:00 12/29/20 09:33 Lactulose 20 Gm/30 Ml Udcup PO 20 gm DAILY KO Administration Levothyroxine Sodium 112 mcg 12/25/20 06:00 12/29/20 05:14 Levothyroxine Sodium 112 Mcg Tab PO 112 mcg 0600 KO Administration Pantoprazole Sodium 40 mg 12/28/20 09:00 12/29/20 09:33 Pantoprazole 40 Mg Granules Packet PER TUBE 40 mg QAM KO Administration Propofol 1,000 mg 12/27/20 16:15 12/28/20 16:31 Propofol 1,000 Mg/100 Ml Vial IV 01/26/21 16:15 1,000 mg INF PRN Administration TO ACHIEVE GOAL RASS Protocol Sodium Chloride 10 ml 12/24/20 21:00 12/29/20 09:34 Flush - Normal Saline 10 Ml Syringe IVF 10 ml Q12HR KO Administration Zinc Sulfate 220 mg 12/23/20 09:00 12/29/20 09:33 Zinc Sulfate 220 Mg Cap PO 220 mg DAILY KO Administration Hospitalist Exam Vitals: Vital Signs (12 hours) Temp Pulse Resp Pulse Ox 12/29/20 12:00 22 H 12/29/20 10:48 61 12/29/20 10:00 97.1 F L 22 H 12/29/20 08:00 22 H 100 12/29/20 07:19 64 12/29/20 07:00 95.8 F L 12/29/20 04:00 98.5 F Weight Admit Weight 164 lb Weight 156 lb 15.506 oz Most Recent Monitor Data Heart Rate from ECG 62 NIBP 98/46 NIBP BP-Mean 63 Respiration from ECG 22 SpO2 98 General Appearance: ill appearing Eye: PERRL, anicteric sclera ENT: normocephalic atraumatic, no oropharyngeal lesions Neck: supple, symmetric, no JVD Heart: RRR, no murmur, no gallops Respiratory: CTAB, no wheezes, no rales Gastrointestinal: soft, non-tender, non-distended Extremities: no cyanosis, no clubbing, no edema Skin: normal turgor, no lesions Neurological - other findings: sedated Musculoskeletal: normal tone Psychiatric: normal affect, normal behavior Psychiatric - other findings: sedated Hosp A/P (1) Acute respiratory failure with hypoxemia Code(s): J96.01 - ACUTE RESPIRATORY FAILURE WITH HYPOXIA Status: Acute (2) Cardiomyopathy Code(s): I42.9 - CARDIOMYOPATHY, UNSPECIFIED Status: Acute Qualifiers: Cardiomyopathy type: unspecified Qualified Code(s): I42.9 - Cardiomyopathy, unspecified (3) Pneumonia due to COVID-19 virus Code(s): U07.1 - COVID-19; J12.82 - PNEUMONIA DUE TO CORONAVIRUS DISEASE 2019 Status: Acute (4) Chronic obstructive pulmonary disease Status: Chronic Qualifiers: Emphysema type: unspecified (5) Cirrhosis Code(s): K74.60 - UNSPECIFIED CIRRHOSIS OF LIVER Status: Chronic Qualifiers: Hepatic cirrhosis type: unspecified hepatic cirrhosis (6) Congestive heart failure Code(s): I50.9 - HEART FAILURE, UNSPECIFIED Status: Chronic (7) Diabetes mellitus Code(s): E11.9 - TYPE 2 DIABETES MELLITUS WITHOUT COMPLICATIONS Status: Chronic Qualifiers: Diabetes mellitus type: type 2 Diabetes mellitus detention insulin use: with detention use Diabetes mellitus complication status: without complication Qualified Code(s): E11.9 - Type 2 diabetes mellitus without complications; Z79.4 - assisted (current) use of insulin (8) Dyslipidemia Code(s): E78.5 - HYPERLIPIDEMIA, UNSPECIFIED Status: Chronic (9) Hypertension Code(s): I10 - ESSENTIAL (PRIMARY) HYPERTENSION Status: Chronic Qualifiers: Hypertension type: essential hypertension Qualified Code(s): I10 - Essential (primary) hypertension (10) Hypothyroid Code(s): E03.9 - HYPOTHYROIDISM, UNSPECIFIED Status: Chronic Qualifiers: Hypothyroidism type: unspecified Qualified Code(s): E03.9 - Hypothyroidism, unspecified - Plan receiving plt transfusion cefepime d/c on low dose pressors vent per employment recruiter cont steroids, empiric antibx prognosis guarded r
[2020-12-29] MEDS: Propofol 1,000 MG/100 ML VIAL IV PRN (16:35)
[2020-12-29] MEDS ORDERED: Fentanyl CADD 100 ML ONE (20:28)
[2020-12-29] MEDS: Fentanyl CADD 100 ML IV SCH (20:35)
[2020-12-29] MEDS: Norepinephrine 8 MG/0.9% NS 250 ML IVPB SCH (22:10)
[2020-12-30] MEDS: Albuterol 200 PUFF (6.7GM INHALER) INH SCH ×4 (01:21→18:43)
[2020-12-30] MEDS: HumaLOG 300 UNITS/3 ML VIAL SC PRN ×3 (04:17→16:34)
[2020-12-30 04:45] LABS: Anion Gap 14 mmol/L (10-20); BUN (Urea Nitrogen) 83 mg/dL (8.4-25.7); Calc. Creatinine Clearance 31 mL/min (70-130); Calcium 8.2 mg/dL (7.8-10.44); Carbon Dioxide 18 mmol/L (23-31); Chloride 112 mmol/L (98-107); Glucose 292 mg/dL (83-110); Potassium 4.2 mmol/L (3.5-5.1); Sodium 140 mmol/L (136-145)
[2020-12-30 04:52] LABS: Anisocytosis SLIGHT = 6-15 cells (100X) (0-5/hpf); Band 11 % (5-11); Eosinophils 1 % (0-10); Hemoglobin 8.3 g/dL (14.0-18.0); Lymphocytes 10 % (21-51); MDiff Complete? YES; Mean Corpuscular HGB CONC 33.9 g/dL (32.0-36.0); Mean Corpuscular Hemoglobin 36.6 pg (27.0-31.0); Monocytes 14 % (0-10); Myelocyte 3 % (0-0); Neutrophil 61 % (42-75); Ovalocytes SLIGHT = 2-5 cells (100X) (0-1/hpf); Platelet Count 31 thou/uL (130-400); Platelet Morphology Comment Appears Decreased; RBC Distribution Width 18.7 % (11.5-14.5); Red Blood Cell (RBC) Count 2.27 mill/uL (4.70-6.10); White Blood Cell (WBC) Count 7.7 thou/uL (4.8-10.8)
[2020-12-30] MEDS: Levothyroxine Sodium 112 MCG TAB PO SCH (06:09)
[2020-12-30] MEDS: Ascorbic Acid 500 mg Chewable Tablet PO SCH (08:29)
[2020-12-30] MEDS: Zinc Sulfate 220 MG CAP PO SCH (08:29)
[2020-12-30] MEDS: Pancrelipase DR 12,000 1 CAP PO SCH ×2 (08:29→20:07)
[2020-12-30] MEDS: Pantoprazole 40 MG GRANULES PACKET PER TUBE SCH (08:29)
[2020-12-30] MEDS: Dexamethasone 4 mg/ml Vial SLOW IVP SCH ×2 (08:29→20:07)
--- NOTE | 2020-12-30 10:06 | PRG ---
DATE OF SERVICE: 12/30/2020 SUBJECTIVE: Mr. Angelo remains intubated on mechanical ventilation. I can get him to wake up and nod. OBJECTIVE: VITAL SIGNS: His pulse is 65, blood pressure 101/41, O2 saturation 100%, respiratory rate 27. He was on bilevel ventilation, but I have since switched him over SIMV, his FiO2 is currently 40% and his PEEP is at 8. HEENT: Unremarkable. NECK: No JVD. LUNGS: Fairly clear anteriorly. CARDIAC: S1, S2. Regular. ABDOMEN: Soft. EXTREMITIES: No edema. IMAGING DATA: Chest x-ray was not done today. LABORATORY DATA: Sodium 140, potassium 4.2, chloride 112, CO2 of 18, BUN 83, creatinine 1.7, glucose 292. White blood cell count 7.7, hematocrit 24.5, and platelet count 31. ASSESSMENT: 1. Coronavirus disease 2019 pneumonia with respiratory failure, requiring mechanical ventilation. 2. Thrombocytopenia, which I think is probably drug induced by cefepime. 3. Advanced age. PLAN: 1. I have switched him over to SIMV ventilation. His cefepime has been stopped. We will continue to monitor his platelet count closely. He will continue on the steroids. Anticoagulation is being held secondary to his low platelet count. 2. I have added NPH insulin to help control his blood sugars. Job ID: [id number]
[2020-12-30] MEDS ORDERED: NPH, Human Insulin Isophane 300 UNIT/3 ML VIAL SC SCH (10:30)
[2020-12-30 14:37] LABS: Heparin-Induced Ab (HITA) 0.098 OD (0.000-0.400)
--- NOTE | 2020-12-30 15:47 | PDOC.HOSPP ---
- Subjective Subjective: Patient was seen examined at bedside. Patient remains intubated, still on low- dose of pressure support - Objective Vital Signs & Weight: Vital Signs (12 hours) Temp Pulse Resp Pulse Ox 12/30/20 15:10 64 12/30/20 13:00 98.4 F 12/30/20 12:00 20 12/30/20 11:07 63 12/30/20 10:00 20 12/30/20 08:00 97.4 F L 22 H 100 12/30/20 07:45 63 12/30/20 06:00 22 H 12/30/20 04:00 97.8 F 22 H Weight Admit Weight 164 lb Weight 156 lb 15.506 oz Most Recent Monitor Data Heart Rate from ECG 68 NIBP 97/46 NIBP BP-Mean 63 Respiration from ECG 26 SpO2 95 I&O: 12/29/20 12/30/20 12/31/20 06:59 06:59 06:59 Intake Total 3109.5 2298.1 130 Output Total 1130 1585 345 Balance 1979.5 713.1 -215 Result Diagrams: 12/30/20 03:20 12/30/20 03:20 Additional Labs: Accuchecks 12/30/20 12/29/20 12/29/20 10:29 20:46 16:41 POC Glucose 172 H 223 H 196 H Radiology Reviewed by me: Yes Hospitalist ROS - Medication Medications: Active Medications Generic Name Dose Route Start Last Admin Trade Name Freq PRN Reason Stop Dose Admin Albuterol Sulfate 2 puff 12/23/20 21:05 12/25/20 01:34 Albuterol 200 Puff (6.7gm Inhaler) INH 2 puff [id number] PRN Administration Wheezing Albuterol Sulfate 2 puff 12/24/20 13:00 12/30/20 13:30 Albuterol 200 Puff (6.7gm Inhaler) INH 2 puff [id number] KO Administration Lipase/Protease/Amylase 1 cap 12/24/20 09:00 12/30/20 08:[address] 12,000 1 Cap PO 1 cap BID KO Administration Ascorbic Acid 1,000 mg 12/23/20 09:00 12/30/20 08:29 Ascorbic Acid 500 Mg Chewable Tablet PO 1,000 mg DAILY KO Administration Dexamethasone 6 mg 12/26/20 21:00 12/30/20 08:29 Dexamethasone 4 Mg/Ml Vial SLOW IVP 6 mg BID KO Administration Doxycycline Hyclate 100 mg/ 100 mls @ 100 mls/hr 12/26/20 17:00 12/30/20 06:08 Sodium Chloride IVPB 100 mls 0500,1700 KO Administration Fentanyl 100 mls @ 0 mls/hr 12/27/20 16:15 12/29/20 20:35 Fentanyl Cadd IV 01/26/21 16:15 100 mls INF KO Administration Protocol Per Protocol Norepinephrine Bitartrate 250 mls @ 0 mls/hr 12/27/20 21:30 12/29/20 22:10 Levophed IVPB 250 mls INF KO Administration Protocol Titrate Insulin Human Lispro 0 units 12/23/20 21:15 12/27/20 22:11 Humalog 300 Units/3 Ml Vial SC 2 unit .BEDTIME SLIDING SC PRN Administration Bedtime Correctional Scale Insulin Human Lispro 0 units 12/24/20 07:52 12/30/20 10:30 Humalog 300 Units/3 Ml Vial SC 3 unit .AGGRESSIVE SLIDING PRN Administration Aggressive Correctional Scale Lactulose 20 gm 12/24/20 09:00 12/30/20 08:29 Lactulose 20 Gm/30 Ml Udcup PO 20 gm DAILY KO Administration Levothyroxine Sodium 112 mcg 12/25/20 06:00 12/30/20 06:09 Levothyroxine Sodium 112 Mcg Tab PO 112 mcg 0600 KO Administration Pantoprazole Sodium 40 mg 12/28/20 09:00 12/30/20 08:29 Pantoprazole 40 Mg Granules Packet PER TUBE 40 mg QAM KO Administration Propofol 1,000 mg 12/27/20 16:15 12/29/20 16:35 Propofol 1,000 Mg/100 Ml Vial IV 01/26/21 16:15 1,000 mg INF PRN Administration TO ACHIEVE GOAL RASS Protocol Sodium Chloride 10 ml 12/24/20 21:00 12/30/20 08:29 Flush - Normal Saline 10 Ml Syringe IVF 10 ml Q12HR KO Administration Zinc Sulfate 220 mg 12/23/20 09:00 12/30/20 08:29 Zinc Sulfate 220 Mg Cap PO 220 mg DAILY KO Administration Hospitalist Exam Vitals: Vital Signs (12 hours) Temp Pulse Resp Pulse Ox 12/30/20 15:10 64 12/30/20 13:00 98.4 F 12/30/20 12:00 20 12/30/20 11:07 63 12/30/20 10:00 20 12/30/20 08:00 97.4 F L 22 H 100 12/30/20 07:45 63 12/30/20 06:00 22 H 12/30/20 04:00 97.8 F 22 H Weight Admit Weight 164 lb Weight 156 lb 15.506 oz Most Recent Monitor Data Heart Rate from ECG 68 NIBP 97/46 NIBP BP-Mean 63 Respiration from ECG 26 SpO2 95 General - other findings: intubated Eye: PERRL ENT: normocephalic atraumatic Neck: supple Heart: RRR Respiratory: CTAB, no wheezes Gastrointestinal: soft, non-tender Extremities: no cyanosis Skin: normal turgor Neurological - other findings: intubated and sedated Musculoskeletal: normal tone Psychiatric: normal affect, normal behavior, A&O x 3 Hosp A/P - Plan (1) Acute respiratory failure with hypoxemia Code(s): J96.01 - ACUTE RESPIRATORY FAILURE WITH HYPOXIA Status: Acute (2) Cardiomyopathy Code(s): I42.9 - CARDIOMYOPATHY, UNSPECIFIED Status: Acute Qualifiers: Cardiomyopathy type: unspecified Qualified Code(s): I42.9 - Cardiomyopathy, unspecified (3) Pneumonia due to COVID-19 virus Code(s): U07.1 - COVID-19; J12.82 - PNEUMONIA DUE TO CORONAVIRUS DISEASE 2019 Status: Acute (4) Chronic obstructive pulmonary disease Status: Chronic Qualifiers: Emphysema type: unspecified (5) Cirrhosis Code(s): K74.60 - UNSPECIFIED CIRRHOSIS OF LIVER Status: Chronic Qualifiers: Hepatic cirrhosis type: unspecified hepatic cirrhosis (6) Congestive heart failure Code(s): I50.9 - HEART FAILURE, UNSPECIFIED Status: Chronic (7) Diabetes mellitus Code(s): E11.9 - TYPE 2 DIABETES MELLITUS WITHOUT COMPLICATIONS Status: Chronic Qualifiers: Diabetes mellitus type: type 2 Diabetes mellitus care home insulin use: with care home use Diabetes mellitus complication status: without complication Qualified Code(s): E11.9 - Type 2 diabetes mellitus without complications; Z79.4 - intermission coordinator (current) use of insulin (8) Dyslipidemia Code(s): E78.5 - HYPERLIPIDEMIA, UNSPECIFIED Status: Chronic (9) Hypertension Code(s): I10 - ESSENTIAL (PRIMARY) HYPERTENSION Status: Chronic Qualifiers: Hypertension type: essential hypertension Qualified Code(s): I10 - Essential (primary) hypertension (10) Hypothyroid Code(s): E03.9 - HYPOTHYROIDISM, UNSPECIFIED Status: Chronic Qualifiers: Hypothyroidism type: unspecified Qualified Code(s): E03.9 - Hypothyroidism, unspecified - Plan s/p plt transfusion. Plt trending up. Cefepime was discontinued. cont steroid, wean pressor as tolerated. vent mgt as per employee development manager, appreciate Dr. Yeager prognosis guarded Follow AM labs
[2020-12-30] MEDS: Propofol 1,000 MG/100 ML VIAL IV PRN (16:38)
[2020-12-30] MEDS: Insulin Glargine 10 UNITS in Pre-Filled Syringe 1 EACH SC SCH (18:35)
[2020-12-30] MEDS: NPH, Human Insulin Isophane 300 UNIT/3 ML VIAL SC SCH (20:41)
[2020-12-30] MEDS ORDERED: Fentanyl CADD 100 ML ONE (23:20)
[2020-12-30] MEDS: Fentanyl CADD 100 ML IV SCH (23:25)
[2020-12-31] MEDS: Albuterol 200 PUFF (6.7GM INHALER) INH SCH ×4 (00:03→18:18)
[2020-12-31 04:20] LABS: Anion Gap 13 mmol/L (10-20); BUN (Urea Nitrogen) 91 mg/dL (8.4-25.7); Calc. Creatinine Clearance 32 mL/min (70-130); Calcium 8.3 mg/dL (7.8-10.44); Carbon Dioxide 20 mmol/L (23-31); Chloride 114 mmol/L (98-107); Glucose 197 mg/dL (83-110); Potassium 4.6 mmol/L (3.5-5.1); Sodium 142 mmol/L (136-145)
[2020-12-31 04:56] LABS: Anisocytosis SLIGHT = 6-15 cells (100X) (0-5/hpf); Band 17 % (5-11); Hemoglobin 9.1 g/dL (14.0-18.0); Lymphocytes 4 % (21-51); MDiff Complete? YES; Macrocytosis SLIGHT = 6-15 cells (100X) (0-5/hpf); Mean Corpuscular HGB CONC 33.4 g/dL (32.0-36.0); Mean Corpuscular Hemoglobin 35.8 pg (27.0-31.0); Mean Platelet Volume 11.7 fL (7.4-10.4); Monocytes 11 % (0-10); Myelocyte 4 % (0-0); Neutrophil 64 % (42-75); Platelet Count 29 thou/uL (130-400); Platelet Morphology Comment Appears Decreased; Polychromasia SLIGHT = 2-3 cells (100X) (0-2/hpf); RBC Distribution Width 18.8 % (11.5-14.5); Red Blood Cell (RBC) Count 2.54 mill/uL (4.70-6.10); Schistocytes SLIGHT = 2-5 cells (100X) (0-1/hpf); White Blood Cell (WBC) Count 9.1 thou/uL (4.8-10.8)
[2020-12-31] MEDS: Levothyroxine Sodium 112 MCG TAB PO SCH (05:02)
[2020-12-31] MEDS: Pancrelipase DR 12,000 1 CAP PO SCH ×2 (08:16→21:40)
[2020-12-31] MEDS: Zinc Sulfate 220 MG CAP PO SCH (08:16)
[2020-12-31] MEDS: Dexamethasone 4 mg/ml Vial SLOW IVP SCH ×2 (08:16→21:39)
[2020-12-31] MEDS: Pantoprazole 40 MG GRANULES PACKET PER TUBE SCH (08:16)
[2020-12-31] MEDS: Ascorbic Acid 500 mg Chewable Tablet PO SCH (08:16)
[2020-12-31] MEDS: Norepinephrine 8 MG/0.9% NS 250 ML IVPB SCH (08:17)
[2020-12-31] MEDS: NPH, Human Insulin Isophane 300 UNIT/3 ML VIAL SC SCH ×2 (09:42→21:52)
[2020-12-31] MEDS: HumaLOG 300 UNITS/3 ML VIAL SC PRN ×2 (09:55→16:29)
--- NOTE | 2020-12-31 10:10 | RAD ---
EXAM: Chest one view: HISTORY: Follow-up pneumonia COMPARISON: 12/27/2020 FINDINGS: Stable life-support tubes. Rotation to the right. Stable appearing left transvenous defibrillator. Heart size: Cardiomegaly. Lungs: Patchy interstitial and alveolar parenchymal changes with more density in the right base proba hoang some subsegmental atelectasis or multifocal pneumonia. Evidence for right pleural effusion. No pneumothorax. IMPRESSION: Stable exam. Continued short-term follow-up.
--- NOTE | 2020-12-31 12:19 | PRG ---
DATE OF SERVICE: 12/31/2020 35 minutes of critical care time. SUBJECTIVE: The patient remains intubated on mechanical ventilation for COVID-19 pneumonia. OBJECTIVE: VITAL SIGNS: His temperature is 96.5, pulse 65, blood pressure 118/53, O2 sat 98%. He is currently sedated on fentanyl and propofol. He is on a norepinephrine drip of 4 mcg/minute. His intake for the last 24 hours was 1899, output 1460. GENERAL: He appears disheveled. HEENT: Unremarkable. NECK: No JVD. LUNGS: Rhonchi bilaterally. CARDIOVASCULAR: S1, S2. Paced. ABDOMEN: Soft. EXTREMITIES: Edematous. LABORATORY DATA: Sodium 142, potassium 4.6, chloride 114, CO2 20, BUN 91, creatinine 1.7, glucose 197. CBC: White count 9.1, hematocrit 27.2, and platelet count 29. His x-ray continues to show bilateral infiltrates, worse on the right than the left. ASSESSMENT: 1. COVID-19 pneumonia. 2. Thrombocytopenia, likely drug-induced. 3. Advanced age. 4. Acute respiratory failure, requiring mechanical ventilation. PLAN: The patient does not look weanable beyond his current ventilator settings. His current medications seem to be appropriate. His blood sugars are still under marginal control at best. We will have to make a decision in the upcoming days whether to proceed with tracheostomy or not. His prognosis seems very poor. Job ID: [id number]
--- NOTE | 2020-12-31 14:11 | PDOC.HOSPP ---
- Subjective Subjective: No significant change overnight. BG stable. still on low dose levo. remains intubated - Objective Vital Signs & Weight: Vital Signs (12 hours) Temp Pulse Resp BP Pulse Ox 12/31/20 13:26 72 112/55 L 12/31/20 12:00 20 12/31/20 11:17 63 93/42 L 12/31/20 10:00 20 12/31/20 08:01 63 92/38 L 12/31/20 08:00 96.5 F L 20 96 12/31/20 06:00 20 12/31/20 04:00 97.2 F L 20 12/31/20 02:54 66 117/51 L Weight Admit Weight 164 lb Weight 156 lb 15.506 oz Most Recent Monitor Data Heart Rate from ECG 69 NIBP 112/55 NIBP BP-Mean 74 Respiration from ECG 20 SpO2 98 I&O: 12/30/20 12/31/20 01/01/21 06:59 06:59 06:59 Intake Total 2298.1 1899.7 130 Output Total 1585 1460 410 Balance 713.1 439.7 -280 Result Diagrams: 12/31/20 03:26 12/31/20 03:26 Additional Labs: Accuchecks 12/31/20 12/31/20 12/30/20 09:51 03:57 20:16 POC Glucose 182 H 159 H 138 H 12/30/20 16:39 POC Glucose 165 H Hospitalist ROS - Medication Medications: Active Medications Generic Name Dose Route Start Last Admin Trade Name Freq PRN Reason Stop Dose Admin Albuterol Sulfate 2 puff 12/23/20 21:05 12/25/20 01:34 Albuterol 200 Puff (6.7gm Inhaler) INH 2 puff [id number] PRN Administration Wheezing Albuterol Sulfate 2 puff 12/24/20 13:00 12/31/20 13:26 Albuterol 200 Puff (6.7gm Inhaler) INH 2 puff [id number] KO Administration Lipase/Protease/Amylase 1 cap 12/24/20 09:00 12/31/20 08:[address] 12,000 1 Cap PO 1 cap BID KO Administration Ascorbic Acid 1,000 mg 12/23/20 09:00 12/31/20 08:16 Ascorbic Acid 500 Mg Chewable Tablet PO 1,000 mg DAILY KO Administration Dexamethasone 6 mg 12/26/20 21:00 12/31/20 08:16 Dexamethasone 4 Mg/Ml Vial SLOW IVP 6 mg BID KO Administration Doxycycline Hyclate 100 mg/ 100 mls @ 100 mls/hr 12/26/20 17:00 12/31/20 05:02 Sodium Chloride IVPB 100 mls 0500,1700 KO Administration Fentanyl 100 mls @ 0 mls/hr 12/27/20 16:15 12/30/20 23:25 Fentanyl Cadd IV 01/26/21 16:15 100 mls INF KO Administration Protocol Per Protocol Norepinephrine Bitartrate 250 mls @ 0 mls/hr 12/27/20 21:30 12/31/20 08:17 Levophed IVPB 250 mls INF KO Administration Protocol Titrate Insulin Human Lispro 0 units 12/23/20 21:15 12/27/20 22:11 Humalog 300 Units/3 Ml Vial SC 2 unit .BEDTIME SLIDING SC PRN Administration Bedtime Correctional Scale Insulin Human Lispro 0 units 12/24/20 07:52 12/31/20 09:55 Humalog 300 Units/3 Ml Vial SC 3 unit .AGGRESSIVE SLIDING PRN Administration Aggressive Correctional Scale Insulin Human NPH 20 unit 12/30/20 21:00 12/31/20 09:42 Nph, Human Insulin Isophane 300 Unit/3 Ml Vial SC 20 unit BID KO Administration Lactulose 20 gm 12/24/20 09:00 12/31/20 08:16 Lactulose 20 Gm/30 Ml Udcup PO 20 gm DAILY KO Administration Levothyroxine Sodium 112 mcg 12/25/20 06:00 12/31/20 05:02 Levothyroxine Sodium 112 Mcg Tab PO 112 mcg 0600 KO Administration Pantoprazole Sodium 40 mg 12/28/20 09:00 12/31/20 08:16 Pantoprazole 40 Mg Granules Packet PER TUBE 40 mg QAM KO Administration Propofol 1,000 mg 12/27/20 16:15 12/30/20 16:38 Propofol 1,000 Mg/100 Ml Vial IV 01/26/21 16:15 1,000 mg INF PRN Administration TO ACHIEVE GOAL RASS Protocol Sodium Chloride 10 ml 12/24/20 21:00 12/31/20 08:16 Flush - Normal Saline 10 Ml Syringe IVF 10 ml Q12HR KO Administration Zinc Sulfate 220 mg 12/23/20 09:00 12/31/20 08:16 Zinc Sulfate 220 Mg Cap PO 220 mg DAILY KO Administration Hospitalist Exam Vitals: Vital Signs (12 hours) Temp Pulse Resp BP Pulse Ox 12/31/20 13:26 72 112/55 L 12/31/20 12:00 20 12/31/20 11:17 63 93/42 L 12/31/20 10:00 20 12/31/20 08:01 63 92/38 L 12/31/20 08:00 96.5 F L 20 96 12/31/20 06:00 20 12/31/20 04:00 97.2 F L 20 12/31/20 02:54 66 117/51 L Weight Admit Weight 164 lb Weight 156 lb 15.506 oz Most Recent Monitor Data Heart Rate from ECG 69 NIBP 112/55 NIBP BP-Mean 74 Respiration from ECG 20 SpO2 98 General - other findings: sedated and intubated Eye: PERRL ENT: normocephalic atraumatic Heart: RRR Respiratory: rhonchi Gastrointestinal: soft Extremities: no cyanosis Skin: normal turgor Neurological - other findings: remains intubated Hosp A/P - Plan (1) Acute respiratory failure with hypoxemia Code(s): J96.01 - ACUTE RESPIRATORY FAILURE WITH HYPOXIA Status: Acute (2) Cardiomyopathy Code(s): I42.9 - CARDIOMYOPATHY, UNSPECIFIED Status: Acute Qualifiers: Cardiomyopathy type: unspecified Qualified Code(s): I42.9 - Cardiomyopathy, unspecified (3) Pneumonia due to COVID-19 virus Code(s): U07.1 - COVID-19; J12.82 - PNEUMONIA DUE TO CORONAVIRUS DISEASE 2019 Status: Acute (4) Chronic obstructive pulmonary disease Status: Chronic Qualifiers: Emphysema type: unspecified (5) Cirrhosis Code(s): K74.60 - UNSPECIFIED CIRRHOSIS OF LIVER Status: Chronic Qualifiers: Hepatic cirrhosis type: unspecified hepatic cirrhosis (6) Congestive heart failure Code(s): I50.9 - HEART FAILURE, UNSPECIFIED Status: Chronic (7) Diabetes mellitus Code(s): E11.9 - TYPE 2 DIABETES MELLITUS WITHOUT COMPLICATIONS Status: Chronic Qualifiers: Diabetes mellitus type: type 2 Diabetes mellitus mcc insulin use: with intermediate teacher use Diabetes mellitus complication status: without complication Qualified Code(s): E11.9 - Type 2 diabetes mellitus without complications; Z79.4 - MCFP (current) use of insulin (8) Dyslipidemia Code(s): E78.5 - HYPERLIPIDEMIA, UNSPECIFIED Status: Chronic (9) Hypertension Code(s): I10 - ESSENTIAL (PRIMARY) HYPERTENSION Status: Chronic Qualifiers: Hypertension type: essential hypertension Qualified Code(s): I10 - Essential (primary) hypertension (10) Hypothyroid Code(s): E03.9 - HYPOTHYROIDISM, UNSPECIFIED Status: Chronic Qualifiers: Hypothyroidism type: unspecified Qualified Code(s): E03.9 - Hypothyroidism, unspecified - Plan cont vent mgt as per space and storage clerk PLT stable after transfusion wean off Levo as tolerated cont Decadron, supportive cares. Poor Prognosis
[2020-12-31] MEDS: Propofol 1,000 MG/100 ML VIAL IV PRN (16:04)
[2021-01-01] MEDS: Albuterol 200 PUFF (6.7GM INHALER) INH SCH ×4 (00:25→19:35)
[2021-01-01] MEDS ORDERED: Fentanyl CADD 100 ML ONE (02:20)
[2021-01-01] MEDS: Fentanyl CADD 100 ML IV SCH (02:26)
[2021-01-01 05:04] LABS: Platelet Count 15 thou/uL (130-400)
[2021-01-01 05:15] LABS: Anion Gap 13 mmol/L (10-20); BUN (Urea Nitrogen) 91 mg/dL (8.4-25.7); CRP (Inflammatory) 2.25 mg/dL (= or < 0.5); Calc. Creatinine Clearance 31 mL/min (70-130); Calcium 8.3 mg/dL (7.8-10.44); Carbon Dioxide 22 mmol/L (23-31); Chloride 116 mmol/L (98-107); Glucose 244 mg/dL (83-110); Potassium 4.8 mmol/L (3.5-5.1); Sodium 146 mmol/L (136-145)
[2021-01-01] MEDS: HumaLOG 300 UNITS/3 ML VIAL SC PRN (06:32)
[2021-01-01] MEDS: Levothyroxine Sodium 112 MCG TAB PO SCH (07:05)
[2021-01-01 07:14] LABS: Hemoglobin 8.4 g/dL (14.0-18.0); Mean Corpuscular HGB CONC 34.1 g/dL (32.0-36.0); Mean Corpuscular Hemoglobin 37.5 pg (27.0-31.0); Mean Platelet Volume 12.1 fL (7.4-10.4); RBC Distribution Width 19.2 % (11.5-14.5); Red Blood Cell (RBC) Count 2.24 mill/uL (4.70-6.10); White Blood Cell (WBC) Count 8.4 thou/uL (4.8-10.8)
[2021-01-01 08:04] LABS: Band 25 % (5-11); Bite Cells SLIGHT = 2-5 cells (100X) (0-1/hpf); Lymphocytes 10 % (21-51); MDiff Complete? YES; Macrocytosis SLIGHT = 6-15 cells (100X) (0-5/hpf); Metamyelocyte 2 % (0-0); Monocytes 11 % (0-10); Myelocyte 3 % (0-0); Neutrophil 49 % (42-75); Nucleated RBC 1 % (0); Ovalocytes SLIGHT = 2-5 cells (100X) (0-1/hpf); Platelet Morphology Comment Appears Decreased; Polychromasia MODERATE = 3-4 cells (100X) (0-2/hpf); Schistocytes SLIGHT = 2-5 cells (100X) (0-1/hpf)
--- NOTE | 2021-01-01 08:16 | RAD ---
Portable frontal chest radiograph: 01/01/2021 COMPARISON: 12/31/2020 HISTORY: Pneumonia FINDINGS: Stable bilateral shoulder arthroplasties, transvenous pacing device, midline sternotomy wir es, endotracheal tube, and nasogastric tube. Stable patchy opacity in the left perihilar region and left lung base. Nonspecific dense opacity again noted within the right perihilar region and the right lung base suggesting a combination of right lower lobe consolidation/collapse and possible right pleural effusion. IMPRESSION: No significant interval change.
[2021-01-01] MEDS: Pancrelipase DR 12,000 1 CAP PO SCH ×2 (09:05→20:33)
[2021-01-01] MEDS: Ascorbic Acid 500 mg Chewable Tablet PO SCH (09:06)
[2021-01-01] MEDS: Dexamethasone 4 mg/ml Vial SLOW IVP SCH ×2 (09:06→20:33)
[2021-01-01] MEDS: Pantoprazole 40 MG GRANULES PACKET PER TUBE SCH (09:06)
[2021-01-01] MEDS: NPH, Human Insulin Isophane 300 UNIT/3 ML VIAL SC SCH ×2 (09:07→20:34)
[2021-01-01] MEDS: Zinc Sulfate 220 MG CAP PO SCH (09:08)
[2021-01-01] MEDS: Propofol 1,000 MG/100 ML VIAL IV PRN (09:09)
--- NOTE | 2021-01-01 17:55 | PDOC.HOSPP ---
- Subjective Subjective: Guzman at bedside. I have updated his son, Fran on the phone with regard to his condition. His platelets have been steadily trending down, despite transfusion. He is off of Levophed today. - Objective Vital Signs & Weight: Vital Signs (12 hours) Temp Pulse Resp BP Pulse Ox 01/01/21 16:00 20 01/01/21 15:09 69 118/47 L 01/01/21 14:00 20 01/01/21 12:00 97.3 F L 20 01/01/21 11:21 64 105/53 L 01/01/21 10:00 20 01/01/21 08:19 64 87/46 L 01/01/21 08:00 20 01/01/21 07:48 100 01/01/21 06:00 20 Weight Admit Weight 164 lb Weight 156 lb 15.506 oz Most Recent Monitor Data Heart Rate from ECG 62 NIBP 114/48 NIBP BP-Mean 70 Respiration from ECG 20 SpO2 99 I&O: 12/31/20 01/01/21 01/02/21 06:59 06:59 06:59 Intake Total 1899.7 1903.5 90 Output Total 1460 1285 305 Balance 439.7 618.5 -215 Result Diagrams: 01/01/21 04:25 01/01/21 04:25 Additional Labs: Accuchecks 12/31/20 22:03 POC Glucose 198 H Radiology Reviewed by me: Yes EKG Reviewed by me: Yes Hospitalist ROS - Medication Medications: Active Medications Generic Name Dose Route Start Last Admin Trade Name Freq PRN Reason Stop Dose Admin Albuterol Sulfate 2 puff 12/23/20 21:05 12/25/20 01:34 Albuterol 200 Puff (6.7gm Inhaler) INH 2 puff [id number] PRN Administration Wheezing Albuterol Sulfate 2 puff 12/24/20 13:00 01/01/21 14:56 Albuterol 200 Puff (6.7gm Inhaler) INH 2 puff [id number] Administration Lipase/Protease/Amylase 1 cap 12/24/20 09:00 01/01/21 09:[address] 12,000 1 Cap PO 1 cap BID KO Administration Ascorbic Acid 1,000 mg 12/23/20 09:00 01/01/21 09:06 Ascorbic Acid 500 Mg Chewable Tablet PO 1,000 mg DAILY KO Administration Dexamethasone 6 mg 12/26/20 21:00 01/01/21 09:06 Dexamethasone 4 Mg/Ml Vial SLOW IVP 6 mg BID KO Administration Doxycycline Hyclate 100 mg/ 100 mls @ 100 mls/hr 12/26/20 17:00 01/01/21 17:13 Sodium Chloride IVPB 100 mls 0500,1700 KO Administration Fentanyl 100 mls @ 0 mls/hr 12/27/20 16:15 01/01/21 02:26 Fentanyl Cadd IV 01/26/21 16:15 100 mls INF KO Administration Protocol Per Protocol Norepinephrine Bitartrate 250 mls @ 0 mls/hr 12/27/20 21:30 12/31/20 08:17 Levophed IVPB 250 mls INF KO Administration Protocol Titrate Insulin Human Lispro 0 units 12/23/20 21:15 12/27/20 22:11 Humalog 300 Units/3 Ml Vial SC 2 unit .BEDTIME SLIDING SC PRN Administration Bedtime Correctional Scale Insulin Human Lispro 0 units 12/24/20 07:52 01/01/21 06:32 Humalog 300 Units/3 Ml Vial SC 6 unit .AGGRESSIVE SLIDING PRN Administration Aggressive Correctional Scale Insulin Human NPH 20 unit 12/30/20 21:00 01/01/21 09:07 Nph, Human Insulin Isophane 300 Unit/3 Ml Vial SC 20 unit BID KO Administration Lactulose 20 gm 12/24/20 09:00 01/01/21 09:06 Lactulose 20 Gm/30 Ml Udcup PO 20 gm DAILY KO Administration Levothyroxine Sodium 112 mcg 12/25/20 06:00 01/01/21 07:05 Levothyroxine Sodium 112 Mcg Tab PO 112 mcg 0600 KO Administration Pantoprazole Sodium 40 mg 12/28/20 09:00 01/01/21 09:06 Pantoprazole 40 Mg Granules Packet PER TUBE 40 mg QAM KO Administration Propofol 1,000 mg 12/27/20 16:15 01/01/21 09:09 Propofol 1,000 Mg/100 Ml Vial IV 01/26/21 16:15 1,000 mg INF PRN Administration TO ACHIEVE GOAL RASS Protocol Sodium Chloride 10 ml 12/24/20 21:00 02/01/21 09:07 Flush - Normal Saline 10 Ml Syringe IVF 10 ml Q12HR KO Administration Zinc Sulfate 220 mg 12/23/20 09:00 01/01/21 09:08 Zinc Sulfate 220 Mg Cap PO 220 mg DAILY KO Administration Hospitalist Exam Vitals: Vital Signs (12 hours) Temp Pulse Resp BP Pulse Ox 01/01/21 16:00 20 01/01/21 15:09 69 118/47 L 01/01/21 14:00 20 01/01/21 12:00 97.3 F L 20 01/01/21 11:21 64 105/53 L 01/01/21 10:00 20 01/01/21 08:19 64 87/46 L 01/01/21 08:00 20 01/01/21 07:48 100 01/01/21 06:00 20 Weight Admit Weight 164 lb Weight 156 lb 15.506 oz Most Recent Monitor Data Heart Rate from ECG 62 NIBP 114/48 NIBP BP-Mean 70 Respiration from ECG 20 SpO2 99 General - other findings: Patient remains intubated Eye: PERRL ENT: normocephalic atraumatic Neck: supple Heart: RRR Respiratory: rhonchi Gastrointestinal: soft Extremities: no cyanosis Skin: normal turgor Neurological - other findings: Patient remains intubated Musculoskeletal: normal tone Hosp A/P - Plan (1) Acute respiratory failure with hypoxemia Code(s): J96.01 - ACUTE RESPIRATORY FAILURE WITH HYPOXIA Status: Acute (2) Cardiomyopathy Code(s): I42.9 - CARDIOMYOPATHY, UNSPECIFIED Status: Acute Qualifiers: Cardiomyopathy type: unspecified Qualified Code(s): I42.9 - Cardiomyopathy, unspecified (3) Pneumonia due to COVID-19 virus Code(s): U07.1 - COVID-19; J12.82 - PNEUMONIA DUE TO CORONAVIRUS DISEASE 2019 Status: Acute (4) Chronic obstructive pulmonary disease Status: Chronic Qualifiers: Emphysema type: unspecified (5) Cirrhosis Code(s): K74.60 - UNSPECIFIED CIRRHOSIS OF LIVER Status: Chronic Qualifiers: Hepatic cirrhosis type: unspecified hepatic cirrhosis (6) Congestive heart failure Code(s): I50.9 - HEART FAILURE, UNSPECIFIED Status: Chronic (7) Diabetes mellitus Code(s): E11.9 - TYPE 2 DIABETES MELLITUS WITHOUT COMPLICATIONS Status: Chronic Qualifiers: Diabetes mellitus type: type 2 Diabetes mellitus custodial insulin use: with custodial use Diabetes mellitus complication status: without complication Qualified Code(s): E11.9 - Type 2 diabetes mellitus without complications; Z79.4 - research nutritionist (current) use of insulin (8) Dyslipidemia Code(s): E78.5 - HYPERLIPIDEMIA, UNSPECIFIED Status: Chronic (9) Hypertension Code(s): I10 - ESSENTIAL (PRIMARY) HYPERTENSION Status: Chronic Qualifiers: Hypertension type: essential hypertension Qualified Code(s): I10 - Ess ential (primary) hypertension (10) Hypothyroid Code(s): E03.9 - HYPOTHYROIDISM, UNSPECIFIED Status: Chronic Qualifiers: Hypothyroidism type: unspecified Qualified Code(s): E03.9 - Hypothyroidism, unspecified - Plan Patient is now off of Levophed. He remains intubated. No significant changes. His platelet is steadily trending down, consider transfuse if drops below 10 K. Continue Decadron, empiric antibiotic. Further management as per interior design professor I have updated his son on the phone today. Patient remains critically ill.
--- NOTE | 2021-01-01 18:35 | PRG ---
DATE OF SERVICE: 01/01/2021 SUBJECTIVE: Jack Angelo remains mechanically ventilated. OBJECTIVE: VITAL SIGNS: Blood pressure 106/46, heart rate 60, respiratory rate is 20, oximetry is 99% to 100%. LUNGS: Remarkable for equal breath sounds. HEART: Regular rhythm. S1 and S2 are normal. ABDOMEN: Soft and nontender. DIAGNOSTIC STUDIES: Chest x-ray is unchanged. White count 7.7 two days ago, it is now 8.4; hemoglobin 8.4; platelets are still low at 15,000. Electrolytes; sodium 146, potassium 4.8, chloride 116, bicarb 22, BUN 91, creatinine 1.81. IMPRESSION: 1. COVID pneumonia. 2. Acute on chronic kidney disease. 3. Thrombocytopenia. 4. Anemia. He still has metamyelocytes on his peripheral smear and myelocytes. I would like to believe these are some sort of acute phase reaction, but persistence with the thrombocytopenia is a little worrisome. Hematology input probably should be solicited. Critical care time 30 min. Job ID: [id number] MTDD
[2021-01-02] MEDS: Albuterol 200 PUFF (6.7GM INHALER) INH SCH ×4 (00:35→18:30)
[2021-01-02 04:22] LABS: Platelet Count 14 thou/uL (130-400)
[2021-01-02 04:33] LABS: Anion Gap 14 mmol/L (10-20); BUN (Urea Nitrogen) 107 mg/dL (8.4-25.7); CRP (Inflammatory) 2.38 mg/dL (= or < 0.5); Calc. Creatinine Clearance 29 mL/min (70-130); Calcium 8.5 mg/dL (7.8-10.44); Carbon Dioxide 20 mmol/L (23-31); Chloride 115 mmol/L (98-107); Glucose 176 mg/dL (83-110); Potassium 4.9 mmol/L (3.5-5.1); Sodium 144 mmol/L (136-145)
[2021-01-02 04:56] LABS: Anisocytosis SLIGHT = 6-15 cells (100X) (0-5/hpf); Band 17 % (5-11); Hemoglobin 8.9 g/dL (14.0-18.0); Lymphocytes 8 % (21-51); MDiff Complete? YES; Macrocytosis SLIGHT = 6-15 cells (100X) (0-5/hpf); Mean Corpuscular HGB CONC 32.4 g/dL (32.0-36.0); Mean Corpuscular Hemoglobin 35.4 pg (27.0-31.0); Mean Platelet Volume 13.7 fL (7.4-10.4); Monocytes 18 % (0-10); Neutrophil 57 % (42-75); RBC Distribution Width 19.2 % (11.5-14.5); Red Blood Cell (RBC) Count 2.51 mill/uL (4.70-6.10); Schistocytes SLIGHT = 2-5 cells (100X) (0-1/hpf); White Blood Cell (WBC) Count 8.3 thou/uL (4.8-10.8)
[2021-01-02] MEDS: Levothyroxine Sodium 112 MCG TAB PO SCH (06:13)
[2021-01-02] MEDS ORDERED: Sodium Chloride 0.9% 1,000 ML IV SCH (08:00)
--- NOTE | 2021-01-02 08:00 | RAD ---
Portable frontal chest radiograph: 01/02/2021 COMPARISON: 01/01/2021 HISTORY: Pneumonia FINDINGS: Stable endotracheal tube, nasogastric tube, transvenous pacing device, and midline sternoto my wires. Stable coarse linear interstitial and alveolar groundglass opacity throughout the right lung and within the left perihilar region and left base. IMPRESSION: No significant interval change.
--- NOTE | 2021-01-02 08:31 | PRG ---
DATE OF SERVICE: 01/02/2021 SUBJECTIVE: Mr. Angelo is clinically unchanged. OBJECTIVE: VITAL SIGNS: Heart rates in the 70s, respiratory rate is 20, FiO2 is at 40, blood pressure 97/55. GENERAL: Unfortunately, he appears very weak. LUNGS: He has equal breath sounds. HEART: Regular rhythm. ABDOMEN: Soft. EXTREMITIES: Without edema. LABORATORY DATA: White count 8.3, hemoglobin 8.9, and platelets still low at 14,000. He has 18% monocytes on his peripheral smear, 57 segs, 17 bands. Sodium 144, potassium 4.9, chloride 115, bicarb 20, BUN 107, creatinine 1.93. IMPRESSION: 1. COVID pneumonia. 2. Acute on chronic kidney disease. 3. Mild hyperchloremic acidosis. 4. Pancytopenia, probably related to COVID, but myelodysplastic syndrome cannot be ruled out. I planned to discuss with Oncology today. Critical care time 30 min. Job ID: [id number] MTDD
[2021-01-02] MEDS: Dexamethasone 4 mg/ml Vial SLOW IVP SCH ×2 (09:45→20:50)
[2021-01-02] MEDS: Ascorbic Acid 500 mg Chewable Tablet PO SCH (09:46)
[2021-01-02] MEDS: Pancrelipase DR 12,000 1 CAP PO SCH ×2 (09:46→20:50)
[2021-01-02] MEDS: NPH, Human Insulin Isophane 300 UNIT/3 ML VIAL SC SCH ×2 (09:46→20:51)
[2021-01-02] MEDS: Zinc Sulfate 220 MG CAP PO SCH (09:46)
[2021-01-02] MEDS: Pantoprazole 40 MG GRANULES PACKET PER TUBE SCH (09:46)
[2021-01-02] MEDS: Fentanyl CADD 100 ML IV SCH (11:29)
[2021-01-02] MEDS ORDERED: Sodium Bicarbonate 150 MEQ in Dextrose 5% in Water 1,000 ML IVP SCH ×2 (13:30→14:15)
--- NOTE | 2021-01-02 13:55 | CON ---
DATE OF CONSULTATION: REQUESTING PHYSICIAN: Dr. Whatley. REASON FOR CONSULTATION: Acute on chronic kidney disease. IMPRESSION: 1. Acute on chronic kidney disease. This is likely in the context of infection/hemodynamically mediated/COVID nephropathy. 2. Hyperchloremic metabolic acidosis, possibly related to re-expansion acidosis with normal saline. 3. Severe thrombocytopenia, maybe related to . PLAN: 1. Discontinue the normal saline and start this patient with a gentle bicarb based infusion. 2. We will defer to the primary team severe thrombocytopenia. 3. Renally dose all medications and avoid potentially nephrotoxic agents. 4. Further management will be dependent on the clinical course. HISTORY OF PRESENT ILLNESS: History is that of 85-year-old gentleman who presented here with shortness of breath. He also has a history of bladder cancer, carotid artery disease, heart failure, status post AICD, diabetes mellitus type 2, hypothyroidism, the patient on presentation was noted to be very hypoxic with O2 saturations in the 70s and has been on life support, and over the course of hospitalization, now experiencing rise in creatinine as noted by creatinine on presentation of 1.27, but now has gone up to 1.93, prompting the need for Renal consultation. PAST MEDICAL HISTORY: As documented in the body of the history. FAMILY HISTORY: Based on records, pretty much nonsignificantly related to reason for consult. SOCIAL HISTORY AND REVIEW OF SYSTEMS: These cannot be obtained from this patient who is on life support. PHYSICAL EXAMINATION: VITAL SIGNS: The patient is noted with the following vital signs; blood pressure 118/54, heart rate of 73, and O2 saturation of 99%. HEENT: Remarkable for endotracheal tube in place. CARDIOVASCULAR SYSTEM: First and second heart sounds were heard. RESPIRATORY SYSTEM: Revealed vented sounds. DIGESTIVE SYSTEM: Revealed a benign abdomen. EXTREMITIES: No peripheral edema. SKIN: No new gross rash. LYMPHATICS: No peripheral lymphadenopathy. SUMMARY: An 85-year-old gentleman, who presented here with COVID infection, now experiencing deterioration in renal function. Thank you for this consultation. We will follow with you. Job ID: [id number]
--- NOTE | 2021-01-02 18:00 | PDOC.HOSPP ---
- Subjective Subjective: Patient was seen examined at bedside. His renal function slightly worsened today. As well as his platelets start trending down. Initially placed for formal hematology consult however, Dr. Zavala to discuss with oncologis t/service line bus cleaner. For that reason we will hold off on a consult for right now. I have update his sons on the phone with regard to his status. For right now, he would like to continue with aggressive management. - Objective Vital Signs & Weight: Vital Signs (12 hours) Temp Pulse Resp Pulse Ox 01/02/21 16:00 99 F 21 H 01/02/21 15:13 80 01/02/21 14:00 19 01/02/21 12:00 99 F 18 01/02/21 11:25 64 01/02/21 10:00 16 01/02/21 08:00 98.7 F 23 H 100 01/02/21 06:51 74 01/02/21 06:00 20 Weight Admit Weight 164 lb Weight 156 lb 15.506 oz Most Recent Monitor Data Heart Rate from ECG 70 NIBP 113/55 NIBP BP-Mean 74 Respiration from ECG 11 SpO2 98 I&O: 01/01/21 01/02/21 01/03/21 06:59 06:59 06:59 Intake Total 1903.5 1358.4 506 Output Total 1285 855 490 Balance 618.5 503.4 16 Result Diagrams: 01/02/21 04:05 01/02/21 04:05 Additional Labs: Accuchecks 01/02/21 01/02/21 01/01/21 17:00 10:16 20:59 POC Glucose 131 H 216 H 96 01/01/21 01/01/21 17:27 09:48 POC Glucose 102 H 176 H Radiology Reviewed by me: Yes EKG Reviewed by me: Yes Hospitalist ROS - Medication Medications: Active Medications Generic Name Dose Route Start Last Admin Trade Name Freq PRN Reason Stop Dose Admin Albuterol Sulfate 2 puff 12/23/20 21:05 12/25/20 01:34 Albuterol 200 Puff (6.7gm Inhaler) INH 2 puff [id number] PRN Administration Wheezing Albuterol Sulfate 2 puff 12/24/20 13:00 01/02/21 13:15 Albuterol 200 Puff (6.7gm Inhaler) INH 2 puff [id number] Administration Lipase/Protease/Amylase 1 cap 12/24/20 09:00 01/02/21 09:[address] 12,000 1 Cap PO 1 cap BID KO Administration Ascorbic Acid 1,000 mg 12/23/20 09:00 01/02/21 09:46 Ascorbic Acid 500 Mg Chewable Tablet PO 1,000 mg DAILY KO Administration Dexamethasone 6 mg 12/26/20 21:00 01/02/21 09:45 Dexamethasone 4 Mg/Ml Vial SLOW IVP 6 mg BID KO Administration Doxycycline Hyclate 100 mg/ 100 mls @ 100 mls/hr 12/26/20 17:00 01/02/21 17:17 Sodium Chloride IVPB 100 mls 0500,1700 KO Administration Fentanyl 100 mls @ 0 mls/hr 12/27/20 16:15 01/02/21 11:29 Fentanyl Cadd IV 01/26/21 16:15 100 mls INF KO Administration Protocol Per Protocol Norepinephrine Bitartrate 250 mls @ 0 mls/hr 12/27/20 21:30 12/31/20 08:17 Levophed IVPB 250 mls INF KO Administration Protocol Titrate Sodium Bicarbonate 150 meq/ 1,300 mls @ 75 mls/hr 01/02/21 14:15 01/02/21 14:30 Dextrose/Water IVP 1,300 mls INF KO Administration Insulin Human Lispro 0 units 12/23/20 21:15 12/27/20 22:11 Humalog 300 Units/3 Ml Vial SC 2 unit .BEDTIME SLIDING SC PRN Administration Bedtime Correctional Scale Insulin Human Lispro 0 units 12/24/20 07:52 01/01/21 06:32 Humalog 300 Units/3 Ml Vial SC 6 unit .AGGRESSIVE SLIDING PRN Administration Aggressive Correctional Scale Insulin Human NPH 20 unit 12/30/20 21:00 01/02/21 09:46 Nph, Human Insulin Isophane 300 Unit/3 Ml Vial SC 20 unit BID KO Administration Lactulose 20 gm 12/24/20 09:00 01/02/21 09:46 Lactulose 20 Gm/30 Ml Udcup PO 20 gm DAILY KO Administration Levothyroxine Sodium 112 mcg 12/25/20 06:00 01/02/21 06:13 Levothyroxine Sodium 112 Mcg Tab PO 112 mcg 0600 KO Administration Pantoprazole Sodium 40 mg 12/28/20 09:00 01/02/21 09:46 Pantoprazole 40 Mg Granules Packet PER TUBE 40 mg QAM KO Administration Propofol 1,000 mg 12/27/20 16:15 01/01/21 09:09 Propofol 1,000 Mg/100 Ml Vial IV 01/26/21 16:15 1,000 mg INF PRN Administration TO ACHIEVE GOAL RASS Protocol Sodium Chloride 10 ml 12/24/20 21:00 01/02/21 09:47 Flush - Normal Saline 10 Ml Syringe IVF 10 ml Q12HR KO Administration Zinc Sulfate 220 mg 12/23/20 09:00 01/02/21 09:46 Zinc Sulfate 220 Mg Cap PO 220 mg DAILY KO Administration Hospitalist Exam Vitals: Vital Signs (12 hours) Temp Pulse Resp Pulse Ox 01/02/21 16:00 99 F 21 H 01/02/21 15:13 80 01/02/21 14:00 19 01/02/21 12:00 99 F 18 01/02/21 11:25 64 01/02/21 10:00 16 01/02/21 08:00 98.7 F 23 H 100 01/02/21 06:51 74 01/02/21 06:00 20 Weight Admit Weight 164 lb Weight 156 lb 15.506 oz Most Recent Monitor Data Heart Rate from ECG 70 NIBP 113/55 NIBP BP-Mean 74 Respiration from ECG 11 SpO2 98 General - other findings: pt remains on the vent Eye: PERRL ENT: normocephalic atraumatic Neck: supple Heart: RRR Respiratory: rhonchi Gastrointestinal: soft Extremities: no cyanosis Skin: normal turgor Neurological - other findings: intubated Hosp A/P - Plan (1) Acute respiratory failure with hypoxemia Code(s): J96.01 - ACUTE RESPIRATORY FAILURE WITH HYPOXIA Status: Acute (2) Cardiomyopathy Code(s): I42.9 - CARDIOMYOPATHY, UNSPECIFIED Status: Acute Qualifiers: Cardiomyopathy type: unspecified Qualified Code(s): I42.9 - Cardiomyopathy, unspecified (3) Pneumonia due to COVID-19 virus Code(s): U07.1 - COVID-19; J12.82 - PNEUMONIA DUE TO CORONAVIRUS DISEASE 2019 Status: Acute (4) Chronic obstructive pulmonary disease Status: Chronic Qualifiers: Emphysema type: unspecified (5) Cirrhosis Code(s): K74.60 - UNSPECIFIED CIRRHOSIS OF LIVER Status: Chronic Qualifiers: Hepatic cirrhosis type: unspecified hepatic cirrhosis (6) Congestive heart failure Code(s): I50.9 - HEART FAILURE, UNSPECIFIED Status: Chronic (7) Diabetes mellitus Code(s): E11.9 - TYPE 2 DIABETES MELLITUS WITHOUT COMPLICATIONS Status: Chronic Qualifiers: Diabetes mellitus type: type 2 Diabetes mellitus rat exterminator insulin use: with rat exterminator use Diabetes mellitus complication status: without complication Qualified Code(s): E11.9 - Type 2 diabetes mellitus without complications; Z79.4 - terminal computer operator (current) use of insulin (8) Dyslipidemia Code(s): E78.5 - HYPERLIPIDEMIA, UNSPECIFIED Status: Chronic (9) Hypertension Code(s): I10 - ESSENTIAL (PRIMARY) HYPERTENSION Status: Chronic Qualifiers: Hypertension type: essential hypertension Qualified Code(s): I10 - Essential (primary) hypertension (10) Hypothyroid Code(s): E03.9 - HYPOTHYROIDISM, UNSPECIFIED Status: Chronic Qualifiers: Hypothyroidism type: unspecified Qualified Code(s): E03.9 - Hypothyroidism, unspecified (11) CHARISSE - Plan Cont Decadron, empric IV abx Plt trending down. Will hold off on formal service line bus cleaner consult as Dr. Zavala to d/w service line bus cleaner. We will continue with supportive cares Cr trending up, start IVF, consult nephrology. Avoid nephrotoxic agent I have updated his son, Fran Appreciate palliative care team AM labs
[2021-01-02] MEDS: Propofol 1,000 MG/100 ML VIAL IV PRN (23:19)
[2021-01-03] MEDS: Albuterol 200 PUFF (6.7GM INHALER) INH SCH ×4 (00:03→18:46)
[2021-01-03 07:22] LABS: Anion Gap 13 mmol/L (10-20); BUN (Urea Nitrogen) 116 mg/dL (8.4-25.7); CRP (Inflammatory) 2.35 mg/dL (= or < 0.5); Calc. Creatinine Clearance 28 mL/min (70-130); Calcium 8.3 mg/dL (7.8-10.44); Carbon Dioxide 25 mmol/L (23-31); Chloride 115 mmol/L (98-107); Glucose 133 mg/dL (83-110); Potassium 4.7 mmol/L (3.5-5.1); Sodium 148 mmol/L (136-145)
--- NOTE | 2021-01-03 07:29 | RAD ---
Exam: Chest one view HISTORY:Pneumonia Comparison: 01/02/2021 FINDINGS: Lines and tubes: Redemonstration of endotracheal tube, nasogastric tube and left-sided defibrillator. Stable sternotomy wires. Cardiac silhouette:Cardiomegaly Aorta: Atherosclerosis Pulmonary vessels: Normal Costophrenic angles: Small right pleural effusion, unchanged LUNGS: Scattered interstitial and alveolar opacities. Pneumothorax: None Osseous abnormalities: Multiple old right rib fractures. IMPRESSION: No significant interval change.
[2021-01-03 07:41] LABS: Anisocytosis MODERATE=16-30 cells (100X) (0-5/hpf); Band 33 % (5-11); Lymphocytes 5 % (21-51); MDiff Complete? YES; Metamyelocyte 2 % (0-0); Monocytes 18 % (0-10); Myelocyte 1 % (0-0); Neutrophil 41 % (42-75); Platelet Morphology Comment Appears Decreased; Polychromasia MODERATE = 3-4 cells (100X) (0-2/hpf); Schistocytes SLIGHT = 2-5 cells (100X) (0-1/hpf); Tear Drops SLIGHT = 2-5 cells (100X) (0-1/hpf)
[2021-01-03 07:42] LABS: Hemoglobin 8.4 g/dL (14.0-18.0); Mean Corpuscular HGB CONC 32.7 g/dL (32.0-36.0); Mean Platelet Volume 13.6 fL (7.4-10.4); Platelet Count 12 thou/uL (130-400); RBC Distribution Width 19.1 % (11.5-14.5); Red Blood Cell (RBC) Count 2.33 mill/uL (4.70-6.10); White Blood Cell (WBC) Count 9.7 thou/uL (4.8-10.8)
[2021-01-03] MEDS: Levothyroxine Sodium 112 MCG TAB PO SCH (07:49)
[2021-01-03] MEDS: Dexamethasone 4 mg/ml Vial SLOW IVP SCH ×2 (09:20→20:42)
[2021-01-03] MEDS: Pantoprazole 40 MG GRANULES PACKET PER TUBE SCH (09:20)
[2021-01-03] MEDS: Pancrelipase DR 12,000 1 CAP PO SCH ×2 (09:21→20:41)
[2021-01-03] MEDS: Ascorbic Acid 500 mg Chewable Tablet PO SCH (09:21)
[2021-01-03] MEDS: Zinc Sulfate 220 MG CAP PO SCH (09:21)
[2021-01-03] MEDS: NPH, Human Insulin Isophane 300 UNIT/3 ML VIAL SC SCH ×2 (10:04→21:14)
[2021-01-03] MEDS: Dextrose 5% in Water 1,000 ML IV SCH ×2 (10:56→22:13)
[2021-01-03] MEDS ORDERED: Fentanyl CADD 100 ML ONE (12:40)
[2021-01-03] MEDS: Fentanyl CADD 100 ML IV SCH (12:43)
--- NOTE | 2021-01-03 14:55 | PRG ---
DATE OF SERVICE: 01/03/2021 OBJECTIVE: VITAL SIGNS: Respiratory rate 16, FiO2 is at 40, heart rate is in the 70s, blood pressure 116/55. LUNGS: Remarkable for equal breath sounds. HEART: Regular rhythm. ABDOMEN: Soft. EXTREMITIES: Without asymmetry. DIAGNOSTIC STUDIES: Chest radiograph shows diffuse infiltrates. LABORATORY DATA: White count 9.7, hemoglobin 8.4, and platelets 12,000. Sodium 148, potassium 4.7, chloride 115, bicarb 25, BUN 116, and creatinine 1.95. IMPRESSION: 1. Respiratory failure secondary to COVID. 2. Progressive renal dysfunction. 3. Pancytopenia associated with COVID. 4. Extreme deconditioning. PLAN: At 85 years of age, I am not sure that a tracheostomy would lead to reasonable chance of survival. Palliative care is actively involved meeting with family, discussing, planning, etc. Critical care time 30 min. Job ID: [id number] MTDD
--- NOTE | 2021-01-03 18:03 | PDOC.HOSPP ---
- Subjective Subjective: Was seen examined at bedside. No significant change in his vent management. His platelets continue to trend down slightly. No evidence of active bleeding. His renal function appears to be plateau. Appreciate input from nephrology as well as cutting table operator first. I also discussed with palliative team. I updated his son, Fran. He would like to stay aggressive if the patient's knee trach, he would like to proceed with that although some nausea with his or not he is a candidate nor if that will produce any survival benefits. - Objective Vital Signs & Weight: Vital Signs (12 hours) Temp Pulse Resp 01/03/21 16:00 96.7 F L 19 01/03/21 15:04 75 01/03/21 14:00 96.9 F L 16 01/03/21 12:00 96.6 F L 16 01/03/21 11:00 96.2 F L 01/03/21 10:49 61 01/03/21 10:00 14 01/03/21 08:00 95.0 F L 16 01/03/21 06:30 68 Weight Admit Weight 164 lb Weight 156 lb 15.506 oz Most Recent Monitor Data Heart Rate from ECG 64 NIBP 131/61 NIBP BP-Mean 84 Respiration from ECG 11 SpO2 98 I&O: 01/02/21 01/03/21 01/04/21 06:59 06:59 06:59 Intake Total 1358.4 2823.7 610.4 Output Total 855 980 850 Balance 503.4 1843.7 -239.6 Result Diagrams: 01/03/21 04:30 01/03/21 03:30 Additional Labs: Accuchecks 01/03/21 01/03/21 01/02/21 15:50 10:07 21:27 POC Glucose 117 H 129 H 107 H Radiology Reviewed by me: Yes EKG Reviewed by me: Yes Hospitalist ROS - Medication Medications: Active Medications Generic Name Dose Route Start Last Admin Trade Name Freq PRN Reason Stop Dose Admin Albuterol Sulfate 2 puff 12/23/20 21:05 12/25/20 01:34 Albuterol 200 Puff (6.7gm Inhaler) INH 2 puff [id number] PRN Administration Wheezing Albuterol Sulfate 2 puff 12/24/20 13:00 01/03/21 13:06 Albuterol 200 Puff (6.7gm Inhaler) INH 2 puff [id number] KO Administration Lipase/Protease/Amylase 1 cap 12/24/20 09:00 01/03/21 09:[address] 12,000 1 Cap PO 1 cap BID KO Administration Ascorbic Acid 1,000 mg 12/23/20 09:00 01/03/21 09:21 Ascorbic Acid 500 Mg Chewable Tablet PO 1,000 mg DAILY KO Administration Dexamethasone 6 mg 12/26/20 21:00 01/03/21 09:20 Dexamethasone 4 Mg/Ml Vial SLOW IVP 6 mg BID KO Administration Doxycycline Hyclate 100 mg/ 100 mls @ 100 mls/hr 12/26/20 17:00 01/03/21 16:32 Sodium Chloride IVPB 01/05/21 05:59 100 mls 0500,1700 KO Administration Fentanyl 100 mls @ 0 mls/hr 12/27/20 16:15 01/03/21 12:43 Fentanyl Cadd IV 01/26/21 16:15 100 mls INF KO Administration Protocol Per Protocol Norepinephrine Bitartrate 250 mls @ 0 mls/hr 12/27/20 21:30 12/31/20 08:17 Levophed IVPB 250 mls INF KO Administration Protocol Titrate Dextrose/Water 1,000 mls @ 100 mls/hr 01/03/21 10:15 01/03/21 10:56 D5w IV 1,000 mls .Q10H KO Administration Insulin Human Lispro 0 units 12/23/20 21:15 12/27/20 22:11 Humalog 300 Units/3 Ml Vial SC 2 unit .BEDTIME SLIDING SC PRN Administration Bedtime Correctional Scale Insulin Human Lispro 0 units 12/24/20 07:52 01/01/21 06:32 Humalog 300 Units/3 Ml Vial SC 6 unit .AGGRESSIVE SLIDING PRN Administration Aggressive Correctional Scale Insulin Human NPH 20 unit 12/30/20 21:00 01/03/21 10:04 Nph, Human Insulin Isophane 300 Unit/3 Ml Vial SC 20 unit BID KO Administration Lactulose 20 gm 12/24/20 09:00 01/03/21 09:20 Lactulose 20 Gm/30 Ml Udcup PO 20 gm DAILY KO Administration Levothyroxine Sodium 112 mcg 12/25/20 06:00 01/03/21 07:49 Levothyroxine Sodium 112 Mcg Tab PO Not Given 0600 KO Pantoprazole Sodium 40 mg 12/28/20 09:00 01/03/21 09:20 Pantoprazole 40 Mg Granules Packet PER TUBE 40 mg QAM KO Administration Propofol 1,000 mg 12/27/20 16:15 01/02/21 23:19 Propofol 1,000 Mg/100 Ml Vial IV 01/26/21 16:15 1,000 mg INF PRN Administration TO ACHIEVE GOAL RASS Protocol Sodium Chloride 10 ml 12/24/20 21:00 01/03/21 09:22 Flush - Normal Saline 10 Ml Syringe IVF 10 ml Q12HR KO Administration Zinc Sulfate 220 mg 12/23/20 09:00 01/03/21 09:21 Zinc Sulfate 220 Mg Cap PO 220 mg DAILY KO Administration Hospitalist Exam Vitals: Vital Signs (12 hours) Temp Pulse Resp 01/03/21 16:00 96.7 F L 19 01/03/21 15:04 75 01/03/21 14:00 96.9 F L 16 01/03/21 12:00 96.6 F L 16 01/03/21 11:00 96.2 F L 01/03/21 10:49 61 01/03/21 10:00 14 01/03/21 08:00 95.0 F L 16 01/03/21 06:30 68 Weight Admit Weight 164 lb Weight 156 lb 15.506 oz Most Recent Monitor Data Heart Rate from ECG 64 NIBP 131/61 NIBP BP-Mean 84 Respiration from ECG 11 SpO2 98 General - other findings: intubated ENT: normocephalic atraumatic Neck: supple Heart: RRR Respiratory: CTAB Gastrointestinal: soft Extremities: no cyanosis Skin: normal turgor Psychiatric: normal affect Hosp A/P - Plan (1) Acute respiratory failure with hypoxemia Code(s): J96.01 - ACUTE RESPIRATORY FAILURE WITH HYPOXIA Status: Acute (2) Cardiomyopathy Code(s): I42.9 - CARDIOMYOPATHY, UNSPECIFIED Status: Acute Qualifiers: Cardiomyopathy type: unspecified Qualified Code(s): I42.9 - Cardiomyopathy, unspecified (3) Pneumonia due to COVID-19 virus Code(s): U07.1 - COVID-19; J12.82 - PNEUMONIA DUE TO CORONAVIRUS DISEASE 2019 Status: Acute (4) Chronic obstructive pulmonary disease Status: Chronic Qualifiers: Emphysema type: unspecified (5) Cirrhosis Code(s): K74.60 - UNSPECIFIED CIRRHOSIS OF LIVER Status: Chronic Qualifiers: Hepatic cirrhosis type: unspecified hepatic cirrhosis (6) Congestive heart failure Code(s): I50.9 - HEART FAILURE, UNSPECIFIED Status: Chronic (7) Diabetes mellitus Code(s): E11.9 - TYPE 2 DIABETES MELLITUS WITHOUT COMPLICATIONS Status: Chronic Qualifiers: Diabetes mellitus type: type 2 Diabetes mellitus truck terminal manager insulin use: with assisted use Diabetes mellitus complication status: without complication Qualified Code(s): E11.9 - Type 2 diabetes mellitus without complications; Z79.4 - alf (current) use of insulin (8) Dyslipidemia Code(s): E78.5 - HYPERLIPIDEMIA, UNSPECIFIED Status: Chronic (9) Hypertension Code(s): I10 - ESSENTIAL (PRIMARY) HYPERTENSION Status: Chronic Qualifiers: Hypertension type: essential hypertension Qualified Code(s): I10 - Essential (primary) hypertension (10) Hypothyroid Code(s): E03.9 - HYPOTHYROIDISM, UNSPECIFIED Status: Chronic Qualifiers: Hypothyroidism type: unspecified Qualified Code(s): E03.9 - Hypothyroidism, unspecified (11) CHARISSE - Plan He is not weanable at this time. Renal function appears to be plateau. Pt remains critical ill. I have updated his son Fran, I would like to continue with aggressive cares at this point appreciate palliative care team and specialists. Follow AM labs. consider PLT transfusion if drop below 10k or evidence of bleeding.
--- NOTE | 2021-01-03 19:08 | PRG ---
DATE OF SERVICE: 01/03/2021 SUBJECTIVE: The patient is noted with the following vital signs. OBJECTIVE: VITAL SIGNS: Blood pressure 138/66 with a heart rate of 66, respiratory rate of 19, and O2 saturations are 98%. HEENT: Unremarkable. CARDIOVASCULAR SYSTEM: First and second heart sounds were heard. RESPIRATORY SYSTEM: Revealed vented sounds. DIGESTIVE SYSTEM: Revealed a benign abdomen. EXTREMITIES: No peripheral edema. LABORATORY INVESTIGATION: Showed a platelet down to 12,000 and hemoglobin of 8.4. Chemistry showed a sodium of 148 and creatinine 1.95 with BUN of 116. IMPRESSION: 1. Hypernatremia in the context of free water deficit. 2. Profound azotemia/acute on chronic kidney disease. 3. Cardiopulmonary failure. 4. Metabolic acidosis, resolved. PLAN: 1. Discontinue bicarb supplementation and this patient on free water repletion. 2. Renally dose all medications. 3. Monitor the sodium level and replete free water accordingly. 4. Further management to be dependent on the clinical course. Job ID: [id number]
[2021-01-04] MEDS: Albuterol 200 PUFF (6.7GM INHALER) INH SCH ×4 (01:46→19:15)
[2021-01-04] MEDS: Propofol 1,000 MG/100 ML VIAL IV PRN (04:58)
[2021-01-04] MEDS: Levothyroxine Sodium 112 MCG TAB PO SCH (05:00)
[2021-01-04] MEDS: Dextrose 5% in Water 1,000 ML IV SCH ×3 (05:10→18:01)
[2021-01-04] MEDS: HumaLOG 300 UNITS/3 ML VIAL SC PRN (05:42)
[2021-01-04 05:56] LABS: Anisocytosis SLIGHT = 6-15 cells (100X) (0-5/hpf); Band 25 % (5-11); Hemoglobin 8.5 g/dL (14.0-18.0); Lymphocytes 2 % (21-51); Macrocytosis SLIGHT = 6-15 cells (100X) (0-5/hpf); Mean Corpuscular Hemoglobin 36.8 pg (27.0-31.0); Monocytes 19 % (0-10); Myelocyte 5 % (0-0); Neutrophil 49 % (42-75); Platelet Morphology Comment Appears Decreased; RBC Distribution Width 19.1 % (11.5-14.5); White Blood Cell (WBC) Count 13.1 thou/uL (4.8-10.8)
[2021-01-04 05:59] LABS: MDiff Complete? YES; Mean Platelet Volume 12.2 fL (7.4-10.4); Platelet Count 13 thou/uL (130-400)
[2021-01-04 06:05] LABS: Anion Gap 17 mmol/L (10-20); BUN (Urea Nitrogen) 124 mg/dL (8.4-25.7); Calc. Creatinine Clearance 30 mL/min (70-130); Calcium 8.3 mg/dL (7.8-10.44); Carbon Dioxide 20 mmol/L (23-31); Chloride 111 mmol/L (98-107); Glucose 211 mg/dL (83-110); Sodium 143 mmol/L (136-145)
--- NOTE | 2021-01-04 08:14 | RAD ---
PORTABLE CHEST: HISTORY: Pneumonia. CCU followup. COMPARISON: 01/03/2021. FINDINGS: Right basilar atelectasis and consolidation opacifies the right lung base. Evidence of associated ri ght effusion. Cardiomegaly and mild vascular engorgement. Old right rib fractures. Pacemaker, AICD leads, and NG tube unchanged. The opacity in the left upper lung on yesterday's film is not as apparent today. Otherwise, no significant interval change. POS: [facility]
[2021-01-04] MEDS: Ascorbic Acid 500 mg Chewable Tablet PO SCH (08:30)
[2021-01-04] MEDS: Pancrelipase DR 12,000 1 CAP PO SCH ×2 (08:31→21:16)
[2021-01-04] MEDS: Dexamethasone 4 mg/ml Vial SLOW IVP SCH ×2 (08:31→21:16)
[2021-01-04] MEDS: Zinc Sulfate 220 MG CAP PO SCH (08:31)
[2021-01-04] MEDS: Pantoprazole 40 MG GRANULES PACKET PER TUBE SCH (08:31)
[2021-01-04] MEDS: NPH, Human Insulin Isophane 300 UNIT/3 ML VIAL SC SCH ×2 (10:09→21:40)
--- NOTE | 2021-01-04 10:55 | PRG ---
DATE OF SERVICE: 01/04/2021 SUBJECTIVE: Jack Angelo looks weaker each day that I round on him. OBJECTIVE: VITAL SIGNS: His heart rate is in 80s, blood pressure 130/64, oximetry is in the 90s. LUNGS: Remarkable for coarse equal breath sounds. HEART: Regular rhythm. ABDOMEN: Soft. EXTREMITIES: Without edema. LABORATORY DATA: White count 13.1, hemoglobin 8.5 platelets 13,000. Sodium 143, potassium 5, chloride 111, bicarb 20, BUN 124, creatinine 1.86. IMPRESSION: 1. Respiratory failure. 2. Severe weakness and deconditioning with signs of diaphragm weakness on exam. 3. COVID pneumonia. 4. History of bladder cancer. 5. Pancytopenia. I had the Hematology review the smear and they think this is more related to the COVID-19. 6. History of cardiomyopathy. 7. History of defibrillator. 8. Diabetes. 9. Hypertension. I do not feel he will survive this in the long haul, even with a tracheostomy and a feeding tube. Apparently, the son was supposed to meet with Palliative Care this morning and canceled the meeting. Job ID: [id number]
[2021-01-04] MEDS ORDERED: Fentanyl CADD 100 ML ONE (13:58)
[2021-01-04] MEDS: Fentanyl CADD 100 ML IV SCH (14:05)
--- NOTE | 2021-01-04 18:50 | PDOC.HOSPP ---
- Subjective Subjective: Patient was seen examined at bedside. Patient remains intubated. No significant changes for the past several days. Unable to wean. Discussed with palliative care team. We spoke to have a family meeting today. However this was canceled. His creatinine appears to be stable. He is platelet trend up slightly. However, patient remained clinically ill. He also had multiple comorbidity. It is unlikely that he will survive this admission. Shooter Helper recommended against tracheotomy as well as PEG. I have attempted to call family member today, however went straight to his voicemail. - Objective Vital Signs & Weight: Vital Signs (12 hours) Temp Pulse Resp BP 01/04/21 18:00 12 01/04/21 16:00 98.9 F 15 01/04/21 15:16 73 141/66 H 01/04/21 14:00 19 01/04/21 12:00 98.0 F 14 01/04/21 11:28 73 136/66 01/04/21 10:00 16 01/04/21 08:00 98.7 F 17 01/04/21 06:49 80 92/49 L Weight Admit Weight 164 lb Weight 177 lb 4.026 oz Most Recent Monitor Data Heart Rate from ECG 68 NIBP 132/62 NIBP BP-Mean 85 Respiration from ECG 12 SpO2 99 I&O: 01/03/21 01/04/21 01/05/21 06:59 06:59 06:59 Intake Total 2823.7 4069.0 1988.5 Output Total 980 1430 595 Balance 1843.7 2639.0 1393.5 Result Diagrams: 01/04/21 04:05 01/04/21 04:05 Additional Labs: Accuchecks 01/04/21 01/04/21 01/04/21 15:50 10:12 05:28 POC Glucose 133 H 167 H 204 H 01/03/21 20:51 POC Glucose 145 H Radiology Reviewed by me: Yes EKG Reviewed by me: Yes Hospitalist ROS - Medication Medications: Active Medications Generic Name Dose Route Start Last Admin Trade Name Freq PRN Reason Stop Dose Admin Albuterol Sulfate 2 puff 12/23/20 21:05 12/25/20 01:34 Albuterol 200 Puff (6.7gm Inhaler) INH 2 puff [id number] PRN Administration Wheezing Albuterol Sulfate 2 puff 12/24/20 13:00 01/04/21 11:30 Albuterol 200 Puff (6.7gm Inhaler) INH 2 puff [id number] Administration Lipase/Protease/Amylase 1 cap 12/24/20 09:00 01/04/21 08:[address] 12,000 1 Cap PO 1 cap BID KO Administration Ascorbic Acid 1,000 mg 12/23/20 09:00 01/04/21 08:30 Ascorbic Acid 500 Mg Chewable Tablet PO 1,000 mg DAILY KO Administration Dexamethasone 6 mg 12/26/20 21:00 01/04/21 08:31 Dexamethasone 4 Mg/Ml Vial SLOW IVP 6 mg BID KO Administration Doxycycline Hyclate 100 mg/ 100 mls @ 100 mls/hr 12/26/20 17:00 01/04/21 17:37 Sodium Chloride IVPB 01/05/21 05:59 100 mls 0500,1700 KO Administration Fentanyl 100 mls @ 0 mls/hr 12/27/20 16:15 01/04/21 14:05 Fentanyl Cadd IV 01/26/21 16:15 100 mls INF KO Administration Protocol Per Protocol Norepinephrine Bitartrate 250 mls @ 0 mls/hr 12/27/20 21:30 12/31/20 08:17 Levophed IVPB 250 mls INF KO Administration Protocol Titrate Dextrose/Water 1,000 mls @ 100 mls/hr 01/03/21 10:15 01/04/21 18:01 D5w IV 1,000 mls .Q10H KO Administration Insulin Human Lispro 0 units 12/23/20 21:15 12/27/20 22:11 Humalog 300 Units/3 Ml Vial SC 2 unit .BEDTIME SLIDING SC PRN Administration Bedtime Correctional Scale Insulin Human Lispro 0 units 12/24/20 07:52 01/04/21 05:42 Humalog 300 Units/3 Ml Vial SC 6 unit .AGGRESSIVE SLIDING PRN Administration Aggressive Correctional Scale Insulin Human NPH 20 unit 12/30/20 21:00 01/04/21 10:09 Nph, Human Insulin Isophane 300 Unit/3 Ml Vial SC 20 unit BID KO Administration Lactulose 20 gm 12/24/20 09:00 01/04/21 08:30 Lactulose 20 Gm/30 Ml Udcup PO 20 gm DAILY KO Administration Levothyroxine Sodium 112 mcg 12/25/20 06:00 01/04/21 05:00 Levothyroxine Sodium 112 Mcg Tab PO 112 mcg 0600 KO Administration Pantoprazole Sodium 40 mg 12/28/20 09:00 01/04/21 08:31 Pantoprazole 40 Mg Granules Packet PER TUBE 40 mg QAM KO Administration Propofol 1,000 mg 12/27/20 16:15 01/04/21 04:58 Propofol 1,000 Mg/100 Ml Vial IV 01/26/21 16:15 1,000 mg INF PRN Administration TO ACHIEVE GOAL RASS Protocol Sodium Chloride 10 ml 12/24/20 21:00 01/04/21 08:32 Flush - Normal Saline 10 Ml Syringe IVF 10 ml Q12HR KO Administration Zinc Sulfate 220 mg 12/23/20 09:00 01/04/21 08:31 Zinc Sulfate 220 Mg Cap PO 220 mg DAILY KO Administration Hospitalist Exam Vitals: Vital Signs (12 hours) Temp Pulse Resp BP 01/04/21 18:00 12 01/04/21 16:00 98.9 F 15 01/04/21 15:16 73 141/66 H 01/04/21 14:00 19 01/04/21 12:00 98.0 F 14 01/04/21 11:28 73 136/66 01/04/21 10:00 16 01/04/21 08:00 98.7 F 17 01/04/21 06:49 80 92/49 L Weight Admit Weight 164 lb Weight 177 lb 4.026 oz Most Recent Monitor Data Heart Rate from ECG 68 NIBP 132/62 NIBP BP-Mean 85 Respiration from ECG 12 SpO2 99 General - other findings: Intubated. Eye: PERRL ENT: normocephalic atraumatic Neck: supple Heart: RRR Respiratory: CTAB, rhonchi Gastrointestinal: soft, non-tender Extremities: no cyanosis Skin: normal turgor Neurological - other findings: Patient remains intubated. Psychiatric: normal affect, normal behavior, A&O x 3 Hosp A/P - Plan (1) Acute respiratory failure with hypoxemia Code(s): J96.01 - ACUTE RESPIRATORY FAILURE WITH HYPOXIA Status: Acute (2) Cardiomyopathy Code(s): I42.9 - CARDIOMYOPATHY, UNSPECIFIED Status: Acute Qualifiers: Cardiomyopathy type: unspecified Qualified Code(s): I42.9 - Cardiomyopathy, unspecified (3) Pneumonia due to COVID-19 virus Code(s): U07.1 - COVID-19; J12.82 - PNEUMONIA DUE TO CORONAVIRUS DISEASE 2019 Status: Acute (4) Chronic obstructive pulmonary disease Status: Chronic Qualifiers: Emphysema type: unspecified (5) Cirrhosis Code(s): K74.60 - UNSPECIFIED CIRRHOSIS OF LIVER Status: Chronic Qualifiers: Hepatic cirrhosis type: unspecified hepatic cirrhosis (6) Congestive heart failure Code(s): I50.9 - HEART FAILURE, UNSPECIFIED Status: Chronic (7) Diabetes mellitus Code(s): E11.9 - TYPE 2 DIABETES MELLITUS WITHOUT COMPLICATIONS Status: Chronic Qualifiers: Diabetes mellitus type: type 2 Diabetes mellitus senior living insulin use: with assistant terminal manager use Diabetes mellitus complication status: without complication Qualified Code(s): E11.9 - Type 2 diabetes mellitus without complications; Z79.4 - USP (current) use of insulin (8) Dyslipidemia Code(s): E78.5 - HYPERLIPIDEMIA, UNSPECIFIED Status: Chronic (9) Hypertension Code(s): I10 - ESSENTIAL (PRIMARY) HYPERTENSION Status: Chronic Qualifiers: Hypertension type: essential hypertension Qualified Code(s): I10 - Essenti al (primary) hypertension (10) Hypothyroid Code(s): E03.9 - HYPOTHYROIDISM, UNSPECIFIED Status: Chronic Qualifiers: Hypothyroidism type: unspecified Qualified Code(s): E03.9 - Hypothyroidism, unspecified (11) CHARISSE - Plan Patient is an unfortunate 85 years old gentleman who has significant past medical history of bladder cancer, carotid artery disease, CAD with status post AICD placement, diabetes, hypothyroidism, who was presented to the ED with worsening dyspnea. Additionally, he was recently admitted for femoral neck fracture due to status post mechanical fall, he was discharged to rehab on December 09, 2020. While there, he developed cough and worsening dyspnea. He was found hypoxic, with oxygen was in the 70s. He was subsequently sent to the ED for further evaluation. Initial work-up, including chest x-ray show multifocal infiltrate consistent with Covid pneumonia. CTA was negative for PE. During his hospitalization, his respiratory status continue deteriorate and ultimately intubated on 12/27/2020. Acute hypoxic respiratory failure secondary to COVID-19 pneumonia -Patient remained intubated since 12/27/2020. Continue Decadron twice daily, empiric IV antibiotic with doxycycline. Continue vitamin C/D/zinc. -Patient has multiple comorbidities, poor prognosis overall. Family member would like to continue with aggressive care. Palliative care is following. Pneumonia due to COVID-19 -mgt as above CHARISSE -Cr plateau. Nephrology is following. Follow BMP Hypernatremia -resolved Severe thrombocytopenia -Dr. Zavala d/w hematology thought related to COVID. cont supportive cares. Transfuse if PLT<10K or evidence of active bleeding -Cefepime was discontinued. Congestive diastolic heart failure with status post AICD -EF 55% on last Echo 12/06/20. Follow clinically no evidence of decompensation Diabetes type 2 -continue current regimen, NPH. ISS. Monitor BG and adjust as needed Hypertension -Patient was hypotensive, will require Levophed. Hypothyroidism -Continue levothyroxine.
--- NOTE | 2021-01-04 19:46 | PRG ---
DATE OF SERVICE: 01/04/2021 OBJECTIVE: VITAL SIGNS: The patient noted with following vital signs; blood pressure 116/59, pulse 71, FiO2 of 40, blood pressure 132/62. HEENT: Remarkable for endotracheal tube in place. CARDIOVASCULAR SYSTEM: First and second heart sounds were heard. RESPIRATORY SYSTEM: Revealed vented sounds. DIGESTIVE SYSTEM: Revealed a benign abdomen with positive bowel sounds. LABORATORY INVESTIGATION: Showed a platelets of 13,000, hemoglobin 8.3. Chemistry showed a creatinine of 1.86, BUN of 124, with a bicarb of 20, sodium 143. IMPRESSION: 1. Acute kidney injury, seems to be stable. 2. Hypernatremia, improving status post free water repletion. 3. Profound azotemia. PLAN: 1. We will continue with free water repletion. 2. Continue to avoid potentially nephrotoxic agents, and continue other renal supportive measures. 3. Further management to be dependent on the clinical course. Job ID: [id number]
[2021-01-05 05:07] LABS: Anion Gap 15 mmol/L (10-20); Calc. Creatinine Clearance 30 mL/min (70-130); Calcium 8.3 mg/dL (7.8-10.44); Carbon Dioxide 22 mmol/L (23-31); Chloride 107 mmol/L (98-107); Glucose 154 mg/dL (83-110); Potassium 5.1 mmol/L (3.5-5.1); Sodium 139 mmol/L (136-145)
[2021-01-05 05:18] LABS: BUN (Urea Nitrogen) 126 mg/dL (8.4-25.7)
[2021-01-05 05:22] LABS: Platelet Count 22 thou/uL (130-400)
[2021-01-05] MEDS: Levothyroxine Sodium 112 MCG TAB PO SCH (05:34)
[2021-01-05] MEDS: Dextrose 5% in Water 1,000 ML IV SCH ×3 (05:43→21:09)
[2021-01-05 06:15] LABS: Band 20 % (5-11); Hemoglobin 8.5 g/dL (14.0-18.0); Lymphocytes 4 % (21-51); MDiff Complete? YES; Mean Corpuscular HGB CONC 33.2 g/dL (32.0-36.0); Mean Corpuscular Hemoglobin 37.3 pg (27.0-31.0); Mean Platelet Volume 12.5 fL (7.4-10.4); Metamyelocyte 3 % (0-0); Monocytes 35 % (0-10); Neutrophil 38 % (42-75); Platelet Morphology Comment Appears Decreased; Red Blood Cell (RBC) Count 2.27 mill/uL (4.70-6.10); White Blood Cell (WBC) Count 18.2 thou/uL (4.8-10.8)
[2021-01-05] MEDS: Albuterol 200 PUFF (6.7GM INHALER) INH SCH ×4 (07:00→18:47)
[2021-01-05] MEDS: Pantoprazole 40 MG GRANULES PACKET PER TUBE SCH (08:02)
[2021-01-05] MEDS: Pancrelipase DR 12,000 1 CAP PO SCH ×2 (08:02→21:52)
[2021-01-05] MEDS: Zinc Sulfate 220 MG CAP PO SCH (08:02)
[2021-01-05] MEDS: Ascorbic Acid 500 mg Chewable Tablet PO SCH (08:03)
[2021-01-05] MEDS: Dexamethasone 4 mg/ml Vial SLOW IVP SCH ×2 (08:03→21:52)
[2021-01-05] MEDS: NPH, Human Insulin Isophane 300 UNIT/3 ML VIAL SC SCH ×2 (09:36→21:53)
--- NOTE | 2021-01-05 09:46 | RAD ---
CHEST 1 VIEW: Date: 01/05/2021 HISTORY: Pneumonia. COMPARISON: 01/03/2021, 01/04/2021. FINDINGS: Stable left-sided defibrillator, atherosclerosis, sternotomy wires, and nasogastric tube. There are b ibasilar pleural and parenchymal changes. Stable cardiomegaly. No pneumothorax. Old right rib fractur es are redemonstrated. IMPRESSION: No significant interval change. Stable congestive heart failure. Superimposed pneumonia in the right lung base cannot be excluded. POS: [facility]
--- NOTE | 2021-01-05 11:45 | PRG ---
DATE OF SERVICE: 01/05/2021 SUBJECTIVE: Jack Angleo remains mechanically ventilated. He has obvious signs of severe weakness. OBJECTIVE: VITAL SIGNS: Heart rates in the 60s, blood pressure is 122/63, respiratory rates in the teens. LUNGS: He has coarse rhonchi bilaterally. HEART: Regular rhythm. ABDOMEN: Soft. EXTREMITIES: Without asymmetry. LABORATORY DATA: White count 18.2, hemoglobin 8.5, platelets 22,000. Sodium 139, potassium 5.1, chloride 107, bicarb 22, BUN 126, creatinine 2.07. Intake and outputs, positive . IMPRESSION: 1. COVID pneumonia with respiratory failure. 2. Progressive renal failure in spite of a positive fluid balance. 3. Extreme deconditioning and weakness. It is my opinion that he cannot possibly survive this to recover at 85 years of age, even with a trach and a PEG. His pancytopenia persists. He is also encephalopathic, likely secondary to the viral illness. Job ID: [id number]
[2021-01-05] MEDS ORDERED: Fentanyl CADD 100 ML ONE (13:55)
[2021-01-05] MEDS: Fentanyl CADD 100 ML IV SCH (14:00)
[2021-01-05] MEDS: Propofol 1,000 MG/100 ML VIAL IV PRN (15:30)
--- NOTE | 2021-01-05 18:42 | PDOC.HOSPP ---
- Subjective Subjective: Patient was seen examined at bedside. No change in vent management. Pulmonology is following. Renal appears to be worsening. We had a long discussion with palliative care team and family members including Ms. Guevara, and his son, Fran. He appeared to be irritable, when we talked about goals of cares. He also asked about start patient on ivermectin, I explained to him that is not available at this facility, and is currently not FDA approved, as I have discussed with ID as well. Chest x-rays no change. - Objective Vital Signs & Weight: Vital Signs (12 hours) Temp Pulse Resp BP 01/05/21 18:00 19 01/05/21 17:13 68 01/05/21 16:00 97.3 F L 18 01/05/21 14:00 24 H 01/05/21 12:00 98.6 F 14 01/05/21 10:56 69 118/65 01/05/21 10:00 13 01/05/21 08:00 98.5 F 14 01/05/21 07:01 72 130/60 Weight Admit Weight 164 lb Weight 2.815 oz Most Recent Monitor Data Heart Rate from ECG 77 NIBP 135/65 NIBP BP-Mean 88 Respiration from ECG 14 SpO2 98 I&O: 01/04/21 01/05/21 01/06/21 06:59 06:59 06:59 Intake Total 4069.0 4076.9 1791.8 Output Total 1430 1405 690 Balance 2639.0 2671.9 1101.8 Result Diagrams: 01/05/21 04:00 01/05/21 04:00 Additional Labs: Accuchecks 01/05/21 01/05/21 01/05/21 15:48 09:36 04:00 POC Glucose 149 H 122 H 140 H 01/04/21 21:38 POC Glucose 140 H Radiology Reviewed by me: Yes EKG Reviewed by me: Yes Hospitalist ROS - Medication Medications: Active Medications Generic Name Dose Route Start Last Admin Trade Name Freq PRN Reason Stop Dose Admin Albuterol Sulfate 2 puff 12/23/20 21:05 12/25/20 01:34 Albuterol 200 Puff (6.7gm Inhaler) INH 2 puff [id number] PRN Administration Wheezing Albuterol Sulfate 2 puff 12/24/20 13:00 01/05/21 13:50 Albuterol 200 Puff (6.7gm Inhaler) INH 2 puff [id number] KO Administration Lipase/Protease/Amylase 1 cap 12/24/20 09:00 01/05/21 08:[address] 12,000 1 Cap PO 1 cap BID KO Administration Ascorbic Acid 1,000 mg 12/23/20 09:00 01/05/21 08:03 Ascorbic Acid 500 Mg Chewable Tablet PO 1,000 mg DAILY KO Administration Dexamethasone 6 mg 12/26/20 21:00 01/05/21 08:03 Dexamethasone 4 Mg/Ml Vial SLOW IVP 6 mg BID KO Administration Fentanyl 100 mls @ 0 mls/hr 12/27/20 16:15 01/05/21 14:00 Fentanyl Cadd IV 01/26/21 16:15 100 mls INF KO Administration Protocol Per Protocol Norepinephrine Bitartrate 250 mls @ 0 mls/hr 12/27/20 21:30 12/31/20 08:17 Levophed IVPB 250 mls INF KO Administration Protocol Titrate Dextrose/Water 1,000 mls @ 100 mls/hr 01/03/21 10:15 01/05/21 15:30 D5w IV 1,000 mls .Q10H KO Administration Insulin Human Lispro 0 units 12/23/20 21:15 12/27/20 22:11 Humalog 300 Units/3 Ml Vial SC 2 unit .BEDTIME SLIDING SC PRN Administration Bedtime Correctional Scale Insulin Human Lispro 0 units 12/24/20 07:52 01/04/21 05:42 Humalog 300 Units/3 Ml Vial SC 6 unit .AGGRESSIVE SLIDING PRN Administration Aggressive Correctional Scale Insulin Human NPH 20 unit 12/30/20 21:00 01/05/21 09:36 Nph, Human Insulin Isophane 300 Unit/3 Ml Vial SC 20 unit BID KO Administration Lactulose 20 gm 12/24/20 09:00 01/05/21 08:03 Lactulose 20 Gm/30 Ml Udcup PO 20 gm DAILY KO Administration Levothyroxine Sodium 112 mcg 12/25/20 06:00 01/05/21 05:34 Levothyroxine Sodium 112 Mcg Tab PO 112 mcg 0600 KO Administration Pantoprazole Sodium 40 mg 12/28/20 09:00 01/05/21 08:02 Pantoprazole 40 Mg Granules Packet PER TUBE 40 mg QAM KO Administration Propofol 1,000 mg 12/27/20 16:15 01/05/21 15:30 Propofol 1,000 Mg/100 Ml Vial IV 01/26/21 16:15 1,000 mg INF PRN Administration TO ACHIEVE GOAL RASS Protocol Sodium Chloride 10 ml 12/24/20 21:00 01/05/21 08:03 Flush - Normal Saline 10 Ml Syringe IVF 10 ml Q12HR KO Administration Zinc Sulfate 220 mg 12/23/20 09:00 01/05/21 08:02 Zinc Sulfate 220 Mg Cap PO 220 mg DAILY KO Administration Hospitalist Exam Vitals: Vital Signs (12 hours) Temp Pulse Resp BP 01/05/21 18:00 19 01/05/21 17:13 68 01/05/21 16:00 97.3 F L 18 01/05/21 14:00 24 H 01/05/21 12:00 98.6 F 14 01/05/21 10:56 69 118/65 01/05/21 10:00 13 01/05/21 08:00 98.5 F 14 01/05/21 07:01 72 130/60 Weight Admit Weight 164 lb Weight 2.815 oz Most Recent Monitor Data Heart Rate from ECG 77 NIBP 135/65 NIBP BP-Mean 88 Respiration from ECG 14 SpO2 98 General Appearance: NAD General - other findings: Patient remains intubated Eye: PERRL ENT: normocephalic atraumatic Neck: supple Heart: RRR Respiratory: rhonchi Gastrointestinal: soft Extremities: no cyanosis Skin: normal turgor Neurological - other findings: Patient remains intubated Hosp A/P - Plan (1) Acute respiratory failure with hypoxemia Code(s): J96.01 - ACUTE RESPIRATORY FAILURE WITH HYPOXIA Status: Acute (2) Cardiomyopathy Code(s): I42.9 - CARDIOMYOPATHY, UNSPECIFIED Status: Acute Qualifiers: Cardiomyopathy type: unspecified Qualified Code(s): I42.9 - Cardiomyopathy, unspecified (3) Pneumonia due to COVID-19 virus Code(s): U07.1 - COVID-19; J12.82 - PNEUMONIA DUE TO CORONAVIRUS DISEASE 2019 Status: Acute (4) Chronic obstructive pulmonary disease Status: Chronic Qualifiers: Emphysema type: unspecified (5) Cirrhosis Code(s): K74.60 - UNSPECIFIED CIRRHOSIS OF LIVER Status: Chronic Qualifiers: Hepatic cirrhosis type: unspecified hepatic cirrhosis (6) Congestive heart failure Code(s): I50.9 - HEART FAILURE, UNSPECIFIED Status: Chronic (7) Diabetes mellitus Code(s): E11.9 - TYPE 2 DIABETES MELLITUS WITHOUT COMPLICATIONS Status: Chronic Qualifiers: Diabetes mellitus type: type 2 Diabetes mellitus long filler cigar roller machine insulin use: w ith long filler cigar roller machine use Diabetes mellitus complication status: without complication Qualified Code(s): E11.9 - Type 2 diabetes mellitus without complications; Z79.4 - skilled nursing (current) use of insulin (8) Dyslipidemia Code(s): E78.5 - HYPERLIPIDEMIA, UNSPECIFIED Status: Chronic (9) Hypertension Code(s): I10 - ESSENTIAL (PRIMARY) HYPERTENSION Status: Chronic Qualifiers: Hypertension type: essential hypertension Qualified Code(s): I10 - Essential (primary) hypertension (10) Hypothyroid Code(s): E03.9 - HYPOTHYROIDISM, UNSPECIFIED Status: Chronic Qualifiers: Hypothyroidism type: unspecified Qualified Code(s): E03.9 - Hypothyroidism, unspecified (11) CHARISSE - Plan Patient is an unfortunate 85 years old gentleman who has significant past medical history of bladder cancer, carotid artery disease, CAD with status post AICD placement, diabetes, hypothyroidism, who was presented to the ED with worsening dyspnea. Additionally, he was recently admitted for femoral neck fracture due to status post mechanical fall, he was discharged to rehab on December 09, 2020. While there, he developed cough and worsening dyspnea. He was found hypoxic, with oxygen was in the 70s. He was subsequently sent to the ED for further evaluation. Initial work-up, including chest x-ray show multifocal infiltrate consistent with Covid pneumonia. CTA was negative for PE. During his hospitalization, his respiratory status continue deteriorate and ultimately intubated on 12/27/2020. Acute hypoxic respiratory failure secondary to COVID-19 pneumonia -Patient remained intubated since 12/27/2020. Continue Decadron twice daily, empiric IV antibiotic with doxycycline. Continue vitamin C/D/zinc. -Patient has multiple comorbidities, poor prognosis overall. Family member would like to continue with aggressive cares. -Code changed to DNR. Had a family meeting with PC, pt's son, Fran and Mrs Guevara. His son appeared irritable and unrealistic about his overall condition. He would like to continue with aggressive cares. -Appreciate Pulmonology input and Palliative care Pneumonia due to COVID-19 -mgt as above CHARISSE -Cr plateau. Nephrology is following. Follow BMP Hypernatremia -resolved Severe thrombocytopenia -Dr. Zavala d/w hematology thought related to COVID. cont supportive cares. Transfuse if PLT<10K or evidence of active bleeding -Cefepime was discontinued. Congestive diastolic heart failure with status post AICD -EF 55% on last Echo 12/06/20. Follow clinically no evidence of decompensation Diabetes type 2 -continue current regimen, NPH. ISS. Monitor BG and adjust as needed Hypertension -Patient was hypotensive, will require Levophed. Hypothyroidism -Continue levothyroxine.
--- NOTE | 2021-01-05 19:43 | PRG ---
DATE OF SERVICE: 01/05/2021 SUBJECTIVE: The patient noted with the following vital signs. OBJECTIVE: VITAL SIGNS: Temperature pulse of , respiratory rate of 19, blood pressure 80/65. HEENT: Remarkable for endotracheal tube in place. CARDIOVASCULAR SYSTEM: First and second heart sounds were heard. RESPIRATORY SYSTEM: Revealed vented sounds. DIGESTIVE SYSTEM: Revealed a benign abdomen. EXTREMITIES: No peripheral edema. LABORATORY INVESTIGATION: Showed platelets of 22,000. Chemistry showed a creatinine of 2.07, BUN of 126, sodium of 139. IMPRESSION: 1. Hypernatremia, this seems to be improved. 2. Worsening azotemia. 3. Acute on chronic kidney disease. PLAN: 1. We will begin to deescalate the free water supplementation. 2. Continue other renal supportive measures. 3. Further management will be dependent on the clinical course. Job ID: [id number]
[2021-01-06] MEDS: Albuterol 200 PUFF (6.7GM INHALER) INH SCH ×4 (00:36→18:32)
[2021-01-06 04:29] LABS: Anion Gap 17 mmol/L (10-20); Calc. Creatinine Clearance 0 mL/min (70-130); Calcium 8.6 mg/dL (7.8-10.44); Carbon Dioxide 19 mmol/L (23-31); Chloride 104 mmol/L (98-107); Glucose 260 mg/dL (83-110); Potassium 5.4 mmol/L (3.5-5.1); Sodium 135 mmol/L (136-145)
[2021-01-06 04:36] LABS: Band 23 % (5-11); Hemoglobin 8.8 g/dL (14.0-18.0); Hypochromia SLIGHT = 6-15 cells (100X) (0-5/hpf); Lymphocytes 8 % (21-51); MDiff Complete? YES; Macrocytosis SLIGHT = 6-15 cells (100X) (0-5/hpf); Mean Corpuscular HGB CONC 32.2 g/dL (32.0-36.0); Mean Corpuscular Hemoglobin 35.7 pg (27.0-31.0); Mean Platelet Volume 14.2 fL (7.4-10.4); Monocytes 23 % (0-10); Neutrophil 46 % (42-75); Nucleated RBC 1 % (0); Platelet Count 14 thou/uL (130-400); Platelet Morphology Comment Appears Decreased; RBC Distribution Width 19.3 % (11.5-14.5); Red Blood Cell (RBC) Count 2.46 mill/uL (4.70-6.10); White Blood Cell (WBC) Count 24.1 thou/uL (4.8-10.8)
[2021-01-06 04:41] LABS: BUN (Urea Nitrogen) 137 mg/dL (8.4-25.7)
[2021-01-06] MEDS: HumaLOG 300 UNITS/3 ML VIAL SC PRN ×3 (05:10→15:08)
[2021-01-06] MEDS: Levothyroxine Sodium 112 MCG TAB PO SCH (05:58)
--- NOTE | 2021-01-06 09:14 | RAD ---
CHEST 1 VIEW: Date: 01/06/2021 INDICATION: History of pneumonia. COMPARISON: Prior exam dated 01/05/2021. IMPRESSION: Scattered air space disease is stable. No pneumothorax is evident. Patient remains intubated with gas tric catheter placement. AICD is unchanged. There are bilateral total shoulder replacements. There ar e small bilateral pleural effusions. No pneumothorax. POS: BH
[2021-01-06] MEDS: Zinc Sulfate 220 MG CAP PO SCH (09:42)
[2021-01-06] MEDS: Ascorbic Acid 500 mg Chewable Tablet PO SCH (09:42)
[2021-01-06] MEDS: Dexamethasone 4 mg/ml Vial SLOW IVP SCH ×2 (09:42→21:20)
[2021-01-06] MEDS: NPH, Human Insulin Isophane 300 UNIT/3 ML VIAL SC SCH ×2 (09:43→21:21)
[2021-01-06] MEDS: Pantoprazole 40 MG GRANULES PACKET PER TUBE SCH (11:12)
[2021-01-06] MEDS: Pancrelipase DR 12,000 1 CAP PO SCH ×2 (11:12→21:19)
--- NOTE | 2021-01-06 16:17 | PRG ---
DATE OF SERVICE: 01/06/2021 SUBJECTIVE: Jack Angelo remains mechanically ventilated. OBJECTIVE: VITAL SIGNS: FiO2 is 40%, respiratory rate in the 20s, heart rate blood pressure 136/66. GENERAL: He is extremely weak respiratory muscles by bedside exam. LUNGS: Remarkable for coarse equal breath sounds. HEART: Regular rhythm. ABDOMEN: Soft. EXTREMITIES: Without asymmetry. LABORATORY DATA: Chest x-ray is unchanged. IMPRESSION: Severe COVID pneumonia with respiratory failure. His gas exchange is not the problem. Muscle weakness is a problem. He also has pancytopenia and progressive renal dysfunction, which complicates this even more. He has severe underlying cardiomyopathy with a defibrillator in place and diabetes. I would not expect him to survive. Critical care time 30 min. Job ID: [id number] MTDD
[2021-01-06] MEDS ORDERED: Sodium Chloride 0.45% 1,000 ML IV SCH (16:45)
--- NOTE | 2021-01-06 18:59 | PDOC.HOSPP ---
- Subjective Encounter Date: 01/06/21 Encounter Time: 12:00 Subjective: is on vent, sedated - Objective Vital Signs & Weight: Vital Signs (12 hours) Temp Pulse Resp Pulse Ox 01/06/21 18:33 90 01/06/21 18:00 18 01/06/21 16:00 98.0 F 17 01/06/21 14:57 94 01/06/21 14:00 22 H 01/06/21 12:00 97.9 F 15 01/06/21 10:26 93 01/06/21 10:00 16 01/06/21 08:00 18 96 01/06/21 07:00 97.3 F L Weight Admit Weight 164 lb Weight 2.815 oz Most Recent Monitor Data Heart Rate from ECG 92 NIBP 165/88 NIBP BP-Mean 113 Respiration from ECG 21 SpO2 93 I&O: 01/05/21 01/06/21 01/07/21 06:59 06:59 06:59 Intake Total 4076.9 2908.5 1250 Output Total 1405 1165 560 Balance 2671.9 1743.5 690 Result Diagrams: 01/06/21 03:30 01/06/21 03:30 Additional Labs: Accuchecks 01/06/21 01/06/21 01/06/21 15:01 09:50 01:44 POC Glucose 207 H 215 H 207 H Hospitalist ROS - Medication Medications: Active Medications Generic Name Dose Route Start Last Admin Trade Name Freq PRN Reason Stop Dose Admin Albuterol Sulfate 2 puff 12/23/20 21:05 12/25/20 01:34 Albuterol 200 Puff (6.7gm Inhaler) INH 2 puff [id number] PRN Administration Wheezing Albuterol Sulfate 2 puff 12/24/20 13:00 01/06/21 18:32 Albuterol 200 Puff (6.7gm Inhaler) INH 2 puff [id number] Administration Lipase/Protease/Amylase 1 cap 12/24/20 09:00 01/06/21 11:[address] 12,000 1 Cap PO 1 cap BID KO Administration Ascorbic Acid 1,000 mg 12/23/20 09:00 01/06/21 09:42 Ascorbic Acid 500 Mg Chewable Tablet PO 1,000 mg DAILY KO Administration Dexamethasone 6 mg 12/26/20 21:00 01/06/21 09:42 Dexamethasone 4 Mg/Ml Vial SLOW IVP 6 mg BID KO Administration Norepinephrine Bitartrate 250 mls @ 0 mls/hr 12/27/20 21:30 12/31/20 08:17 Levophed IVPB 250 mls INF KO Administration Protocol Titrate Sodium Chloride 1,000 mls @ 50 mls/hr 01/06/21 16:45 01/06/21 16:41 1/2 Normal Saline IV 1,000 mls .Q20H KO Administration Insulin Human Lispro 0 units 12/23/20 21:15 01/06/21 05:10 Humalog 300 Units/3 Ml Vial SC 3 unit .BEDTIME SLIDING SC PRN Administration Bedtime Correctional Scale Insulin Human Lispro 0 units 12/24/20 07:52 01/06/21 15:08 Humalog 300 Units/3 Ml Vial SC 6 unit .AGGRESSIVE SLIDING PRN Administration Aggressive Correctional Scale Insulin Human NPH 20 unit 12/30/20 21:00 01/06/21 09:43 Nph, Human Insulin Isophane 300 Unit/3 Ml Vial SC 20 unit BID KO Administration Lactulose 20 gm 12/24/20 09:00 01/06/21 09:43 Lactulose 20 Gm/30 Ml Udcup PO 20 gm DAILY KO Administration Levothyroxine Sodium 112 mcg 12/25/20 06:00 01/06/21 05:58 Levothyroxine Sodium 112 Mcg Tab PO 112 mcg 0600 KO Administration Pantoprazole Sodium 40 mg 12/28/20 09:00 01/06/21 11:12 Pantoprazole 40 Mg Granules Packet PER TUBE 40 mg QAM KO Administration Propofol 1,000 mg 12/27/20 16:15 01/05/21 15:30 Propofol 1,000 Mg/100 Ml Vial IV 01/26/21 16:15 1,000 mg INF PRN Administration TO ACHIEVE GOAL RASS Protocol Sodium Chloride 10 ml 12/24/20 21:00 01/06/21 11:12 Flush - Normal Saline 10 Ml Syringe IVF 10 ml Q12HR KO Administration Zinc Sulfate 220 mg 12/23/20 09:00 01/06/21 09:42 Zinc Sulfate 220 Mg Cap PO 220 mg DAILY KO Administration Hospitalist Exam Vitals: Vital Signs (12 hours) Temp Pulse Resp Pulse Ox 01/06/21 18:33 90 01/06/21 18:00 18 01/06/21 16:00 98.0 F 17 01/06/21 14:57 94 01/06/21 14:00 22 H 01/06/21 12:00 97.9 F 15 01/06/21 10:26 93 01/06/21 10:00 16 01/06/21 08:00 18 96 01/06/21 07:00 97.3 F L Weight Admit Weight 164 lb Weight 2.815 oz Most Recent Monitor Data Heart Rate from ECG 92 NIBP 165/88 NIBP BP-Mean 113 Respiration from ECG 21 SpO2 93 General Appearance: ill appearing Eye: anicteric sclera ENT: no oropharyngeal lesions, dry oral mucosa Neck: supple, no JVD Heart: RRR, no murmur Respiratory: no wheezes, rales, rhonchi Gastrointestinal: soft, non-tender, non-distended, normal bowel sounds Extremities: no cyanosis, 1+ LE edema Extremities - other findings: left thigh surgical site is clean Neurological: cranial nerve grossly intact, no focal deficits Hosp A/P (1) Acute respiratory failure with hypoxia Code(s): J96.01 - ACUTE RESPIRATORY FAILURE WITH HYPOXIA Status: Acute (2) CHARISSE (acute kidney injury) Code(s): N17.9 - ACUTE KIDNEY FAILURE, UNSPECIFIED Status: Acute (3) Pneumonia due to COVID-19 virus Code(s): U07.1 - COVID-19; J12.82 - PNEUMONIA DUE TO CORONAVIRUS DISEASE 2019 Status: Acute (4) Metabolic acidosis Code(s): E87.2 - ACIDOSIS Status: Acute (5) Chronic diastolic heart failure Code(s): I50.32 - CHRONIC DIASTOLIC (CONGESTIVE) HEART FAILURE Status: Chronic (6) Atrial fibrillation Code(s): I48.91 - UNSPECIFIED ATRIAL FIBRILLATION Status: Chronic Qualifiers: Atrial fibrillation type: paroxysmal Qualified Code(s): I48.0 - Paroxysmal atrial fibrillation (7) Chronic obstructive pulmonary disease Status: Chronic Qualifiers: COPD type: chronic bronchitis Chronic bronchitis type: unspecified Qualified Code(s): J42 - Unspecified chronic bronchitis (8) Cirrhosis Code(s): K74.60 - UNSPECIFIED CIRRHOSIS OF LIVER Status: Chronic Qualifiers: Hepatic cirrhosis type: unspecified hepatic cirrhosis (9) Diabetes mellitus Code(s): E11.9 - TYPE 2 DIABETES MELLITUS WITHOUT COMPLICATIONS Status: Chronic Qualifiers: Diabetes mellitus type: type 2 Diabetes mellitus senior living insulin use: with terminal gauger supervisor use Diabetes mellitus complication status: without complication Qualified Code(s): E11.9 - Type 2 diabetes mellitus without complications; Z79.4 - middle or intermediate school principal (current) use of insulin (10) Dyslipidemia Code(s): E78.5 - HYPERLIPIDEMIA, UNSPECIFIED Status: Chronic (11) GERD (gastroesophageal reflux disease) Code(s): K21.9 - GASTRO-ESOPHAGEAL REFLUX DISEASE WITHOUT ESOPHAGITIS Status: Chronic Qualifiers: Esophagitis presence: esophagitis presence not specified Qualified Code(s): K21.9 - Gastro-esophageal reflux disease without esophagitis (12) Hypertension Code(s): I10 - ESSENTIAL (PRIMARY) HYPERTENSION Status: Chronic Qualifiers: Hypertension type: essential hypertension Qualified Code(s): I10 - Essential (primary) hypertension (13) Hypothyroid Code(s): E03.9 - HYPOTHYROIDISM, UNSPECIFIED Status: Chronic Qualifiers: Hypothyroidism type: unspecified Qualified Code(s): E03.9 - Hypothyroidism, unspecified (14) FTT (failure to thrive) in adult Status: Acute (15) Physical deconditioning Code(s): R53.81 - OTHER MALAISE Status: Acute (16) Moderate protein-calorie malnutrition Code(s): E44.0 - MODERATE PROTEIN-CALORIE MALNUTRITION Status: Acute - Plan got intubated on 12/27, hospitalized on 12/22, diagnosed with covid on 12/23. is on dexamethasone, alb inh, nph 20 u bid, protonix, synthroid, 1/2 ns, vit C, lactulose 20g daily for h/o cirrhosis lab is 2.7, bun/cr 137/2.1, hco3 is 19, crp is around 3, wbc is 24k with 23% bands (will send osullivan cultures and start empiric antibiotics due to bandemia), Was on doxy from 12/26 to 01/05, cefepime for 2 days from 12/26 to 12/28. recent femoral neck fracture with repair on left side, sutures are healing well has severe deconditioning, multiple med issues, poor prognosis unable to reach son Josh [phone] x1, or daughter [phone] x2 times over phone 01/06/2021
[2021-01-06] MEDS: Vancomycin 1 GM in Premix Bag 1 BAG IVPB SCH (21:20)
[2021-01-06] MEDS: Meropenem 500 MG in Sodium Chloride 0.9% 100 ML IVPB SCH (21:21)
--- NOTE | 2021-01-06 22:28 | PRG ---
DATE OF SERVICE: 01/06/2021 SUBJECTIVE: Patient noted with the following vital signs. OBJECTIVE: VITAL SIGNS: Blood pressure 165/88, pulse of 90 to 100. HEENT EXAMINATION: Remarkable for endotracheal tube in place. CARDIOVASCULAR SYSTEM: First and second heart sounds were heard. RESPIRATORY SYSTEM: Revealed vented sounds. DIGESTIVE SYSTEM: Revealed a benign abdomen. EXTREMITIES: No peripheral edema. LABORATORY INVESTIGATION: Showed a potassium of 5.4, bicarb of 19, BUN 137 with a creatinine of 2.12. IMPRESSION: 1. Acute on chronic kidney disease. 2. Profound azotemia. 3. Mild hyperkalemia with mild metabolic acidosis. PLAN: 1. Continue current renal supportive measures, hopefully the electrolytes, especially the hyperkalemia not to worsen. However, if this becomes the case, then renal replacement therapy might become indicated in this patient. 2. Further management to be dependent on the clinical course. 3. Discontinue free water as patient's sodium level has gone down to 135. Job ID: [id number]
[2021-01-07] MEDS: Albuterol 200 PUFF (6.7GM INHALER) INH SCH ×4 (01:52→18:52)
[2021-01-07 05:09] LABS: Hemoglobin 9.5 g/dL (14.0-18.0); Mean Corpuscular HGB CONC 31.8 g/dL (32.0-36.0); Mean Corpuscular Hemoglobin 34.8 pg (27.0-31.0); Mean Platelet Volume 13.7 fL (7.4-10.4); Platelet Count 16 thou/uL (130-400); RBC Distribution Width 19.7 % (11.5-14.5); Red Blood Cell (RBC) Count 2.73 mill/uL (4.70-6.10); White Blood Cell (WBC) Count 37.2 thou/uL (4.8-10.8)
[2021-01-07 05:21] LABS: Band 6 % (5-11); Lymphocytes 8 % (21-51); MDiff Complete? YES; Monocytes 20 % (0-10); Myelocyte 2 % (0-0); Neutrophil 64 % (42-75); Platelet Morphology Comment Appears Decreased
[2021-01-07 05:22] LABS: Anion Gap 17 mmol/L (10-20); Calc. Creatinine Clearance 30 mL/min (70-130); Carbon Dioxide 20 mmol/L (23-31); Chloride 103 mmol/L (98-107); Glucose 134 mg/dL (83-110); Potassium 5.1 mmol/L (3.5-5.1); Sodium 135 mmol/L (136-145)
[2021-01-07 05:34] LABS: BUN (Urea Nitrogen) 161 mg/dL (8.4-25.7)
[2021-01-07] MEDS: Levothyroxine Sodium 112 MCG TAB PO SCH (06:44)
[2021-01-07] MEDS: Pancrelipase DR 12,000 1 CAP PO SCH ×2 (09:02→23:00)
[2021-01-07] MEDS: Ascorbic Acid 500 mg Chewable Tablet PO SCH (09:03)
[2021-01-07] MEDS: Dexamethasone 4 mg/ml Vial SLOW IVP SCH ×2 (09:03→23:00)
[2021-01-07] MEDS: Zinc Sulfate 220 MG CAP PO SCH (09:03)
[2021-01-07] MEDS: Pantoprazole 40 MG GRANULES PACKET PER TUBE SCH (09:03)
--- NOTE | 2021-01-07 09:03 | RAD ---
CHEST 1 VIEW: Date: 01/07/2021 INDICATION: History of pneumonia. COMPARISON: Prior exam dated 01/06/2021. IMPRESSION: Patient remains intubated with gastric catheter placement and with a multilead AICD. The bilateral pn eumonia is stable. No definite pneumothorax is evident. There are bilateral total shoulder prostheses . POS: BH
[2021-01-07] MEDS: NPH, Human Insulin Isophane 300 UNIT/3 ML VIAL SC SCH ×2 (09:05→23:00)
[2021-01-07] MEDS: Meropenem 500 MG in Sodium Chloride 0.9% 100 ML IVPB SCH ×2 (11:25→23:01)
--- NOTE | 2021-01-07 14:18 | PRG ---
DATE OF SERVICE: 01/07/2021 SUBJECTIVE: Mr. Angelo is still extremely weak. I talked to his son en route, who is contemplating withdrawal of care. I advised against dialysis and his son agreed. OBJECTIVE: VITAL SIGNS: Blood pressure 123/60, heart rate is in the 90s, respiratory rates in the 20s. LUNGS: Unchanged. HEART: Unchanged. ABDOMEN: Unchanged. LABORATORY DATA: White count is 37, hemoglobin 9.5 platelets are 16. BUN 161, creatinine 2.18. IMPRESSION: Multiorgan failure associated with COVID. Family was to make a decision about withdrawal of care when they arrive. I have just received a call from the hospitalist, informing me that the son after seen his dad wanted to withdraw care for comfort. I feel this is totally appropriate. Job ID: [id number]
[2021-01-07] MEDS: Morphine 10 MG/ML VIAL SLOW IVP PRN ×3 (14:50→22:05)
--- NOTE | 2021-01-07 18:36 | PRG ---
DATE OF SERVICE: 01/07/2021 SUBJECTIVE: The patient is still intubated, noted with following vital signs, and not doing very well. OBJECTIVE: VITAL SIGNS: Blood pressure 107/64, heart rate of 92, respiratory rate of . HEENT: Remarkable for endotracheal tube in place. CARDIOVASCULAR SYSTEM: First and second heart sounds were heard. RESPIRATORY SYSTEM: Revealed vented sounds. IMPRESSION: 1. Acute kidney injury. 2. COVID pneumonitis resulted in #3. 3. Cardiopulmonary failure. PLAN: From all indication, the patient's prognosis is very poor and family seems to be leaning towards deescalation of care; therefore, we will hold off on planning towards dialysis of this patient. Job ID: [id number]
[2021-01-07] MEDS: Vancomycin 1 GM in Premix Bag 1 BAG IVPB SCH (23:01)
[2021-01-08 02:15] VITALS: BP 72/52; TEMP 97.8
[2021-01-08] MEDS: Dextrose 5% in Water 1,000 ML IV SCH (04:33)
--- NOTE | 2021-01-08 17:14 | PDOC.HOSPP ---
- Subjective Encounter Date: 01/07/21 Encounter Time: 13:00 Subjective: on vent, not responding, off sedation x 2 days - Objective Vital Signs & Weight: Vital Signs (12 hours) Pulse Ox 01/08/21 08:00 92 L Weight Admit Weight 164 lb Weight 186 lb 8.177 oz Most Recent Monitor Data Heart Rate from ECG 83 NIBP 93/51 NIBP BP-Mean 65 Respiration from ECG 17 SpO2 81 I&O: 01/07/21 01/08/21 01/09/21 06:59 06:59 06:59 Intake Total 1800 814 Output Total 995 725 Balance 805 89 Result Diagrams: 01/07/21 04:30 01/07/21 04:30 Additional Labs: Accuchecks 01/07/21 11:36 POC Glucose 146 H Hospitalist Exam Vitals: Vital Signs (12 hours) Pulse Ox 01/08/21 08:00 92 L Weight Admit Weight 164 lb Weight 186 lb 8.177 oz Most Recent Monitor Data Heart Rate from ECG 83 NIBP 93/51 NIBP BP-Mean 65 Respiration from ECG 17 SpO2 81 General Appearance: ill appearing Eye: PERRL, anicteric sclera ENT: no oropharyngeal lesions, dry oral mucosa Neck: supple, no JVD Heart: RRR, no murmur Respiratory: no wheezes, no rales, rhonchi Gastrointestinal: soft, non-tender, non-distended, normal bowel sounds Extremities: no cyanosis, no edema Neurological: cranial nerve grossly intact, no focal deficits Hosp A/P (1) Acute respiratory failure with hypoxia Code(s): J96.01 - ACUTE RESPIRATORY FAILURE WITH HYPOXIA Status: Acute (2) CHARISSE (acute kidney injury) Code(s): N17.9 - ACUTE KIDNEY FAILURE, UNSPECIFIED Status: Acute (3) Pneumonia due to COVID-19 virus Code(s): U07.1 - COVID-19; J12.82 - PNEUMONIA DUE TO CORONAVIRUS DISEASE 2019 Status: Acute (4) Metabolic acidosis Code(s): E87.2 - ACIDOSIS Status: Acute (5) Chronic diastolic heart failure Code(s): I50.32 - CHRONIC DIASTOLIC (CONGESTIVE) HEART FAILURE Status: Chronic (6) Atrial fibrillation Code(s): I48.91 - UNSPECIFIED ATRIAL FIBRILLATION Status: Chronic Qualifiers: Atrial fibrillation type: paroxysmal Qualified Code(s): I48.0 - Paroxysmal atrial fibrillation (7) Chronic obstructive pulmonary disease Status: Chronic Qualifiers: COPD type: chronic bronchitis Chronic bronchitis type: unspecified Qualified Code(s): J42 - Unspecified chronic bronchitis (8) Cirrhosis Code(s): K74.60 - UNSPECIFIED CIRRHOSIS OF LIVER Status: Chronic Qualifiers: Hepatic cirrhosis type: unspecified hepatic cirrhosis (9) Diabetes mellitus Code(s): E11.9 - TYPE 2 DIABETES MELLITUS WITHOUT COMPLICATIONS Status: Chronic Qualifiers: Diabetes mellitus type: type 2 Diabetes mellitus terminal block assembler insulin use: with terminal block assembler use Diabetes mellitus complication status: without complication Qualified Code(s): E11.9 - Type 2 diabetes mellitus without complications; Z79.4 - MCC (current) use of insulin (10) Dyslipidemia Code(s): E78.5 - HYPERLIPIDEMIA, UNSPECIFIED Status: Chronic (11) GERD (gastroesophageal reflux disease) Code(s): K21.9 - GASTRO-ESOPHAGEAL REFLUX DISEASE WITHOUT ESOPHAGITIS Status: Chronic Qualifiers: Esophagitis presence: esophagitis presence not specified Qualified Code(s): K21.9 - Gastro-esophageal reflux disease without esophagitis (12) Hypertension Code(s): I10 - ESSENTIAL (PRIMARY) HYPERTENSION Status: Chronic Qualifiers: Hypertension type: essential hypertension Qualified Code(s): I10 - Essential (primary) hypertension (13) Hypothyroid Code(s): E03.9 - HYPOTHYROIDISM, UNSPECIFIED Status: Chronic Qualifiers: Hypothyroidism type: unspecified Qualified Code(s): E03.9 - Hypothyroidism, unspecified (14) FTT (failure to thrive) in adult Status: Acute (15) Physical deconditioning Code(s): R53.81 - OTHER MALAISE Status: Acute (16) Moderate protein-calorie malnutrition Code(s): E44.0 - MODERATE PROTEIN-CALORIE MALNUTRITION Status: Acute - Plan got intubated on 12/27, hospitalized on 12/22, diagnosed with covid on 12/23. is on dexamethasone, alb inh, nph 20 u bid, protonix, synthroid, 1/2 ns, vit C, lactulose 20g daily for h/o cirrhosis crp is around 3, wbc is 24k with 23% bands (will send osullivan cultures and start empiric antibiotics due to bandemia), Was on doxy from 12/26 to 2/5, cefepime for 2 days from 12/26 to 12/28. recent femoral neck fracture with repair on left side, sutures are healing well has severe deconditioning, multiple med issues, poor prognosis unable to reach son Josh [phone] x1, or daughter [phone] x2 t imes over phone 01/06/2021 worsening renal function needing HD, this was d/w son and he was ini tially wanting HD to be started but after he spoke to they have decided to go into withdrawal of care with very poor prognosis. He has refused hospice to be set up with withdrawal of care for now. RN and RT notified of family's decision, and are on standy to assist.
--- NOTE | 2021-01-08 17:54 | DIS ---
DATE OF ADMISSION: 12/22/2020 DATE OF DISCHARGE: 01/08/2021 DATE OF : 01/08/2021 at 10:32 a.m. PRIMARY CAUSE OF : COVID-19 pneumonia from the last 17 days, acute renal failure from the last 14 days, acute respiratory failure with hypoxia from 14 days. FACTORS CONTRIBUTING TO : Physical deconditioning, congestive heart failure with diastolic dysfunction, chronic atrial fibrillation, chronic obstructive pulmonary disease, cirrhosis. BRIEF COURSE DURING HOSPITALIZATION: Mr. Petey Santiago got hospitalized on the with complaints of shortness of breath. He was diagnosed with COVID-19 pneumonia and initially placed on nasal cannula oxygen. He has had progressive deconditioning with worsening of his infiltrates, and the patient was finally intubated on the . Since then, he has not progressed and in fact had worsening renal failure. The patient had BUN and creatinine of 161 and 2.1 on the and a decision had to be made regarding initiation of dialysis. Me and Dr. Zavala both spoke to the patient's son, Mr. Peters and explained to him the severe deconditioning his father has and poor prognosis. Mr. Peters, son did not want to proceed with dialysis and wanted to go in for withdrawal of care and initially not wanted hospice to be set up. The patient had withdrawal of care and was transferred to medical floor with comfort care only. This morning around 10:32 a.m., the patient was declared . His body will be released to home per hospital protocol. Job ID: [id number]
--- NOTE | 2021-01-10 07:50 | PQF ---
CLINICAL DOCUMENTATION CLARIFICATION FORM: Dear : Cecilio Fuentes Date / Time: 01/10/21 07:49 Please exercise your independent, professional judgment in responding to the clarification form. Clinical indicators are provided on the bottom of this form for your review Please check appropriate box(es): [ x ] Sepsis due to Covid 19 infection [ ] Severe Sepsis due to Covid 19 infection [ ] Localized infection without sepsis [ ] Other diagnosis, please specify [ ] Unable to determine In addition, please specify: Present on Admission (POA): [x ] Yes [ ] No [ ] Unable to determine Physician Signature: Date/Time: For continuity of documentation, please document condition throughout progress notes and discharge summary. Thank You. To be completed by CDI/Coding staff for physician review: Present Clinical Indicators - Signs / Symptoms / Labs Results and Location in Medical Record [x] Covid19 PNA DS 01/08 [x] CHARISSE DS 01/08 [x] Acute respiratory failure DS 01/08 [x] Acidosis PN 01/07 [x] Chest Xray: patchy groundglass infiltrates Chest Xray 12/15 [x] Temp: 12/2837=303.6 VS flowsheets 12/28 [x] Pulse: 01/0796=516 VS flowsheets 01/07 [x] BP: 12/27=90/42 12/3038=934/50 VS flowsheets 12/27 [x] Respi: 12/28=22 12/30=22 VS flowsheets 12/28 [x] WBC: 12/26=14.4 12/27=15.6 01/07=37.2 Laboratory 12/26 [x] Blood culture: enteroccus faecium Laboratory 01/06 Present Risk Factors Results and Location in Medical Record [x] Covid19 PNA DS 01/08 [x] CHF PN 01/07 [x] DM PN 01/07 [x] Cirrhosis PN 01/07 [x] Moderate PCM PN 01/07 [x] 85 years old male HP 12/22 Present Treatments Results and Location in Medical Record [x] Intubation with ventilation DS 01/08 [x] IVF JAN 29 [x] Remdesivir 200mg IV JAN 29 [x] Cefepime 1gm IV JAN 29 [x] Vibramycin 100mg IV MAR 01/26 [x] Levophed 250ml IV JAN 29 [x] Pulmonology Consult Consult 12/23 CDS/Tire Mold Tester Signature: Rayna Acosta Phone #: ext [phone] Date/Time: 01/10/21 This is a permanent part of the Medical Record [facility]
--- NOTE | 2021-01-10 12:54 | EKG ---
Test Reason : SOB Blood Pressure : / mmHG Vent. Rate : 070 BPM Atrial Rate : 059 BPM P-R Int : 000 ms QRS Dur : 118 ms QT Int : 406 ms P-R-T Axes : 000 -39 109 degrees QTc Int : 438 ms Atrial fibrillation with occasional ventricular-paced complexes and with premature ventricular or gonzalo rrantly conducted complexes Left axis deviation Cannot rule out Anterior infarct , age undetermined Abnormal ECG Confirmed by CHADWICK Linder, REX ([id number]), content editor PRECIOUS FORBES ([id number]) on 01/10/2021 12:54:08 PM Referred By: Confirmed By:REX GENAO M.D.
== END 2021-01-08 10:32 | disposition expired | DRG 870 ==
LOC: ERS 18:14 → 2SW 21:17 → CCU 12-27 13:31 → T4-B 01-08 00:22
PROVIDERS: ADMIT Student in an Organized Health Care Education/Training Program; ATTEND Internal Medicine
PROC: XW13325 Transfusion of Convalescent Plasma (Nonautologous) into Peripheral Vein, Percutaneous Approach, New Technology Group 5 (ICD-10-PCS; 2020-12-23)
PROC: XW033E5 Introduction of Remdesivir Anti-infective into Peripheral Vein, Percutaneous Approach, New Technology Group 5 (ICD-10-PCS; 2020-12-24)
PROC: 3E033XZ Introduction of Vasopressor into Peripheral Vein, Percutaneous Approach (ICD-10-PCS; principal; 2020-12-27)
PROC: 5A1955Z Respiratory Ventilation, Greater than 96 Consecutive Hours (ICD-10-PCS; 2020-12-27)
PROC: 0BH17EZ Insertion of Endotracheal Airway into Trachea, Via Natural or Artificial Opening (ICD-10-PCS; 2020-12-27)
PROC: 30233R1 Transfusion of Nonautologous Platelets into Peripheral Vein, Percutaneous Approach (ICD-10-PCS; 2020-12-29)
DX: A41.89 Other specified sepsis (principal); U07.1 COVID-19; J96.01 Acute respiratory failure with hypoxia; J12.82 Pneumonia due to coronavirus disease 2019; I42.9 Cardiomyopathy, unspecified; I13.0 Hypertensive heart and chronic kidney disease with heart failure and stage 1 through stage 4 chronic kidney disease, or unspecified chronic kidney disease; J44.0 Chronic obstructive pulmonary disease with (acute) lower respiratory infection; K86.1 Other chronic pancreatitis; D61.818 Other pancytopenia; E87.2 Acidosis; N17.9 Acute kidney failure, unspecified; E87.0 Hyperosmolality and hypernatremia; I50.32 Chronic diastolic (congestive) heart failure; E44.0 Moderate protein-calorie malnutrition; Z66 Do not resuscitate; I25.10 Atherosclerotic heart disease of native coronary artery without angina pectoris; E03.9 Hypothyroidism, unspecified; K21.9 Gastro-esophageal reflux disease without esophagitis; E78.5 Hyperlipidemia, unspecified; E78.00 Pure hypercholesterolemia, unspecified; Z96.642 Presence of left artificial hip joint; N18.30 Chronic kidney disease, stage 3 unspecified; E11.22 Type 2 diabetes mellitus with diabetic chronic kidney disease; D75.82 Heparin induced thrombocytopenia (HIT); K74.60 Unspecified cirrhosis of liver; T36.1X5A Adverse effect of cephalosporins and other beta-lactam antibiotics, initial encounter; D63.1 Anemia in chronic kidney disease; E87.8 Other disorders of electrolyte and fluid balance, not elsewhere classified; R62.7 Adult failure to thrive; Z85.51 Personal history of malignant neoplasm of bladder; Z95.810 Presence of automatic (implantable) cardiac defibrillator; Z90.49 Acquired absence of other specified parts of digestive tract; Z79.52 Long term (current) use of systemic steroids; Z79.899 Other long term (current) drug therapy; Z91.81 History of falling; S72.002D Fracture of unspecified part of neck of left femur, subsequent encounter for closed fracture with routine healing; Z68.26 Body mass index [BMI] 26.0-26.9, adult; E87.5 Hyperkalemia; Z95.1 Presence of aortocoronary bypass graft; I48.0 Paroxysmal atrial fibrillation
CPT/HCPCS: 36415; 36416; 36430; 36600; 71045; 71275; 80048; 80053; 80076; 82140; 82553; 82728; 82805; 83880; 84450; 84460; 84484; 85007; 85025; 85027; 85379; 85384; 85610; 85730; 86140; 86850; 86900; 86901; 87040; 87070; 87077; 87086; 87149; 87186; 87205; 93005; 94002; 94003; 94664; J0692; J1100; J1815; J2185; J2270; J2704; J3010; J3370; J3490; J7042; J7050; J7070; P9017; P9035; P9047; Q9967; U0002